=== PATIENT | female | born 1940 | race Caucasian/White ===

== ENCOUNTER 2018-10-17 16:23 | Inpatient (IN) | payer MEDICARE, MEDICAID ==
[2018-10-17] MEDS ORDERED: Dextrose 5% in Water 1,000 ML IV PRN (18:14)
[2018-10-17] MEDS ORDERED: Dextrose 50% Abboject 50 ML SYRINGE SLOW IVP PRN (18:14)
[2018-10-17] MEDS: Heparin 5,000 UNITS/ML VIAL SC SCH (21:06)
[2018-10-17] MEDS: Lactated Ringer's 1,000 ML IV SCH (22:21)
--- NOTE | 2018-10-17 23:44 | PDOC.FPRHP ---
- History of Present Illness Chief Complaint: "tired of being weak" History of Present Illness: Patient is a 78YO female with a PMH significant for CAD s/p CABG & PVD , DMII, & CKD stage IV who presented to an outside ED with a chief complaint of progressively worsening generalized weakness that started about 3 weeks ago. The patient reported visiting her local [employer] on October 06 due to weakness and diarrhea and stated she was told she likely had a viral infection. She said her [employer] instructed her to take probiotics & OTC nausea medicine and to drink fluids with electrolytes like gatorade, which she did. However, she reported that her symptoms did not improve. The patient reported that her weakness had become so severe that doing something as simple as walking from her room to the bathroom took everything out of her. She also endorsed some associated SOB with exertion , chills, decreased appetite, lightheadedness, and dry mouth. She also endorsed some episodic diarrhea over the last 3 weeks that has improved over the last 3 days. The patient denied ever seeing any daniel blood or black stools. She also denied ever having any mucus in her stools or any recent antibiotic use or sick contacts. Lastly, the patient denied any urinary symptoms such as dysuria, frequency, or suprapubic pain. Lastly, of note, the patient reported having had a 10 minute episode of sharp, central, non-radiating chest pain around 13:30 while she was laying down. She reported some associated nausea & said she vomited about 3 times but did not note any blood in her vomitus. The patient denied any associated diaphoresis, numbness or focal weakness. ED Course: Transfer from [facility] where she was given 1L of NS and continued on NS @ 150mL/hr. Was also given 4mg of morphine, 3 amps of bicarb & 1g of rocephin. - Allergies/Adverse Reactions Allergies Allergy/AdvReac Type Severity Reaction Status Date / Time dopamine Allergy Verified 10/17/18 18:38 ranolazine [From Ranexa] Allergy Verified 10/17/18 18:38 sulfamethoxazole Allergy Verified 10/17/18 18:38 [From Bactrim] trimethoprim [From Bactrim] Allergy Verified 10/17/18 18:38 - Home Medications Medication Instructions Recorded Confirmed Type Ascorbic Acid [Vitamin C] 500 mg PO BID 10/17/18 10/17/18 History Aspirin [Ecotrin] 81 mg PO DAILY 10/17/18 10/17/18 History Cholecalciferol (Vitamin D3) 1,000 unit PO DAILY 10/17/18 10/17/18 History [Vitamin D3] Clopidogrel Bisulfate [Plavix] 75 mg PO DAILY 10/17/18 10/17/18 History Cyanocobalamin (Vitamin B-12) 1,000 mcg PO DAILY 10/17/18 10/17/18 History [Vitamin B12] Ezetimibe 0.5 tab PO DAILY 10/17/18 10/17/18 History HYDROcodone/Acetaminophen [[place] 1 each PO TID PRN 10/17/18 10/17/18 History 10-325 Tablet] HumaLOG 2 unit SC TID-WM 10/17/18 10/17/18 History Insulin Detemir [Levemir] 10 unit SQ HS 10/17/18 10/17/18 History Iron 65 mg PO DAILY 10/17/18 10/17/18 History Isosorbide Mononitrate [Isosorbide 30 mg PO DAILY 10/17/18 10/17/18 History Mononitrate ER] Magnesium Oxide 400 mg PO BID 10/17/18 10/17/18 History Pantoprazole [Protonix] 40 mg PO BID 10/17/18 10/17/18 History Rosuvastatin Calcium [Crestor] 0.5 tab PO HS 10/17/18 10/17/18 History busPIRone HCl [Buspirone HCl] 10 mg PO BID 10/17/18 10/17/18 History - History PMHx: CAD s/p CABG x3, h/o RI, CKDIV, DMII, PVD PSHx: left CEA, h/o multiple CABGs, L hip and femur fracture repairs, hysterectomy (1963), pacemaker placement (April 2018) FHx: Mother- CAD & RI Brother - CAD & RI Sister- DMII & CAD Social: Lives in [place] with her son. Former smoker w/ an ~40 pack year smoking history. No EtOH or drug use. - Review of Systems General: reports: fever/chills, weight/appetite/sleep changes, fatigue Eyes: reports: other (blurry vision (chronic)). denies: eye pain ENT: reports: other (no sore throat). denies: nasal congestion Respiratory: reports: shortness of breath. denies: cough Cardiovascular: reports: chest pain. denies: palpitation, edema Gastrointestinal: reports: nausea, vomiting, diarrhea. denies: constipation, GI bleeding Genitourinary: reports: other (no frequency). denies: dysuria Skin: denies: rashes, itching Musculoskeletal: denies: swelling, arthritis/arthralgias Neurological: reports: weakness (generalized). denies: numbness, syncope Psychological: denies: anxiety, depression - Vital signs BP: 119/54 HR: 66 RR: 17 Tmax: 97.6F Pox: 99% on RA Wt: 60.691 kg - Physical Exam Constitutional: NAD, awake, alert and oriented, other (thin and frail appearing elderly causacian lady) HEENT: normocephalic and atraumatic, conjunctiva clear, grossly normal vision, grossly normal hearing, oropharynx clear, other (dry mucus membranes) Neck: supple, FROM Chest: no-tender to palpation Heart: RRR, normal S1/S2, pulses present, no edema, other (3/6 systolic murmur heard best at right upper sternal border w/ radiation into B/L carotids) Lungs: CTAB, no respiratory distress, no wheezing, other (fair air movement) Abdomen: soft, non-tender, bowel sounds present Musculoskeletal: normal structure, normal tone, ROM grossly normal, other ( careful gait) Neurological: no focal deficit -Neurological: symmetric facial movements Skin: no rash/lesions, no jaundice Heme/Lymphatic: no unusual bruising or bleeding Psychiatric: normal mood and affect, good judgment and insight, intact recent and remote memory FMR H&P: Results - Labs Result Diagrams: 10/18/18 04:56 10/18/18 00:39 Lab results: WBC- 3.8 H/H- 8.1/20.6 Plt- 163 Na- 137 K- 4.6 Cl- 106 HCO3- 9 BUN- 164 Cr- 16.7 BG- 133 trop- 0.061 Additional comment: UA- cloudy & + for blood & leukocytes - Radiology Interpretation Chest x-ray Status: report reviewed by me (L-sided pleural effusion) FMR H&P: A/P - Problem List (1) UTI (urinary tract infection) Current Visit: Yes Status: Acute Qualifiers: Urinary tract infection type: acute cystitis (2) CAD (coronary artery disease) Current Visit: Yes Status: Chronic Code(s): I25.10 - ATHSCL HEART DISEASE OF [place] CORONARY ARTERY W/O ANG PCTRS (3) DMII (diabetes mellitus, type 2) Current Visit: Yes Status: Chronic Qualifiers: Diabetes mellitus bed bug exterminator insulin use: with jail use (4) CKD (chronic kidney disease), stage IV Current Visit: Yes Status: Acute Code(s): N18.4 - CHRONIC KIDNEY DISEASE, STAGE 4 (SEVERE) (5) ARF (acute renal failure) Current Visit: Yes Status: Chronic Qualifiers: Acute renal failure type: with acute tubular necrosis Qualified Code(s): N17.0 - Acute kidney failure with tubular necrosis (6) History of RI (myocardial infarction) Current Visit: Yes Status: Chronic Code(s): I25.2 - OLD MYOCARDIAL INFARCTION (7) PVD (peripheral vascular disease) Current Visit: Yes Status: Chronic Code(s): I73.9 - PERIPHERAL VASCULAR DISEASE, UNSPECIFIED - Plan 78YOF w/ a PMH significant for DMII, PVD, & CAD w/ h/o RI and CABG x3 who was transferred from an outside ED after presenting there with a CC of progressively worsening fatigue, generalized weakness, chills and episodic diarrhea for the last 2 weeks found to have a UTI on UA. ARF superimposed on CKD stage IV: - Patient appeared clinically dry on exam and her inital BUN & Cr were significantly elevated at 164 & 16.7. - Most likely pre-renal in origin 2/2 decreased PO intake from UTI. - s/p 1L of NS at outside ED. Will continue gentle IVFs w/ LR @ 70mL/hr. - Will consult patient's reimbursement director, Dr. Tanner, for further management recommendations. - Will continue to monitor closely w/ QD labs. UTI: - Patient was found to have a dirty UA that was noted to be cloudy & + for blood and leukocytes. - Culture pending. - Was given one 1g dose of IV rocephin at outside ED which we will continue. - Will encourage increased PO hydration and will start on gentle IVFs as described above. Indeterminate troponin: - Initial troponin of 0.061 at outside ED. Likely related to ARF. - ECG at outside ED did not show any concerning ST segment changes. - Will continue to trend x2. Anemia: - Aware, Hgb of 8.1 on admission. Likely 2/2 CKD. - Will resume home iron and vitamins. Leukopenia: - WBC of 3.8 at outside ED. - Likely related to pancytopenia from CKD but could also be 2/2 UTI. DMII: - Patient is on insulin at home. Will resume once patient is adequately taking in PO. - Will resume home metformin. - Will order ACHS accuchecks & hypoglycemia protocol. CAD s/p CABG: - Aware, will resume home meds. PVD: - Aware, will resume home meds. FMR H&P: Upper Level - Pertinent history 78 yo F with PMHx diffuse PVD, CAD, IDDM and CKD Stage IV who presented to OSH with cc of weakness that has worsened over the last month. She states that earlier in the month she had diarrhea on and off and thought it was a viral infection. She took probiotics and drank fluids with minimal relief of symptoms. She has become progressively more weak and tired since that time. She reports the diarrhea has improved and she has not had any for the last few days. She has had regular UOP without noting any foul odor or hematuria. She was seen at OSH and found to have ARF. Her reimbursement director, Dr. Tanner, was contacted and recommended direct admission to [facility]. - Pertinent findings VSS Gen: awake, alert, oriented HEENT: conjunctiva non-injected, trachea midline CV: RRR, 3/6 systolic murmur noted RESP: CTAB ABD: soft, nontender, nondistended EXT: no edema - Plan Date/Time: 10/17/18 2342 78 yo F with Acute Renal Failure superimposed on CKD stage IV likely 2/2 acute cystitis and dehydration 1. Acute Renal Failure - Dr Tanner notified at OSH - Will start gentle fluids and monitor BMP - Renally dose medications 2. Acute cystitis - Dirty UA - UA and UCx ordered repeat here, will need to f/u UCx from OSH - Rocephin 3. Indeterminate troponin: - Asymptomatic at this time, will repeat and monitor on tele Please see Dr. Loo's H&P regarding remainder of A/P I, Odette Lal MD, PGY-3, have evaluated this patient and agree with findings/ plan as outlined by planner intern resident. Pertinent changes/additions are listed here. Attending Addendum - Attending Addendum Date/Time: 10/17/18 1830 I personally evaluated the patient and discussed the management with Dr. Loo. I agree with the History, Examination, Assessment and Plan documented above with any addition or exceptions noted below. The patient presented to the [place] ER with worsening weakness. She has had close to amonth long history of intermittent n/v/d. She went to PCP and was told she has viral gastroenteritis. Her weakness worsened and she was noted to have a creatinine of 16 in the ER ad BUN 164. She was found to have a uti. She will be treated with Rocephin. We will continue IV fluids. Dr. Tanner is consulted who is her regular reimbursement director. Trend creatinine. Check Echo. Check cardiac enzymes.
[2018-10-17] MEDS ORDERED: cefTRIAXone\\ROCEPHIN 1 GM in Sodium Chloride 0.9% 100 ML IVPB SCH (23:59)
[2018-10-18 01:15] LABS: Troponin I 0.128 ng/mL (< 0.028)
[2018-10-18 01:24] LABS: Hemoglobin A1c 7.7 % (4.0-6.0)
[2018-10-18 01:25] LABS: Anion Gap 19 mmol/L (10-20); Calc. Creatinine Clearance 3 mL/min (70-130); Calcium 8.8 mg/dL (7.8-10.44); Carbon Dioxide 12 mmol/L (23-31); Chloride 113 mmol/L (98-107); Estimated GFR-MDRD 2; Glucose 138 mg/dL (83-110); Magnesium 1.9 mg/dL (1.6-2.6); Potassium 4.2 mmol/L (3.5-5.1); Sodium 140 mmol/L (136-145)
[2018-10-18 01:37] LABS: BUN (Urea Nitrogen) 136 mg/dL (9.8-20.1)
[2018-10-18 05:45] LABS: CKMB 5.5 ng/mL (0-6.6); Phosphorus 7.9 mg/dL (2.3-4.7); Troponin I 0.118 ng/mL (< 0.028)
[2018-10-18] MEDS: HYDROcodone/Acetaminophen 10/325 mg Tablet PO PRN (05:45)
[2018-10-18] MEDS: Ondansetron ODT 4 MG TAB PO PRN (07:36)
--- NOTE | 2018-10-18 07:55 | PDOC.FM ---
- Subjective Subjective: No acute events overnight. Endorses nausea, denies feeling SOB, dyspnea on exertion. Denies dysuria, chest pain. Endorses orthopnea. - Objective MAR Reviewed: Yes Vital Signs & Weight: Vital Signs (12 hours) Temp Pulse Resp BP Pulse Ox 10/18/18 06:52 60 14 102/46 L 93 L 10/18/18 03:12 97.4 F L 79 18 117/54 L 96 10/18/18 00:00 97.8 F 69 18 110/52 L 96 10/17/18 20:00 97.6 F 66 17 119/54 L 99 Weight Weight 60.691 kg I&O: 10/17/18 10/18/18 10/19/18 06:59 06:59 06:59 Intake Total 660 Output Total 0 Balance 660 Result Diagrams: 10/18/18 04:56 10/18/18 00:39 <Leatha Springer - Last Filed: 10/18/18 11:15> - Objective Vital Signs & Weight: Vital Signs (12 hours) Temp Pulse Resp BP Pulse Ox 10/18/18 11:40 97.7 F 61 16 94/45 L 10/18/18 09:17 97.6 F 10/18/18 07:09 93 L 10/18/18 06:52 60 14 102/46 L 93 L 10/18/18 03:12 97.4 F L 79 18 117/54 L 96 Weight Weight 60.691 kg I&O: 10/17/18 10/18/18 10/19/18 06:59 06:59 06:59 Intake Total 660 Output Total 0 100 Balance 660 -100 Result Diagrams: 10/18/18 04:56 10/18/18 00:39 <Susana Weiss - Last Filed: 10/18/18 14:20> Phys Exam - Physical Examination Constitutional: NAD HEENT: PERRLA, sclera anicteric dry oral mucosa Neck: full ROM fine bibasilar crackles Cardiovascular: RRR 2/6 systolic murmur Gastrointestinal: soft, non-tender, no distention, positive bowel sounds Musculoskeletal: no edema, pulses present Neurological: non-focal, moves all 4 limbs Psychiatric: A&O x 3 Deviation from normal: slowed speech, not slurred <Leatha Springer - Last Filed: 10/18/18 11:15> Dx/Plan (1) ARF (acute renal failure) Status: Chronic Qualifiers: Acute renal failure type: with acute tubular necrosis Qualified Code(s): N17.0 - Acute kidney failure with tubular necrosis (2) CKD (chronic kidney disease), stage IV Code(s): N18.4 - CHRONIC KIDNEY DISEASE, STAGE 4 (SEVERE) Status: Acute (3) UTI (urinary tract infection) Status: Acute Qualifiers: Urinary tract infection type: acute cystitis (4) History of [place] (myocardial infarction) Code(s): I25.2 - OLD MYOCARDIAL INFARCTION Status: Chronic (5) PVD (peripheral vascular disease) Code(s): I73.9 - PERIPHERAL VASCULAR DISEASE, UNSPECIFIED Status: Chronic - Plan Plan: 78 yo F with ARF on CKD IV, UTI. ARF on CKD stage IV -BUN/Cr improved at 136/14 with gentle fluids -Continue NS @ 70cc/hr -Dr. Tanner consulted, appreciate recs -Continue monitoring with labs -Respiratory status stable -Due to extensive cardiac hx will order TTE to eval for any new onset CHF that could be contributing to fluid overload UTI - Patient was found to have a dirty UA that was noted to be cloudy & + for blood and leukocytes. - Culture pending. - Was given one 1g dose of IV rocephin at outside ED which we will continue. - Will encourage increased PO hydration and will start on gentle IVFs as described above. Indeterminate troponin -0.061-> .128 -> .118. Trending down, likely due to demand Anemia - Aware, Hgb of 8.1 on admission. Likely 2/2 CKD. - Will resume home iron and vitamins. Leukopenia - WBC of 3.8 at outside ED. - Likely related to pancytopenia from CKD but could also be 2/2 UTI. IDDM2 - Patient is on insulin at home. Will resume once patient is adequately taking in PO. - Sliding scale to cover - Hold home metformin CAD s/p CABG - Aware, will resume home meds. PVD - Aware, will resume home meds. dvt ppx: heparin Discussed with Dr. Weiss <Leatha Springer - Last Filed: 10/18/18 11:15> (1) UTI (urinary tract infection) Status: Acute Qualifiers: Urinary tract infection type: acute cystitis (2) CAD (coronary artery disease) Code(s): I25.10 - ATHSCL HEART DISEASE OF [place] CORONARY ARTERY W/O ANG PCTRS Status: Chronic (3) DMII (diabetes mellitus, type 2) Status: Chronic Qualifiers: Diabetes mellitus long term care administrator insulin use: with long term care administrator use (4) CKD (chronic kidney disease), stage IV Code(s): N18.4 - CHRONIC KIDNEY DISEASE, STAGE 4 (SEVERE) Status: Acute (5) ARF (acute renal failure) Status: Chronic Qualifiers: Acute renal failure type: with acute tubular necrosis Qualified Code(s): N17.0 - Acute kidney failure with tubular necrosis (6) History of NV (myocardial infarction) Code(s): I25.2 - OLD MYOCARDIAL INFARCTION Status: Chronic (7) PVD (peripheral vascular disease) Code(s): I73.9 - PERIPHERAL VASCULAR DISEASE, UNSPECIFIED Status: Chronic <Susana Weiss - Last Filed: 10/18/18 14:20> Attending Addendum - Attending Addendum Date/Time: 10/18/18 0311 I personally evaluated the patient and discussed the management with Dr. Springer. I agree with the History, Examination, Assessment and Plan documented above with any addition or exceptions noted below. The patient's creatinine is minimally improved. Dr. Tanner has been consulted and we are waiting on his recs. Echo will be ordered. Continue IV antibiotics. <Susana Weiss - Last Filed: 10/18/18 14:20>
[2018-10-18] MEDS: Heparin 5,000 UNITS/ML VIAL SC SCH ×3 (09:19→22:18)
[2018-10-18] MEDS: Ascorbic Acid 500 mg Chewable Tablet PO SCH ×2 (09:19→22:23)
[2018-10-18] MEDS: Ezetimibe 10 MG TAB PO SCH (09:19)
[2018-10-18] MEDS: Aspirin 81 mg Enteric Coated Tablet PO SCH (09:20)
[2018-10-18] MEDS: Ferrous Sulfate 325 MG TAB PO SCH (09:20)
[2018-10-18] MEDS: Magnesium Oxide 400 MG TAB PO SCH ×2 (09:20→22:23)
[2018-10-18] MEDS: Cyanocobalamin (Vitamin B-12) 1,000 MCG TAB PO SCH (09:20)
[2018-10-18] MEDS: Clopidogrel Bisulfate 75 MG TAB PO SCH (09:20)
[2018-10-18 10:14] LABS: #Basophils 0.1 thou/uL (0.0-0.2); #Eosinphils 0.2 thou/uL (0.0-0.7); #Lymphocytes 1.1 thou/uL (1.20-3.40); #Monocytes 0.4 thou/uL (0.11-0.59); #Neutrophils 1.4 thou/uL (1.40-6.50); %Basophils 1.8 % (0.0-1.0); %Lymphocytes 34.4 % (21.0-51.0); %Monocytes 13.8 % (0.0-10.0); Hemoglobin 7.4 g/dL (12.0-16.0); Mean Corpuscular HGB CONC 32.8 g/dL (32.0-36.0); Mean Corpuscular Hemoglobin 30.6 pg (27.0-31.0); Mean Corpuscular Volume 93.3 fL (78.0-98.0); Mean Platelet Volume 8.2 fL (7.4-10.4); Platelet Count 152 thou/uL (130-400); RBC Distribution Width 13.3 % (11.5-14.5); Red Blood Cell (RBC) Count 2.41 mill/uL (4.20-5.40); White Blood Cell (WBC) Count 3.1 thou/uL (4.8-10.8)
[2018-10-18] MEDS ORDERED: Sodium Chloride 0.9% 1,000 ML IV SCH (11:15)
[2018-10-18 11:19] LABS: Bilirubin Negative (Negative); Blood, Urine Moderate (Negative); Glucose, Urine (Dipstick) Negative (Negative); Leukocyte Large (Negative); Nitrite Positive (Negative); Protein, Urine (Dipstick) 100 mg/dL (Neg-Trace); Urobilinogen 0.2 mg/dL (0.2-1.0)
[2018-10-18 11:23] LABS: Clarity CLOUDY (Clear)
[2018-10-18 11:32] LABS: Bacteria/HPF 4+ HPF (None Seen); Hyaline Casts/LPF NONE SEEN LPF (0-3 Hyaline)
[2018-10-18] MEDS ORDERED: cefTRIAXone\\ROCEPHIN 1 GM in Sodium Chloride 0.9% 100 ML IVPB SCH (12:10)
[2018-10-18 13:01] LABS: Creatinine, Urine 56.25 mg/dL (47-110)
[2018-10-18] MEDS: Ondansetron PF 4 MG/2 ML Vial IVP PRN ×2 (14:07→21:29)
[2018-10-18] MEDS: Lactated Ringer's 1,000 ML IV SCH (19:35)
[2018-10-18 20:37] LABS: BUN (Urea Nitrogen) 133 mg/dL (9.8-20.1)
[2018-10-18 20:58] LABS: Chloride 113 mmol/L (98-107); Potassium 4.4 mmol/L (3.5-5.1); Sodium 141 mmol/L (136-145)
[2018-10-18 20:59] LABS: Calcium 8.8 mg/dL (7.8-10.44); Glucose 136 mg/dL (83-110)
[2018-10-18 21:01] LABS: Anion Gap 23 mmol/L (10-20)
[2018-10-18 21:03] LABS: Calc. Creatinine Clearance 3 mL/min (70-130); Estimated GFR-MDRD 3
[2018-10-18 21:06] LABS: Carbon Dioxide 9 mmol/L (23-31)
[2018-10-18] MEDS ORDERED: Sodium Bicarbonate 50 MEQ in Dextrose 5 %-0.45 % NaCl 1,000 ML IV SCH (22:15)
[2018-10-18] MEDS: Rosuvastatin 20 MG TAB PO SCH (22:23)
[2018-10-18] MEDS ORDERED: Pantoprazole 40 MG VIAL IVP SCH (23:45)
[2018-10-19] MEDS: cefTRIAXone\\ROCEPHIN 1 GM in Sodium Chloride 0.9% 100 ML IVPB SCH ×2 (00:17→23:37)
--- NOTE | 2018-10-19 05:26 | PDOC.FM ---
- Subjective Subjective: Patient bicarb critical at 9 and was started on IV bicarb. No acute events overnight otherwise. Denies chest pain, SOB, leg swelling. - Objective MAR Reviewed: Yes Vital Signs & Weight: Vital Signs (12 hours) Temp Pulse Resp BP Pulse Ox 10/19/18 04:00 98.2 F 64 18 101/49 L 97 10/18/18 23:45 97.9 F 69 18 115/51 L 98 10/18/18 20:00 97.9 F 68 18 119/55 L 98 Weight Weight 60.691 kg I&O: 10/17/18 10/18/18 10/19/18 06:59 06:59 06:59 Intake Total 660 840 Output Total 0 200 Balance 660 640 Result Diagrams: 10/19/18 05:27 10/19/18 05:27 <Leatha Springer - Last Filed: 10/19/18 09:46> - Objective Vital Signs & Weight: Vital Signs (12 hours) Temp Pulse Resp BP Pulse Ox 10/19/18 15:00 97.5 F L 63 19 104/51 L 94 L 10/19/18 11:00 97.7 F 68 19 124/57 L 94 L 10/19/18 07:00 97.3 F L 65 16 118/53 L 93 L 10/19/18 04:00 98.2 F 64 18 101/49 L 97 Weight Weight 60.691 kg I&O: 10/18/18 10/19/18 10/20/18 06:59 06:59 06:59 Intake Total 660 840 Output Total 0 200 Balance 660 640 Result Diagrams: 10/19/18 05:27 10/19/18 05:27 <Susana Weiss - Last Filed: 10/19/18 15:32> Phys Exam - Physical Examination Constitutional: NAD cachectic appearing HEENT: sclera anicteric dry mucosal membranes Neck: full ROM Respiratory: no wheezing, no rhonchi, clear to auscultation bilateral Cardiovascular: RRR, no significant murmur Gastrointestinal: soft, non-tender, no distention Musculoskeletal: no edema, pulses present Neurological: non-focal, moves all 4 limbs Deviation from normal: sad, sleep affect Deviation from normal: dec skin turgor <Leatha Springer - Last Filed: 10/19/18 09:46> Dx/Plan (1) ARF (acute renal failure) Status: Acute Qualifiers: Acute renal failure type: with acute tubular necrosis Qualified Code(s): N17.0 - Acute kidney failure with tubular necrosis (2) CKD (chronic kidney disease), stage IV Code(s): N18.4 - CHRONIC KIDNEY DISEASE, STAGE 4 (SEVERE) Status: Chronic (3) UTI (urinary tract infection) Status: Acute Qualifiers: Urinary tract infection type: acute cystitis (4) DMII (diabetes mellitus, type 2) Status: Chronic Qualifiers: Diabetes mellitus shelter insulin use: with shelter use (5) History of [place] (myocardial infarction) Code(s): I25.2 - OLD MYOCARDIAL INFARCTION Status: Chronic (6) PVD (peripheral vascular disease) Code(s): I73.9 - PERIPHERAL VASCULAR DISEASE, UNSPECIFIED Status: Chronic - Plan Plan: 78 yo F with ARF on CKD IV, UTI. ARF on CKD stage IV -s/p IV bicarb infusion for HCO3 9 -Creatinine unchanged at 13 with gentle fluids -Electrolytes stable at this time -Dec UO: 200/24 hr -Likely due to worsening of pre-renal JOSE due to poor po intake -Increase D5 1/2NS to 100cc/hr; goal of 400-500cc in 24 hr -Dr. Tanner plans to continue monitoring renal function until this evening with probably initiation of HD if unimproved. -Continue monitoring with daily BMPs -Respiratory status stable -Pending echo to assess for new acute cardiac structural changes UTI - Patient was found to UA consistent with UTI - Culture pending from OSH and here - Continue rocephin Chronic anemia - Aware, Hgb of 8.1 on admission. Likely 2/2 CKD. - Will resume home iron and vitamins. Chronic neutropenia - Possible underlying hematologic malignancy - Will order PBS - Will need outpt workup IDDM2 -Glucose stable - Patient is on insulin at home. Will resume once patient is adequately taking in PO. - Sliding scale to cover Leukopenia - WBC 3.8 -> 3.1 - Likely related to pancytopenia from CKD but could also be 2/2 UTI. CAD s/p CABG - Aware, will resume home meds. PVD - Aware, will resume home meds. Indeterminate troponins -0.061-> .128 -> .118. -Trended down, likely due to demand -No further mgmt at this time, continue to monitor for clinical sxs of ischemic chest pain -Tele monitoring dvt ppx: heparin dispo: Stable. Unimproved creatinine despite gentle fluids. Will inc. fluids & monitor renal function. Goal UO of 400-500cc/24hr. F/u with Dr. Tanner's recs for possible HD Discussed with Dr. Weiss <Leatha Springer - Last Filed: 10/19/18 09:46> (1) UTI (urinary tract infection) Status: Acute Qualifiers: Urinary tract infection type: acute cystitis (2) CAD (coronary artery disease) Code(s): I25.10 - ATHSCL HEART DISEASE OF [place] CORONARY ARTERY W/O ANG PCTRS Status: Chronic (3) DMII (diabetes mellitus, type 2) Status: Chronic Qualifiers: Diabetes mellitus watermelon inspector insulin use: with watermelon inspector use (4) CKD (chronic kidney disease), stage IV Code(s): N18.4 - CHRONIC KIDNEY DISEASE, STAGE 4 (SEVERE) Status: Chronic (5) ARF (acute renal failure) Status: Acute Qualifiers: Acute renal failure type: with acute tubular necrosis Qualified Code(s): N17.0 - Acute kidney failure with tubular necrosis (6) History of [place] (myocardial infarction) Code(s): I25.2 - OLD MYOCARDIAL INFARCTION Status: Chronic (7) PVD (peripheral vascular disease) Code(s): I73.9 - PERIPHERAL VASCULAR DISEASE, UNSPECIFIED Status: Chronic <Susana Weiss - Last Filed: 10/19/18 15:32> Attending Addendum - Attending Addendum Date/Time: 10/19/18 6408 I personally evaluated the patient and discussed the management with Dr. Springer. I agree with the History, Examination, Assessment and Plan documented above with any addition or exceptions noted below. The patient is doing well. She notes nausea is controlled this morning. Bicarb is 8 and creatinine 13. Pt is continuing on iv fluids and we are trending creatinine. F/u with nephrology recs. <Susana Weiss - Last Filed: 10/19/18 15:32>
[2018-10-19] MEDS ORDERED: Sodium Chloride 0.9% 1,000 ML IV SCH (05:30)
[2018-10-19 05:53] LABS: #Eosinphils 0.1 thou/uL (0.0-0.7); #Lymphocytes 0.9 thou/uL (1.20-3.40); #Monocytes 0.5 thou/uL (0.11-0.59); #Neutrophils 2.2 thou/uL (1.40-6.50); %Basophils 0.6 % (0.0-1.0); %Eosinophils 2.2 % (0.0-10.0); %Lymphocytes 23.9 % (21.0-51.0); %Monocytes 13.2 % (0.0-10.0); Hemoglobin 8.1 g/dL (12.0-16.0); Mean Corpuscular HGB CONC 31.6 g/dL (32.0-36.0); Mean Corpuscular Hemoglobin 29.9 pg (27.0-31.0); Mean Corpuscular Volume 94.7 fL (78.0-98.0); Mean Platelet Volume 7.9 fL (7.4-10.4); Platelet Count 173 thou/uL (130-400); RBC Distribution Width 13.4 % (11.5-14.5); White Blood Cell (WBC) Count 3.6 thou/uL (4.8-10.8)
[2018-10-19 06:03] LABS: Anion Gap 23 mmol/L (10-20); Calc. Creatinine Clearance 3 mL/min (70-130); Calcium 8.6 mg/dL (7.8-10.44); Chloride 113 mmol/L (98-107); Estimated GFR-MDRD 3; Glucose 172 mg/dL (83-110); Potassium 4.2 mmol/L (3.5-5.1); Sodium 140 mmol/L (136-145)
[2018-10-19 06:04] LABS: Carbon Dioxide 8 mmol/L (23-31)
[2018-10-19 06:14] LABS: BUN (Urea Nitrogen) 132 mg/dL (9.8-20.1)
[2018-10-19] MEDS: Pantoprazole 40 MG VIAL IVP SCH (08:06)
[2018-10-19] MEDS: Ondansetron PF 4 MG/2 ML Vial IVP PRN (09:00)
[2018-10-19] MEDS: Heparin 5,000 UNITS/ML VIAL SC SCH ×3 (09:03→20:56)
[2018-10-19] MEDS: Clopidogrel Bisulfate 75 MG TAB PO SCH (09:03)
[2018-10-19] MEDS: Ascorbic Acid 500 mg Chewable Tablet PO SCH ×2 (09:04→20:56)
[2018-10-19] MEDS: Aspirin 81 mg Enteric Coated Tablet PO SCH (09:04)
[2018-10-19] MEDS: busPIRone HCl 10 MG TAB PO SCH ×2 (09:04→20:56)
[2018-10-19] MEDS: Ezetimibe 10 MG TAB PO SCH (09:05)
[2018-10-19] MEDS: Cyanocobalamin (Vitamin B-12) 1,000 MCG TAB PO SCH (09:05)
[2018-10-19] MEDS: Magnesium Oxide 400 MG TAB PO SCH ×2 (09:06→20:56)
[2018-10-19] MEDS: Ferrous Sulfate 325 MG TAB PO SCH (09:06)
[2018-10-19] MEDS: Sodium Bicarbonate 50 MEQ in Dextrose 5 %-0.45 % NaCl 1,000 ML IV SCH ×2 (10:44→20:54)
[2018-10-19] MEDS: Promethazine HCl 25 MG/ML VIAL IM/IV PRN ×2 (10:47→19:33)
[2018-10-19] MEDS: HumaLOG 300 UNITS/3 ML VIAL SC PRN (17:19)
[2018-10-19] MEDS: HYDROcodone/Acetaminophen 10/325 mg Tablet PO PRN (17:19)
[2018-10-19] MEDS: Rosuvastatin 20 MG TAB PO SCH (20:56)
[2018-10-20 05:21] LABS: #Eosinphils 0.2 thou/uL (0.0-0.7); #Lymphocytes 1.3 thou/uL (1.20-3.40); #Monocytes 0.7 thou/uL (0.11-0.59); #Neutrophils 2.7 thou/uL (1.40-6.50); %Basophils 0.6 % (0.0-1.0); %Eosinophils 4.8 % (0.0-10.0); %Lymphocytes 26.5 % (21.0-51.0); %Monocytes 14.2 % (0.0-10.0); %Neutrophils 53.8 % (42.0-75.0); Hemoglobin 7.5 g/dL (12.0-16.0); Mean Corpuscular HGB CONC 30.7 g/dL (32.0-36.0); Mean Corpuscular Hemoglobin 29.5 pg (27.0-31.0); Mean Corpuscular Volume 95.8 fL (78.0-98.0); Mean Platelet Volume 7.9 fL (7.4-10.4); Platelet Count 175 thou/uL (130-400); RBC Distribution Width 13.5 % (11.5-14.5); Red Blood Cell (RBC) Count 2.55 mill/uL (4.20-5.40); White Blood Cell (WBC) Count 4.9 thou/uL (4.8-10.8)
[2018-10-20] MEDS: Ondansetron PF 4 MG/2 ML Vial IVP PRN ×2 (05:28→13:38)
[2018-10-20] MEDS: Sodium Bicarbonate 50 MEQ in Dextrose 5 %-0.45 % NaCl 1,000 ML IV SCH ×3 (05:29→21:00)
[2018-10-20 05:37] LABS: Anion Gap 21 mmol/L (10-20); Calc. Creatinine Clearance 4 mL/min (70-130); Calcium 8.2 mg/dL (7.8-10.44); Carbon Dioxide 11 mmol/L (23-31); Chloride 111 mmol/L (98-107); Estimated GFR-MDRD 3; Glucose 211 mg/dL (83-110); Potassium 3.6 mmol/L (3.5-5.1); Sodium 139 mmol/L (136-145)
[2018-10-20 05:56] LABS: BUN (Urea Nitrogen) 117 mg/dL (9.8-20.1)
[2018-10-20] MEDS: Aspirin 81 mg Enteric Coated Tablet PO SCH (08:18)
[2018-10-20] MEDS: Heparin 5,000 UNITS/ML VIAL SC SCH ×3 (08:18→21:01)
[2018-10-20] MEDS: Ascorbic Acid 500 mg Chewable Tablet PO SCH ×2 (08:18→21:00)
[2018-10-20] MEDS: Pantoprazole 40 MG VIAL IVP SCH (08:18)
[2018-10-20] MEDS: busPIRone HCl 10 MG TAB PO SCH ×2 (08:18→21:01)
[2018-10-20] MEDS: Clopidogrel Bisulfate 75 MG TAB PO SCH (08:18)
[2018-10-20] MEDS: Magnesium Oxide 400 MG TAB PO SCH ×2 (08:19→21:00)
[2018-10-20] MEDS: Ezetimibe 10 MG TAB PO SCH (08:19)
[2018-10-20] MEDS: Cyanocobalamin (Vitamin B-12) 1,000 MCG TAB PO SCH (08:19)
[2018-10-20] MEDS: Ferrous Sulfate 325 MG TAB PO SCH (08:19)
[2018-10-20] MEDS: HumaLOG 300 UNITS/3 ML VIAL SC PRN (11:08)
--- NOTE | 2018-10-20 11:59 | PDOC.FM ---
- Subjective Subjective: SUDEEP overnight. Pt reports she feels fatigued, otherwise ok. No other complaints. - Objective Vital Signs & Weight: Vital Signs (12 hours) Temp Pulse Resp BP Pulse Ox 10/20/18 11:10 98.2 F 62 18 120/56 L 96 10/20/18 07:25 98.0 F 63 17 110/64 94 L 10/20/18 03:06 97.9 F 67 19 107/51 L 94 L Weight Weight 65.045 kg I&O: 10/19/18 10/20/18 10/21/18 06:59 06:59 06:59 Intake Total 840 3147 Output Total 200 775 Balance 640 2372 Result Diagrams: 10/20/18 04:56 10/20/18 04:56 <Stuart Lau - Last Filed: 10/20/18 11:55> - Objective Vital Signs & Weight: Vital Signs (12 hours) Temp Pulse Resp BP Pulse Ox 10/20/18 11:10 98.2 F 62 18 120/56 L 96 10/20/18 07:25 98.0 F 63 17 110/64 94 L 10/20/18 03:06 97.9 F 67 19 107/51 L 94 L Weight Weight 65.045 kg I&O: 10/19/18 10/20/18 10/21/18 06:59 06:59 06:59 Intake Total 840 3147 Output Total 200 775 Balance 640 2372 Result Diagrams: 10/20/18 04:56 10/20/18 04:56 <Susana Weiss - Last Filed: 10/20/18 13:17> Phys Exam - Physical Examination Constitutional: NAD HEENT: PERRLA, sclera anicteric Neck: no JVD Respiratory: no wheezing, no rales, no rhonchi, clear to auscultation bilateral Cardiovascular: RRR, no significant murmur, no rub Gastrointestinal: soft, non-tender, no distention, positive bowel sounds Musculoskeletal: pulses present, edema present Neurological: non-focal, moves all 4 limbs Psychiatric: normal affect, A&O x 3 Skin: normal turgor, cap refill <2 seconds <Stuart Lau - Last Filed: 10/20/18 11:55> Dx/Plan (1) ARF (acute renal failure) Status: Acute Qualifiers: Acute renal failure type: with acute tubular necrosis Qualified Code(s): N17.0 - Acute kidney failure with tubular necrosis (2) UTI (urinary tract infection) Status: Acute Qualifiers: Urinary tract infection type: acute cystitis (3) CAD (coronary artery disease) Code(s): I25.10 - ATHSCL HEART DISEASE OF [place] CORONARY ARTERY W/O ANG PCTRS Status: Chronic (4) CKD (chronic kidney disease), stage IV Code(s): N18.4 - CHRONIC KIDNEY DISEASE, STAGE 4 (SEVERE) Status: Chronic (5) DMII (diabetes mellitus, type 2) Status: Chronic Qualifiers: Diabetes mellitus assisted insulin use: with watermelon harvesting supervisor use (6) PVD (peripheral vascular disease) Code(s): I73.9 - PERIPHERAL VASCULAR DISEASE, UNSPECIFIED Status: Chronic - Plan Plan: ARF on CKD stage IV -UO increased slightly to 675/24 hrs - awaiting nephro recs - no HD at this time, creatinine slightly improved UTI - Patient was found to UA consistent with UTI - Culture pending from OSH and here - Continue rocephin - f/u with OSH culture and sensitivities Chronic anemia - stable Chronic neutropenia - PBS pending IDDM2 - Sliding scale to cover Leukopenia - stable - Likely related to pancytopenia from CKD CAD s/p CABG - home meds. PVD - home meds. dvt ppx: heparin dispo: Stable. slightly improved creatinine with increased IVF, cont to monitor UO and await nephrology recommendations. F/u OSH cultures and sensitivities. <Stuart Lau - Last Filed: 10/20/18 11:55> (1) UTI (urinary tract infection) Status: Acute Qualifiers: Urinary tract infection type: acute cystitis (2) CAD (coronary artery disease) Code(s): I25.10 - ATHSCL HEART DISEASE OF [place] CORONARY ARTERY W/O ANG PCTRS Status: Chronic (3) DMII (diabetes mellitus, type 2) Status: Chronic Qualifiers: Diabetes mellitus assisted insulin use: with assisted use (4) CKD (chronic kidney disease), stage IV Code(s): N18.4 - CHRONIC KIDNEY DISEASE, STAGE 4 (SEVERE) Status: Chronic (5) ARF (acute renal failure) Status: Acute Qualifiers: Acute renal failure type: with acute tubular necrosis Qualified Code(s): N17.0 - Acute kidney failure with tubular necrosis (6) History of [place] (myocardial infarction) Code(s): I25.2 - OLD MYOCARDIAL INFARCTION Status: Chronic (7) PVD (peripheral vascular disease) Code(s): I73.9 - PERIPHERAL VASCULAR DISEASE, UNSPECIFIED Status: Chronic <Susana Weiss - Last Filed: 10/20/18 13:17> Attending Addendum - Attending Addendum Date/Time: 10/20/18 1066 I personally evaluated the patient and discussed the management with Dr. Lau. I agree with the History, Examination, Assessment and Plan documented above with any addition or exceptions noted below. The patient's creatinine is minimally improved. She remains on IV fluids. Will f/u with nephrology recs. <Susana Weiss - Last Filed: 10/20/18 13:17>
[2018-10-20] MEDS: Rosuvastatin 20 MG TAB PO SCH (21:00)
[2018-10-20] MEDS: cefTRIAXone\\ROCEPHIN 1 GM in Sodium Chloride 0.9% 100 ML IVPB SCH (23:51)
[2018-10-21 05:20] LABS: #Eosinphils 0.2 thou/uL (0.0-0.7); #Monocytes 0.7 thou/uL (0.11-0.59); #Neutrophils 3.6 thou/uL (1.40-6.50); %Basophils 0.7 % (0.0-1.0); %Eosinophils 3.3 % (0.0-10.0); %Lymphocytes 18.5 % (21.0-51.0); %Monocytes 12.3 % (0.0-10.0); %Neutrophils 65.2 % (42.0-75.0); Hemoglobin 7.7 g/dL (12.0-16.0); Mean Corpuscular HGB CONC 31.8 g/dL (32.0-36.0); Mean Corpuscular Hemoglobin 29.9 pg (27.0-31.0); Mean Corpuscular Volume 94.3 fL (78.0-98.0); Mean Platelet Volume 7.5 fL (7.4-10.4); Platelet Count 169 thou/uL (130-400); RBC Distribution Width 13.4 % (11.5-14.5); Red Blood Cell (RBC) Count 2.57 mill/uL (4.20-5.40); White Blood Cell (WBC) Count 5.5 thou/uL (4.8-10.8)
[2018-10-21] MEDS: Sodium Bicarbonate 50 MEQ in Dextrose 5 %-0.45 % NaCl 1,000 ML IV SCH ×3 (05:31→21:39)
[2018-10-21 05:32] LABS: Anion Gap 16 mmol/L (10-20); BUN (Urea Nitrogen) 119 mg/dL (9.8-20.1); Calc. Creatinine Clearance 4 mL/min (70-130); Calcium 7.9 mg/dL (7.8-10.44); Carbon Dioxide 15 mmol/L (23-31); Chloride 107 mmol/L (98-107); Estimated GFR-MDRD 3; Glucose 208 mg/dL (83-110); Potassium 3.1 mmol/L (3.5-5.1); Sodium 135 mmol/L (136-145)
[2018-10-21] MEDS ORDERED: Potassium Chloride 20 MEQ TAB PO SCH (06:45)
[2018-10-21] MEDS: Ascorbic Acid 500 mg Chewable Tablet PO SCH ×2 (08:58→21:32)
[2018-10-21] MEDS: Aspirin 81 mg Enteric Coated Tablet PO SCH (08:59)
[2018-10-21] MEDS: busPIRone HCl 10 MG TAB PO SCH ×2 (08:59→21:33)
[2018-10-21] MEDS: Magnesium Oxide 400 MG TAB PO SCH ×2 (09:00→21:33)
[2018-10-21] MEDS: Clopidogrel Bisulfate 75 MG TAB PO SCH (09:00)
[2018-10-21] MEDS: Pantoprazole 40 MG VIAL IVP SCH (09:00)
[2018-10-21] MEDS: Cyanocobalamin (Vitamin B-12) 1,000 MCG TAB PO SCH (09:00)
[2018-10-21] MEDS: Ferrous Sulfate 325 MG TAB PO SCH (09:00)
[2018-10-21] MEDS: Heparin 5,000 UNITS/ML VIAL SC SCH ×3 (09:01→21:35)
[2018-10-21] MEDS: Ezetimibe 10 MG TAB PO SCH (09:01)
--- NOTE | 2018-10-21 09:21 | PDOC.FM ---
- Subjective Subjective: SUDEEP overnight. Denies CP, NVDC. Mild SOB. - Objective Vital Signs & Weight: Vital Signs (12 hours) Temp Pulse Resp BP Pulse Ox 10/21/18 08:18 97.9 F 69 20 114/49 L 93 L 10/21/18 04:00 98.4 F 69 20 111/51 L 91 L Weight Admit Weight 60.691 kg Weight 69.445 kg I&O: 10/20/18 10/21/18 10/22/18 06:59 06:59 06:59 Intake Total 3147 420 Output Total 775 400 Balance 2372 20 Result Diagrams: 10/21/18 04:47 10/21/18 04:47 <Stuart Lau - Last Filed: 10/21/18 09:17> - Objective Vital Signs & Weight: Vital Signs (12 hours) Temp Pulse Resp BP Pulse Ox 10/21/18 12:25 98.1 F 70 18 110/53 L 92 L 10/21/18 08:18 97.9 F 69 20 114/49 L 93 L 10/21/18 04:00 98.4 F 69 20 111/51 L 91 L Weight Admit Weight 60.691 kg Weight 69.445 kg I&O: 10/20/18 10/21/18 10/22/18 06:59 06:59 06:59 Intake Total 3147 420 Output Total 775 400 Balance 2372 20 Result Diagrams: 10/21/18 04:47 10/21/18 04:47 <Susana Weiss - Last Filed: 10/21/18 15:27> Phys Exam - Physical Examination Constitutional: NAD HEENT: PERRLA, moist MMs, sclera anicteric Neck: no nodes, supple hepatojugular reflux Respiratory: no wheezing, no rales, no rhonchi, clear to auscultation bilateral Cardiovascular: RRR, no significant murmur, no rub Gastrointestinal: soft, non-tender, no distention, positive bowel sounds Musculoskeletal: no edema, pulses present Neurological: non-focal, moves all 4 limbs Psychiatric: normal affect Skin: no rash, normal turgor, cap refill <2 seconds <Stuart Lau - Last Filed: 10/21/18 09:17> Dx/Plan (1) ARF (acute renal failure) Status: Acute Qualifiers: Acute renal failure type: with acute tubular necrosis Qualified Code(s): N17.0 - Acute kidney failure with tubular necrosis (2) UTI (urinary tract infection) Status: Acute Qualifiers: Urinary tract infection type: acute cystitis (3) CAD (coronary artery disease) Code(s): I25.10 - ATHSCL HEART DISEASE OF [place] CORONARY ARTERY W/O ANG PCTRS Status: Chronic (4) CKD (chronic kidney disease), stage IV Code(s): N18.4 - CHRONIC KIDNEY DISEASE, STAGE 4 (SEVERE) Status: Chronic (5) DMII (diabetes mellitus, type 2) Status: Chronic Qualifiers: Diabetes mellitus prison insulin use: with manager terminal use (6) PVD (peripheral vascular disease) Code(s): I73.9 - PERIPHERAL VASCULAR DISEASE, UNSPECIFIED Status: Chronic - Plan Plan: ARF on CKD stage IV -UO 400/24 hrs - awaiting nephro recs - no HD at this time, creatinine slightly improved UTI - Patient was found to UA consistent with UTI - Culture pending from OSH and here - Continue rocephin - f/u with OSH culture and sensitivities Chronic anemia - stable Chronic neutropenia - PBS pending IDDM2 - accuchecks ashs - resume home meds Leukopenia - stable - Likely related to pancytopenia from CKD CAD s/p CABG - home meds. PVD - home meds. dvt ppx: heparin dispo: Stable. slightly improved creatinine cont to monitor UOP and trend Bun/Cr , appreciate nephro recs. <Stuart Lau - Last Filed: 10/21/18 09:17> (1) UTI (urinary tract infection) Status: Acute Qualifiers: Urinary tract infection type: acute cystitis (2) CAD (coronary artery disease) Code(s): I25.10 - ATHSCL HEART DISEASE OF [place] CORONARY ARTERY W/O ANG PCTRS Status: Chronic (3) DMII (diabetes mellitus, type 2) Status: Chronic Qualifiers: Diabetes mellitus prison insulin use: with manager terminal use (4) CKD (chronic kidney disease), stage IV Code(s): N18.4 - CHRONIC KIDNEY DISEASE, STAGE 4 (SEVERE) Status: Chronic (5) ARF (acute renal failure) Status: Acute Qualifiers: Acute renal failure type: with acute tubular necrosis Qualified Code(s): N17.0 - Acute kidney failure with tubular necrosis (6) History of [place] (myocardial infarction) Code(s): I25.2 - OLD MYOCARDIAL INFARCTION Status: Chronic (7) PVD (peripheral vascular disease) Code(s): I73.9 - PERIPHERAL VASCULAR DISEASE, UNSPECIFIED Status: Chronic <Susana Weiss - Last Filed: 10/21/18 15:27> Attending Addendum - Attending Addendum Date/Time: 10/21/18 [id number] I personally evaluated the patient and discussed the management with Dr. Lau. I agree with the History, Examination, Assessment and Plan documented above with any addition or exceptions noted below. The patient is resting. Her creatinine is only minimally improved. She continues on iv fluids per nephrology. Continue pt/ot. <Susana Weiss - Last Filed: 10/21/18 15:27>
[2018-10-21] MEDS: Ondansetron PF 4 MG/2 ML Vial IVP PRN (09:34)
[2018-10-21] MEDS: HumaLOG 300 UNITS/3 ML VIAL SC SCH ×3 (09:57→18:12)
[2018-10-21] MEDS: Epoetin (ESRD) 20,000 UNITS/ML SC SCH (12:20)
[2018-10-21] MEDS: Rosuvastatin 10 MG TAB PO SCH (21:32)
[2018-10-21] MEDS: Insulin Glargine 10 UNITS in Pre-Filled Syringe 1 EACH SC SCH (21:35)
[2018-10-22] MEDS: cefTRIAXone\\ROCEPHIN 1 GM in Sodium Chloride 0.9% 100 ML IVPB SCH ×2 (00:19→23:37)
[2018-10-22 05:51] LABS: #Eosinphils 0.1 thou/uL (0.0-0.7); #Lymphocytes 0.9 thou/uL (1.20-3.40); #Monocytes 0.9 thou/uL (0.11-0.59); #Neutrophils 5.8 thou/uL (1.40-6.50); %Basophils 0.5 % (0.0-1.0); %Eosinophils 1.2 % (0.0-10.0); %Lymphocytes 11.9 % (21.0-51.0); %Monocytes 11.7 % (0.0-10.0); %Neutrophils 74.7 % (42.0-75.0); Hemoglobin 7.9 g/dL (12.0-16.0); Mean Corpuscular HGB CONC 32.2 g/dL (32.0-36.0); Mean Corpuscular Hemoglobin 30.1 pg (27.0-31.0); Mean Corpuscular Volume 93.4 fL (78.0-98.0); Mean Platelet Volume 8.2 fL (7.4-10.4); Platelet Count 187 thou/uL (130-400); RBC Distribution Width 13.2 % (11.5-14.5); Red Blood Cell (RBC) Count 2.63 mill/uL (4.20-5.40); White Blood Cell (WBC) Count 7.7 thou/uL (4.8-10.8)
[2018-10-22 06:14] LABS: Anion Gap 19 mmol/L (10-20); BUN (Urea Nitrogen) 110 mg/dL (9.8-20.1); Calc. Creatinine Clearance 5 mL/min (70-130); Calcium 7.9 mg/dL (7.8-10.44); Carbon Dioxide 16 mmol/L (23-31); Chloride 106 mmol/L (98-107); Estimated GFR-MDRD 3; Glucose 228 mg/dL (83-110); Potassium 3.5 mmol/L (3.5-5.1); Sodium 137 mmol/L (136-145)
[2018-10-22] MEDS: Ascorbic Acid 500 mg Chewable Tablet PO SCH ×2 (08:51→22:01)
[2018-10-22] MEDS: busPIRone HCl 10 MG TAB PO SCH ×2 (08:51→22:02)
[2018-10-22] MEDS: Aspirin 81 mg Enteric Coated Tablet PO SCH (08:51)
[2018-10-22] MEDS: HumaLOG 300 UNITS/3 ML VIAL SC SCH ×3 (08:51→16:31)
[2018-10-22] MEDS: Ezetimibe 10 MG TAB PO SCH (08:51)
[2018-10-22] MEDS: Clopidogrel Bisulfate 75 MG TAB PO SCH (08:52)
[2018-10-22] MEDS: Pantoprazole 40 MG VIAL IVP SCH (08:52)
[2018-10-22] MEDS: Cyanocobalamin (Vitamin B-12) 1,000 MCG TAB PO SCH (08:52)
[2018-10-22] MEDS: Ferrous Sulfate 325 MG TAB PO SCH (08:52)
[2018-10-22] MEDS: Magnesium Oxide 400 MG TAB PO SCH ×2 (08:52→22:02)
[2018-10-22] MEDS: Heparin 5,000 UNITS/ML VIAL SC SCH ×3 (09:11→22:02)
[2018-10-22] MEDS: HYDROcodone/Acetaminophen 10/325 mg Tablet PO PRN (09:16)
--- NOTE | 2018-10-22 09:26 | PDOC.FM ---
- Subjective Subjective: SUDEEP overnight. No complaints. - Objective Vital Signs & Weight: Vital Signs (12 hours) Temp Pulse Resp BP Pulse Ox 10/22/18 08:50 97.8 F 63 16 121/58 L 96 10/22/18 03:00 98.2 F 70 16 115/52 L 96 Weight Admit Weight 60.691 kg Weight 70.579 kg I&O: 10/21/18 10/22/18 10/23/18 06:59 06:59 06:59 Intake Total 420 3065 Output Total 400 780 Balance 20 2285 Result Diagrams: 10/22/18 05:02 10/22/18 05:02 <Stuart Lau - Last Filed: 10/22/18 09:22> - Objective Vital Signs & Weight: Vital Signs (12 hours) Temp Pulse Resp BP Pulse Ox 10/22/18 08:50 97.8 F 63 16 121/58 L 97 10/22/18 03:00 98.2 F 70 16 115/52 L 96 Weight Admit Weight 60.691 kg Weight 70.579 kg I&O: 10/21/18 10/22/18 10/23/18 06:59 06:59 06:59 Intake Total 420 3065 Output Total 400 780 Balance 20 2285 Result Diagrams: 10/22/18 05:02 10/22/18 05:02 <Susana Weiss - Last Filed: 10/22/18 10:55> Phys Exam - Physical Examination Constitutional: NAD HEENT: PERRLA, moist MMs, sclera anicteric Neck: no nodes, no JVD Respiratory: no wheezing, no rales, no rhonchi, clear to auscultation bilateral Cardiovascular: RRR, no significant murmur, no rub Gastrointestinal: soft, non-tender, no distention, positive bowel sounds Musculoskeletal: no edema, pulses present Neurological: non-focal, moves all 4 limbs Skin: no rash, normal turgor, cap refill <2 seconds <Stuart Lau - Last Filed: 10/22/18 09:22> Dx/Plan (1) ARF (acute renal failure) Status: Acute Qualifiers: Acute renal failure type: with acute tubular necrosis Qualified Code(s): N17.0 - Acute kidney failure with tubular necrosis (2) UTI (urinary tract infection) Status: Acute Qualifiers: Urinary tract infection type: acute cystitis (3) CAD (coronary artery disease) Code(s): I25.10 - ATHSCL HEART DISEASE OF [place] CORONARY ARTERY W/O ANG PCTRS Status: Chronic (4) CKD (chronic kidney disease), stage IV Code(s): N18.4 - CHRONIC KIDNEY DISEASE, STAGE 4 (SEVERE) Status: Chronic (5) DMII (diabetes mellitus, type 2) Status: Chronic Qualifiers: Diabetes mellitus oil heaterman insulin use: with oil heaterman use (6) PVD (peripheral vascular disease) Code(s): I73.9 - PERIPHERAL VASCULAR DISEASE, UNSPECIFIED Status: Chronic - Plan Plan: ARF on CKD stage IV -UO 780/24 hrs - awaiting nephro recs - no HD at this time, creatinine slightly improved and improved UO UTI - cont rocephin for 5 day course then DC Chronic anemia - stable Chronic neutropenia - [facility] 2/2 chronic disease per PBS IDDM2 - accuchecks achs - resume home meds, lantus daily, premeal before meals Leukopenia - stable - Likely related to pancytopenia from CKD CAD s/p CABG - home meds. PVD - home meds. dvt ppx: heparin dispo: Stable. slightly improved creatinine cont to monitor UOP and trend Bun/Cr , appreciate nephro recs. Hopefully UOP continues to improve and pt can be DC'd to home if UOP remains >750/24hr. <Stuart Lau - Last Filed: 10/22/18 09:22> (1) UTI (urinary tract infection) Status: Acute Qualifiers: Urinary tract infection type: acute cystitis (2) CAD (coronary artery disease) Code(s): I25.10 - ATHSCL HEART DISEASE OF [place] CORONARY ARTERY W/O ANG PCTRS Status: Chronic (3) DMII (diabetes mellitus, type 2) Status: Chronic Qualifiers: Diabetes mellitus oil heaterman insulin use: with oil heaterman use (4) CKD (chronic kidney disease), stage IV Code(s): N18.4 - CHRONIC KIDNEY DISEASE, STAGE 4 (SEVERE) Status: Chronic (5) ARF (acute renal failure) Status: Acute Qualifiers: Acute renal failure type: with acute tubular necrosis Qualified Code(s): N17.0 - Acute kidney failure with tubular necrosis (6) History of [place] (myocardial infarction) Code(s): I25.2 - OLD MYOCARDIAL INFARCTION Status: Chronic (7) PVD (peripheral vascular disease) Code(s): I73.9 - PERIPHERAL VASCULAR DISEASE, UNSPECIFIED Status: Chronic <Susana Weiss - Last Filed: 10/22/18 10:55> Attending Addendum - Attending Addendum Date/Time: 10/22/18 1054 I personally evaluated the patient and discussed the management with Dr. Lau. I agree with the History, Examination, Assessment and Plan documented above with any addition or exceptions noted below. The patient's creatinine is still elevated with minimal improvement. will coordinate plan of care with Dr. Tanner. Pt will finish antibiotics today for UTI. <Susana Weiss - Last Filed: 10/22/18 10:55>
[2018-10-22] MEDS: Ondansetron PF 4 MG/2 ML Vial IVP PRN (09:50)
[2018-10-22] MEDS: Rosuvastatin 10 MG TAB PO SCH (22:02)
[2018-10-22] MEDS: Insulin Glargine 10 UNITS in Pre-Filled Syringe 1 EACH SC SCH (22:03)
[2018-10-22] MEDS ORDERED: Tuberculin PPD 0.1 ML VIAL I-DERMAL SCH (23:59)
[2018-10-23 02:31] LABS: HIV (1/2) Antibody/Antigen Non-Reactive (NonReactive); HIV 1/2 INDEX 0.24 S/CO (<1.00); Hep C IgG Ab Non-Reactive (NonReactive); Hep C Index 0.03 S/CO (0-0.79)
[2018-10-23 06:04] LABS: #Eosinphils 0.1 thou/uL (0.0-0.7); #Lymphocytes 0.8 thou/uL (1.20-3.40); #Monocytes 0.6 thou/uL (0.11-0.59); #Neutrophils 5.5 thou/uL (1.40-6.50); %Basophils 0.6 % (0.0-1.0); %Eosinophils 0.8 % (0.0-10.0); %Lymphocytes 11.3 % (21.0-51.0); %Neutrophils 79.3 % (42.0-75.0); Hemoglobin 8.2 g/dL (12.0-16.0); Mean Corpuscular HGB CONC 31.6 g/dL (32.0-36.0); Mean Corpuscular Hemoglobin 29.6 pg (27.0-31.0); Mean Corpuscular Volume 93.6 fL (78.0-98.0); Mean Platelet Volume 8.4 fL (7.4-10.4); Platelet Count 209 thou/uL (130-400); RBC Distribution Width 13.4 % (11.5-14.5); Red Blood Cell (RBC) Count 2.75 mill/uL (4.20-5.40); White Blood Cell (WBC) Count 6.9 thou/uL (4.8-10.8)
[2018-10-23 06:19] LABS: Anion Gap 18 mmol/L (10-20); BUN (Urea Nitrogen) 111 mg/dL (9.8-20.1); Calc. Creatinine Clearance 5 mL/min (70-130); Calcium 8.4 mg/dL (7.8-10.44); Carbon Dioxide 20 mmol/L (23-31); Chloride 104 mmol/L (98-107); Estimated GFR-MDRD 3; Glucose 169 mg/dL (83-110); Potassium 3.2 mmol/L (3.5-5.1); Sodium 139 mmol/L (136-145)
[2018-10-23] MEDS: Clopidogrel Bisulfate 75 MG TAB PO SCH (10:05)
[2018-10-23] MEDS: Aspirin 81 mg Enteric Coated Tablet PO SCH (10:05)
[2018-10-23] MEDS: HumaLOG 300 UNITS/3 ML VIAL SC SCH ×4 (10:05→16:30)
[2018-10-23] MEDS: busPIRone HCl 10 MG TAB PO SCH ×2 (10:05→21:09)
[2018-10-23] MEDS: Ascorbic Acid 500 mg Chewable Tablet PO SCH ×3 (10:05→22:36)
[2018-10-23] MEDS: Heparin 5,000 UNITS/ML VIAL SC SCH ×3 (10:06→21:09)
[2018-10-23] MEDS: Cyanocobalamin (Vitamin B-12) 1,000 MCG TAB PO SCH (10:06)
[2018-10-23] MEDS: Magnesium Oxide 400 MG TAB PO SCH ×2 (10:06→21:09)
[2018-10-23] MEDS: Ezetimibe 10 MG TAB PO SCH ×2 (10:06→10:15)
[2018-10-23] MEDS: Ferrous Sulfate 325 MG TAB PO SCH (10:06)
[2018-10-23] MEDS: Pantoprazole 40 MG VIAL IVP SCH (10:06)
--- NOTE | 2018-10-23 10:36 | PDOC.FM ---
- Subjective Subjective: SUDEEP overnight. Pt denies cp, sob, nvdc. Reports fatigue. - Objective Vital Signs & Weight: Vital Signs (12 hours) Temp Pulse Resp BP BP Pulse Ox 10/23/18 07:23 98.2 F 67 16 106/52 L 93 L 10/23/18 04:00 98.7 F 70 18 115/62 94 L Weight Admit Weight 60.691 kg Weight 70.307 kg I&O: 10/22/18 10/23/18 10/24/18 06:59 06:59 06:59 Intake Total 3065 880 Output Total 780 700 Balance 2285 180 Result Diagrams: 10/23/18 01:41 10/23/18 01:41 <Stuart Lau - Last Filed: 10/23/18 10:33> - Objective Vital Signs & Weight: Vital Signs (12 hours) Temp Pulse Resp BP Pulse Ox 10/23/18 15:28 98.1 F 66 18 132/63 96 10/23/18 11:01 98 F 64 18 109/51 L 93 L 10/23/18 07:23 98.2 F 67 16 106/52 L 93 L Weight Admit Weight 60.691 kg Weight 70.307 kg I&O: 10/22/18 10/23/18 10/24/18 06:59 06:59 06:59 Intake Total 3065 880 Output Total 780 700 Balance 2285 180 Result Diagrams: 10/23/18 01:41 10/23/18 01:41 <Susana Weiss - Last Filed: 10/23/18 16:47> Phys Exam - Physical Examination Constitutional: NAD HEENT: PERRLA, sclera anicteric Neck: no nodes, no JVD Respiratory: no wheezing, no rales, no rhonchi, clear to auscultation bilateral Cardiovascular: RRR, no significant murmur, no rub Gastrointestinal: soft, non-tender, no distention, positive bowel sounds Musculoskeletal: no edema, pulses present Neurological: non-focal, moves all 4 limbs Psychiatric: normal affect, A&O x 3 Skin: no rash, cap refill <2 seconds <Stuart Lau - Last Filed: 10/23/18 10:33> Dx/Plan (1) ARF (acute renal failure) Status: Acute Qualifiers: Acute renal failure type: with acute tubular necrosis Qualified Code(s): N17.0 - Acute kidney failure with tubular necrosis (2) UTI (urinary tract infection) Status: Acute Qualifiers: Urinary tract infection type: acute cystitis (3) CAD (coronary artery disease) Code(s): I25.10 - ATHSCL HEART DISEASE OF [place] CORONARY ARTERY W/O ANG PCTRS Status: Chronic (4) CKD (chronic kidney disease), stage IV Code(s): N18.4 - CHRONIC KIDNEY DISEASE, STAGE 4 (SEVERE) Status: Chronic (5) DMII (diabetes mellitus, type 2) Status: Chronic Qualifiers: Diabetes mellitus long term care administrator insulin use: with long term care administrator use (6) PVD (peripheral vascular disease) Code(s): I73.9 - PERIPHERAL VASCULAR DISEASE, UNSPECIFIED Status: Chronic - Plan Plan: ARF on CKD stage IV - plan for HD - awaiting vein mapping and temp HD access, to be seen by gen surg today and plan for access tomorrow - fatigue and weakness, likley 2/2 uremia, will dialyze - appreciate nephro recs UTI - DC rocephin, resolved. Chronic anemia - stable Chronic neutropenia - likley 2/2 chronic disease per PBS IDDM2 - accuchecks achs - resume home meds, lantus daily, premeal before meals Leukopenia - stable - Likely related to pancytopenia from CKD CAD s/p CABG - home meds. PVD - home meds. Dispo: Pt renal fxn remains poor despite adequate IVF resuscitation and time. Will plan for HD likely tomorrow. <Stuart Lau - Last Filed: 10/23/18 10:33> (1) UTI (urinary tract infection) Status: Acute Qualifiers: Urinary tract infection type: acute cystitis (2) CAD (coronary artery disease) Code(s): I25.10 - ATHSCL HEART DISEASE OF [place] CORONARY ARTERY W/O ANG PCTRS Status: Chronic (3) DMII (diabetes mellitus, type 2) Status: Chronic Qualifiers: Diabetes mellitus shelter insulin use: with shelter use (4) CKD (chronic kidney disease), stage IV Code(s): N18.4 - CHRONIC KIDNEY DISEASE, STAGE 4 (SEVERE) Status: Chronic (5) ARF (acute renal failure) Status: Acute Qualifiers: Acute renal failure type: with acute tubular necrosis Qualified Code(s): N17.0 - Acute kidney failure with tubular necrosis (6) History of [place] (myocardial infarction) Code(s): I25.2 - OLD MYOCARDIAL INFARCTION Status: Chronic (7) PVD (peripheral vascular disease) Code(s): I73.9 - PERIPHERAL VASCULAR DISEASE, UNSPECIFIED Status: Chronic <Susana Weiss - Last Filed: 10/23/18 16:47> Attending Addendum - Attending Addendum Date/Time: 10/23/18 1119 I personally evaluated the patient and discussed the management with Dr. Lau. I agree with the History, Examination, Assessment and Plan documented above with any addition or exceptions noted below. Vein mapping is being planned to initiate dialysis. Pt will complete antibiotics. <Susana Weiss - Last Filed: 10/23/18 16:47>
--- NOTE | 2018-10-23 10:50 | ULT ---
VENOUS DUPLEX SONOGRAM BILATERAL UPPER EXTREMITY FOR VEIN MAPPING: HISTORY: Renal disease. Need for hemodialysis access. FINDINGS: Good color and spectral Doppler flow within each internal jugular and subclavian vein and each axilla ry and brachial vein. Measurements are as follows: RIGHT: Brachial artery 3 mm Radial artery 2 mm Ulnar artery 2 mm Cephalic Vein: Proximal humerus 2 mm Mid humerus 2 mm Distal humerus 1 mm Antecubital fossa 1 mm Proximal forearm 5 mm Mid forearm 1 mm Distal forearm 2 mm Basilic Vein: Proximal humerus 5 mm Mid humerus 5 mm Distal humerus 6 mm Antecubital fossa 3 mm Proximal forearm 2 mm Mid forearm 2 mm Distal forearm 2 mm LEFT: Brachial artery 3 mm Radial artery 2 mm Ulnar artery 1 mm Cephalic Vein: Proximal humerus 4 mm Mid humerus 1 mm Distal humerus 1 mm Antecubital fossa 3 mm Proximal forearm 2 mm Mid forearm 2 mm Distal forearm 3 mm Basilic Vein: Cephalic Vein: Proximal humerus 3 mm Mid humerus 2 mm Distal humerus 3 mm Antecubital fossa 3 mm Proximal forearm 2 mm Mid forearm 1 mm Distal forearm 2 mm IMPRESSION: Patent vascular structures within each upper extremities, with measurements as detailed above. POS: TPC
[2018-10-23] MEDS: Ondansetron PF 4 MG/2 ML Vial IVP PRN (10:53)
[2018-10-23] MEDS ORDERED: CEFAZOLIN 2 GM/50 ML BAG IV SCH (14:30)
[2018-10-23] MEDS: Rosuvastatin 10 MG TAB PO SCH (21:09)
[2018-10-23] MEDS: Insulin Glargine 10 UNITS in Pre-Filled Syringe 1 EACH SC SCH (22:36)
--- NOTE | 2018-10-23 22:40 | HP ---
HISTORY OF PRESENT ILLNESS: Samara Smyth is a 78-year-old female with end-stage renal disease. She has had chronic kidney disease culminating to the point that she needs dialysis. The patient has left subclavian vein pacemaker. Echocardiogram 10/19/2018 revealed ejection fraction 50% to 55%, severe mitral regurgitation, and severe tricuspid regurgitation. ALLERGIES: BACTRIM, DOPAMINE, SULFA. SOCIAL HISTORY: Tobacco, none. Alcohol, none. MEDICATIONS: Vitamin C, aspirin, buspirone, vitamin D3, Plavix 75 mg a day, vitamin B12, Procrit, Zetia, iron sulfate, Protonix 40 mg a day, iron daily, magnesium oxide b.i.d., Crestor at bedtime, hydrocodone p.r.n., insulin 10 units at bedtime, sliding scale insulin with meals. PAST SURGICAL HISTORY: She is up to date on colonoscopies; coronary bypass grafting in April of 2018; total abdominal hysterectomy; left salpingo-oophorectomy; pacemaker in left subclavian, followed by Dr. Whitaker. PAST MEDICAL HISTORY: Hypertension; diabetes; coronary artery disease, stable, asymptomatic currently. PAST SURGICAL HISTORY: She has had a left hip ORIF. There is a record of having a left CEA. PHYSICAL EXAMINATION: VITAL SIGNS: Height 5 feet 7 inches, 155 pounds, BMI 24, temperature 98 degrees, blood pressure 109/51. HEAD, EARS, EYES, NOSE, AND THROAT: Unremarkable. LUNGS: Clear to auscultation. HEART: With murmur. Pacemaker in left chest. ABDOMEN: Soft, nontender. EXTREMITIES: Unremarkable. Palpable radial pulses. IV in left hand. LABORATORY DATA: White count 6, hemoglobin 8.2. Sodium 139, potassium 3.2, BUN 111, creatinine 10.91, GFR 3. ASSESSMENT AND PLAN: 1. End-stage renal disease. Plan placement of a hemodialysis catheter, cuff-tunneled, central line port for poor IV access and right arm fistula. Ultrasound vein mapping obtained, right reveals 2 mm, 2 mm, 1 mm, 1 mm; proximal forearm 5 mm; basilic vein 5 mm, 5 mm and 6 mm; 3 mm AC fossa, 2 mm, 2 mm, and 2 mm. 2. Diabetes. 3. Hypertension. 4. Coronary artery disease, stable. 5. . Job ID: [id number]
[2018-10-24 06:21] LABS: #Eosinphils 0.1 thou/uL (0.0-0.7); #Lymphocytes 1.1 thou/uL (1.20-3.40); #Monocytes 0.8 thou/uL (0.11-0.59); #Neutrophils 4.7 thou/uL (1.40-6.50); %Basophils 0.7 % (0.0-1.0); %Eosinophils 1.1 % (0.0-10.0); %Lymphocytes 16.9 % (21.0-51.0); %Monocytes 11.6 % (0.0-10.0); %Neutrophils 69.6 % (42.0-75.0); Hemoglobin 7.7 g/dL (12.0-16.0); Mean Corpuscular HGB CONC 31.5 g/dL (32.0-36.0); Mean Corpuscular Hemoglobin 28.8 pg (27.0-31.0); Mean Corpuscular Volume 91.4 fL (78.0-98.0); Mean Platelet Volume 7.9 fL (7.4-10.4); Platelet Count 208 thou/uL (130-400); RBC Distribution Width 13.4 % (11.5-14.5); Red Blood Cell (RBC) Count 2.69 mill/uL (4.20-5.40); White Blood Cell (WBC) Count 6.7 thou/uL (4.8-10.8)
[2018-10-24 06:23] LABS: Anion Gap 23 mmol/L (10-20); BUN (Urea Nitrogen) 108 mg/dL (9.8-20.1); Calc. Creatinine Clearance 5 mL/min (70-130); Calcium 8.5 mg/dL (7.8-10.44); Carbon Dioxide 14 mmol/L (23-31); Chloride 105 mmol/L (98-107); Estimated GFR-MDRD 3; Glucose 132 mg/dL (83-110); Potassium 3.2 mmol/L (3.5-5.1); Sodium 139 mmol/L (136-145)
[2018-10-24] MEDS: Aspirin 81 mg Enteric Coated Tablet PO SCH (08:25)
[2018-10-24] MEDS: Heparin 5,000 UNITS/ML VIAL SC SCH ×3 (08:25→21:24)
[2018-10-24] MEDS: Clopidogrel Bisulfate 75 MG TAB PO SCH (08:25)
[2018-10-24] MEDS: HumaLOG 300 UNITS/3 ML VIAL SC SCH ×3 (08:25→16:29)
[2018-10-24] MEDS: Cyanocobalamin (Vitamin B-12) 1,000 MCG TAB PO SCH (08:25)
[2018-10-24] MEDS: Ascorbic Acid 500 mg Chewable Tablet PO SCH ×3 (08:25→21:38)
[2018-10-24] MEDS: busPIRone HCl 10 MG TAB PO SCH ×3 (08:29→21:39)
[2018-10-24] MEDS: Magnesium Oxide 400 MG TAB PO SCH ×2 (08:29→21:23)
[2018-10-24] MEDS: Ferrous Sulfate 325 MG TAB PO SCH (08:29)
[2018-10-24] MEDS: Ezetimibe 10 MG TAB PO SCH (08:29)
[2018-10-24] MEDS: Pantoprazole 40 MG VIAL IVP SCH (08:31)
--- NOTE | 2018-10-24 09:10 | PDOC.FM ---
- Subjective Subjective: SUDEEP overnight. Pt reports fatigue and GALDAMEZ that has been persistent. - Objective Vital Signs & Weight: Vital Signs (12 hours) Temp Pulse Resp BP Pulse Ox 10/24/18 08:00 99.1 F 63 16 103/49 L 92 L 10/24/18 03:01 99.5 F 85 17 111/68 94 L Weight Admit Weight 60.691 kg Weight 67.132 kg I&O: 10/23/18 10/24/18 10/25/18 06:59 06:59 06:59 Intake Total 880 770 Output Total 700 500 Balance 180 270 Result Diagrams: 10/24/18 05:55 10/24/18 05:55 <Stuart Lau - Last Filed: 10/24/18 09:06> - Objective Vital Signs & Weight: Vital Signs (12 hours) Temp Pulse Resp BP Pulse Ox 10/24/18 08:00 99.1 F 63 16 103/49 L 92 L 10/24/18 03:01 99.5 F 85 17 111/68 94 L Weight Admit Weight 60.691 kg Weight 67.132 kg I&O: 10/23/18 10/24/18 10/25/18 06:59 06:59 06:59 Intake Total 880 770 Output Total 700 500 Balance 180 270 Result Diagrams: 10/24/18 05:55 10/24/18 05:55 <Susana Weiss - Last Filed: 10/24/18 14:38> Phys Exam - Physical Examination Constitutional: NAD HEENT: PERRLA, moist MMs, sclera anicteric Neck: no nodes, no JVD Respiratory: no wheezing, no rales, no rhonchi, clear to auscultation bilateral Cardiovascular: RRR, no significant murmur, no rub Gastrointestinal: soft, non-tender, no distention, positive bowel sounds Musculoskeletal: no edema, pulses present Neurological: non-focal, moves all 4 limbs Skin: no rash, cap refill <2 seconds <Stuart Lau - Last Filed: 10/24/18 09:06> Dx/Plan (1) ARF (acute renal failure) Status: Acute Qualifiers: Acute renal failure type: with acute tubular necrosis Qualified Code(s): N17.0 - Acute kidney failure with tubular necrosis (2) UTI (urinary tract infection) Status: Acute Qualifiers: Urinary tract infection type: acute cystitis (3) CAD (coronary artery disease) Code(s): I25.10 - ATHSCL HEART DISEASE OF [place] CORONARY ARTERY W/O ANG PCTRS Status: Chronic (4) CKD (chronic kidney disease), stage IV Code(s): N18.4 - CHRONIC KIDNEY DISEASE, STAGE 4 (SEVERE) Status: Chronic (5) DMII (diabetes mellitus, type 2) Status: Chronic Qualifiers: Diabetes mellitus nurse sane insulin use: with half-way use (6) PVD (peripheral vascular disease) Code(s): I73.9 - PERIPHERAL VASCULAR DISEASE, UNSPECIFIED Status: Chronic - Plan Plan: ARF on CKD stage IV - tunnelled cath placement today and plan for HD by Dr Ciro SALDANA - resolved. Chronic anemia - stable Chronic neutropenia - will 2/2 chronic disease per PBS IDDM2 - accuchecks achs - resume home meds, lantus daily, premeal before meals Leukopenia - stable - Likely related to pancytopenia from CKD CAD s/p CABG - home meds. PVD - home meds. Dispo: Dialysis cath placement today and AV fistula, dialysis today after cath placement. <Stuart Lau - Last Filed: 10/24/18 09:06> (1) UTI (urinary tract infection) Status: Acute Qualifiers: Urinary tract infection type: acute cystitis (2) CAD (coronary artery disease) Code(s): I25.10 - ATHSCL HEART DISEASE OF [place] CORONARY ARTERY W/O ANG PCTRS Status: Chronic (3) DMII (diabetes mellitus, type 2) Status: Chronic Qualifiers: Diabetes mellitus nurse sane insulin use: with half-way use (4) CKD (chronic kidney disease), stage IV Code(s): N18.4 - CHRONIC KIDNEY DISEASE, STAGE 4 (SEVERE) Status: Chronic (5) ARF (acute renal failure) Status: Acute Qualifiers: Acute renal failure type: with acute tubular necrosis Qualified Code(s): N17.0 - Acute kidney failure with tubular necrosis (6) History of [place] (myocardial infarction) Code(s): I25.2 - OLD MYOCARDIAL INFARCTION Status: Chronic (7) PVD (peripheral vascular disease) Code(s): I73.9 - PERIPHERAL VASCULAR DISEASE, UNSPECIFIED Status: Chronic <Susana Weiss - Last Filed: 10/24/18 14:38> Attending Addendum - Attending Addendum Date/Time: 10/24/18 [id number] I personally evaluated the patient and discussed the management with Dr. Lau. I agree with the History, Examination, Assessment and Plan documented above with any addition or exceptions noted below. Pt is getting dialysis catheter placed today and will begin dialysis. <Susana Weiss - Last Filed: 10/24/18 14:38>
[2018-10-24] MEDS ORDERED: CEFAZOLIN 2 GM/50 ML BAG ONE (11:24)
[2018-10-24] MEDS ORDERED: Fentanyl 100 MCG/2 ML VIAL ONE ×3 (11:46→13:54)
[2018-10-24] MEDS ORDERED: Sodium Chloride 0.9% 10 ML ONE ×2 (12:13→12:18)
[2018-10-24] MEDS ORDERED: Bupivacaine HCl 0.5%/Epinephrine 1:200,000/PF 30 ml Vial ONE (12:13)
[2018-10-24] MEDS ORDERED: Heparin 10,000 UNITS/1 ML VIAL ONE (12:13)
[2018-10-24] MEDS ORDERED: Lidocaine 2% PF 5 ML VIAL ONE (12:13)
[2018-10-24] MEDS ORDERED: Heparin 5,000 UNITS/ML VIAL ONE (12:13)
[2018-10-24] MEDS ORDERED: PROPOFOL 200 MG/20 ML VIAL ONE (13:22)
[2018-10-24] MEDS ORDERED: PHENYLEPHRINE-NS 100 MCG/ML 10 ML SYRINGE ONE (13:22)
[2018-10-24] MEDS ORDERED: traMADol HCl 50 MG TAB PO PRN (13:38)
[2018-10-24] MEDS ORDERED: Promethazine HCl 25 MG/ML VIAL IM PRN (13:43)
[2018-10-24] MEDS ORDERED: Meperidine HCl/PF 25 MG/ML VIAL SLOW IVP PRN (13:43)
[2018-10-24] MEDS ORDERED: Promethazine HCl 25 MG/ML VIAL SLOW IVP PRN (13:43)
[2018-10-24] MEDS ORDERED: PACU-Morphine 4MG/ML VIAL SLOW IVP PRN (13:43)
[2018-10-24] MEDS ORDERED: Ondansetron HCl/PF 4 MG/2 ML Vial IVP PRN (13:43)
[2018-10-24] MEDS: traMADol HCl 50 MG TAB PO PRN (14:37)
--- NOTE | 2018-10-24 14:49 | RAD ---
FRONTAL VIEW CHEST: INDICATIONS: Central line placement. COMPARISON: 06/10/2017 FINDINGS: There is a tunneled right vascular catheter with the tip overlying the SVC region. A left IJ cathete r is present with the tip partially obscured by overlying electronic leads from a left-sided cardiac pacing device. There is generalized interstitial prominence, favoring edema. Mild bibasilar densiti es, left greater than right, favor pleural fluid, with adjacent atelectasis and/or pneumonia. The ch est is otherwise similar. IMPRESSION: 1. Central venous catheter placement, as above, without a discrete pneumothorax. 2. Findings favor decompensated congestive heart failure. Recommend continued followup. POS: MAXIMINO
[2018-10-24] MEDS: Acetaminophen 500 MG TAB PO PRN (15:29)
[2018-10-24] MEDS: Ondansetron ODT 4 MG TAB PO PRN (16:29)
[2018-10-24 17:35] LABS: HBSAB Concentration 1.07 mIU/mL; HBSAg Index 0.17 S/CO (0-0.99); Hep B Core Total Ab Non-Reactive (NonReactive); Hep B Core Total Index 0.06 S/CO (0-0.79); Hep B Surf AB Non-Reactive (NonReactive); Hep B Surf Ag Non-Reactive S/CO (NonReactive); Hep C IgG Ab Non-Reactive (NonReactive); Hep C Index 0.03 S/CO (0-0.79)
--- NOTE | 2018-10-24 18:17 | PRG ---
DATE OF SERVICE: 10/24/2018 SUBJECTIVE: Samara Smyth had a hemodialysis catheter and central line placed today. She has a pacemaker. She has had a previous coronary artery bypass graft by Dr. Elias. She is followed by Dr. Whitaker in Cardiology. The patient has nonpalpable left brachial radial pulse, left subclavian vein pacemaker, and a stent in the right subclavian artery. I can palpate a right brachial pulse, but cannot palpate a radial ulnar pulse. The patient has severe arteriosclerotic occlusive disease. She has stents in her lower extremities for PAD. I can palpate a right popliteal artery, but no pedal pulses on the right. I cannot palpate a left popliteal pulse and I cannot palpate pedal pulses. I have discussed with Dr. 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 As stated above, she has had a stent placed in the right subclavian artery with distal occlusive disease. The patient is not a candidate for an arterial venous fistula or prosthetic graft in her arm due to her severe arteriosclerotic disease. At this point, she would be a good candidate for peritoneal dialysis. She denies experiencing intestinal angina, although has had a visceral artery stent placed by Dr. Whitaker in the past. The patient has not lost weight. She does not have abdominal pain. There is no evidence of abdominal hernia on exam. I think she would be a good candidate for peritoneal dialysis to avoid long-term sequelae and complication of the hemodialysis catheter. I discussed with Dr. Sinan Tanner. He will discuss with the patient, and if appropriate, could consider laparoscopic peritoneal dialysis catheter placed in the future. Placement of versus long-term dependence on hemodialysis catheter, which has the added risk of bacteremia, malfunction of the catheters, occlusive disease of the inserted veins. Job ID: [id number]
--- NOTE | 2018-10-24 20:33 | OP ---
DATE OF PROCEDURE: 10/24/2018 PREOPERATIVE DIAGNOSES: End-stage renal disease, in need of dialysis access, pacemaker status; vasculopath with superior mesenteric artery stent; right subclavian vein stent; severe peripheral artery disease without palpable pulses, left arm; stents, lower extremities without palpable pedal pulses; palpable right popliteal pulse; nonpalpable left popliteal pulse; nonpalpable pedal pulses; hypertension; diabetes. POSTOPERATIVE DIAGNOSES: End-stage renal disease, in need of dialysis access, pacemaker status; vasculopath with superior mesenteric artery stent; right subclavian vein stent; severe peripheral artery disease without palpable pulses, left arm; stents, lower extremities without palpable pedal pulses; palpable right popliteal pulse; nonpalpable left popliteal pulse; nonpalpable pedal pulses; hypertension; diabetes. PROCEDURES PERFORMED: Right IJ cuffed-tunneled dialysis catheter, left IJ central line, ultrasound fluoroscopy used. ANESTHESIA: Intravenous sedation, local of 0.5% Marcaine with epinephrine 30 mL with 2% Xylocaine 10 mL. DESCRIPTION OF PROCEDURE: The patient was taken to the operating room where under intravenous sedation, neck and chest were prepped with ChloraPrep and draped in routine fashion. A local anesthetic was infiltrated into the skin and subcutaneous tissue about the operative site. Using ultrasound guidance, bilateral internal jugular veins were cannulated with a trocar catheter and J-wire threaded. Skin was incised and enlarged sharply. A stab incision made over the right chest. Using a tunneling device, pre-curved [employer] cuffed-tunneled hemodialysis catheter was tunneled between the two incisions, placed in the fabric cuff beneath the skin access site over the right chest. Catheter was secured with 2 sutures of 3-0 nylon. Biopatch sterile dressing applied. Smaller and medium size dilators were placed over the J-wire in the internal jugular vein right and removed. Dilator and Peel-Away sheath placed with J-wire into the superior vena cava, and dilator and J-wire were removed. Catheter was placed through the Peel-Away sheath. Peel-Away sheath was removed. Platysma approximated with 4-0 Monocryl, skin with subdermal 4-0 Monocryl, and [place] glue applied. Each port aspirated off blood, flushed with saline solution, then heparinized saline solution 1000 units of heparin per mL indicating volume of the port. Seldinger technique was used to place a left internal jugular vein triple-lumen catheter, securing with 3-0 nylon sutures and Biopatch sterile dressing applied. J-wire being removed. The patient tolerated the procedure well. Job ID: [id number]
[2018-10-24] MEDS: Rosuvastatin 10 MG TAB PO SCH (21:22)
[2018-10-24] MEDS: Insulin Glargine 10 UNITS in Pre-Filled Syringe 1 EACH SC SCH (21:23)
[2018-10-24] MEDS ORDERED: READ PPD TEST SITE PO SCH (23:59)
[2018-10-25] MEDS ORDERED: Lactated Ringer's 500 ML IV SCH ×3 (00:30→05:45)
--- NOTE | 2018-10-25 06:03 | PDOC.FM ---
- Subjective Subjective: Patient reports feeling better this AM. Does endorse some orthostasis and nausea , especially with her pain medicines. Is a little sore as well after having her IJ placed yesterday. Patient did have persistent hypotension overnight and had to receive 2 500mL fluid boluses but remained HD stable even with her BP in the 80s systolic. - Objective MAR Reviewed: Yes Vital Signs & Weight: Vital Signs (12 hours) Temp Pulse Resp BP Pulse Ox 10/25/18 05:43 61 16 80/38 L 10/25/18 04:41 63 16 88/44 L 10/25/18 03:04 97.7 F 69 16 82/43 L 91 L 10/25/18 02:19 65 16 103/47 L 10/25/18 01:09 62 16 83/44 L 10/25/18 00:00 97.6 F 66 18 81/41 L 92 L 10/24/18 21:38 96 10/24/18 21:18 97.8 F 69 16 90/50 L 96 10/24/18 21:16 89/50 L Weight Admit Weight 60.691 kg Weight 68.402 kg I&O: 10/23/18 10/24/18 10/25/18 06:59 06:59 06:59 Intake Total 708 127 2354 Output Total 700 500 600 Balance 180 270 970 Result Diagrams: 10/25/18 04:45 10/25/18 04:45 Phys Exam - Physical Examination Constitutional: NAD HEENT: sclera anicteric Neck: supple, full ROM Respiratory: no wheezing, no rales, no rhonchi, clear to auscultation bilateral Cardiovascular: RRR 4/6 blowing systolic murmur heard best at R sternal border Gastrointestinal: soft, non-tender, no distention, positive bowel sounds Musculoskeletal: no edema Neurological: non-focal, moves all 4 limbs Psychiatric: normal affect, A&O x 3 Skin: no rash, normal turgor Dx/Plan (1) UTI (urinary tract infection) Status: Resolved Qualifiers: Urinary tract infection type: acute cystitis (2) CAD (coronary artery disease) Code(s): I25.10 - ATHSCL HEART DISEASE OF [place] CORONARY ARTERY W/O ANG PCTRS Status: Chronic (3) DMII (diabetes mellitus, type 2) Status: Chronic Qualifiers: Diabetes mellitus alf insulin use: with cdl driver use (4) CKD (chronic kidney disease), stage IV Code(s): N18.4 - CHRONIC KIDNEY DISEASE, STAGE 4 (SEVERE) Status: Chronic (5) ARF (acute renal failure) Status: Acute Qualifiers: Acute renal failure type: with acute tubular necrosis Qualified Code(s): N17.0 - Acute kidney failure with tubular necrosis (6) History of [place] (myocardial infarction) Code(s): I25.2 - OLD MYOCARDIAL INFARCTION Status: Chronic (7) PVD (peripheral vascular disease) Code(s): I73.9 - PERIPHERAL VASCULAR DISEASE, UNSPECIFIED Status: Chronic - Plan Plan: ARF on CKD stage IV - BUN/Cr slightly improved at 56/6.33 today. - Patient was determined to not be a suitable candidate for an AV fistula or a bypass graft given her severe PVD per general surgery. They recommended peritoneal dialysis instead and discussed this with Dr. Tanner. - Will defer to Dr. Tanner to speak with patient about best option going forward as he has been following the patient since she was admitted. - Will continue to monitor renal function & urine output daily with QD bloodwork and strict I&Os. IDDM2 - Will continue accuchecks achs - Will continue home meds, lantus daily, premeal before meals Symptomatic anemia superimposed on chronic anemia from CKD - Hgb down to 6.9 this AM from 7.7 yesterday. Patient has been persistently orthostatic and hypotensive as well as a little drowsy but arousable - Will continue to monitor w/ QD bloodwork & will plan to give 1 unit of PRBCs tomorrow with HD since we could not do this in time today per recs of Dr. Tanner , patient's java enterprise architect. - Will order an FOBT to check for a possible GI bleed and continue IV famotidine. - Will continue EPO and Ferrous sulfate with vitamin C as well. Chronic Leukopenia - Likely related to pancytopenia from CKD. - Stable. CAD s/p CABG - Aware, will continue home meds. PVD - Aware, will resume home meds. UTI - Resolved. Patient is s/p Rocephin x 6 days. Dispo: Will defer to Dr. Tanner, patient's java enterprise architect for plans for HD going forward as patient is not a candidate for an AV fistula or graft 2/2 severe PVD per general surgery.
[2018-10-25] MEDS: Acetaminophen 500 MG TAB PO PRN (06:11)
[2018-10-25 06:32] LABS: #Basophils 0.1 thou/uL (0.0-0.2); #Eosinphils 0.1 thou/uL (0.0-0.7); #Lymphocytes 1.4 thou/uL (1.20-3.40); #Monocytes 0.7 thou/uL (0.11-0.59); #Neutrophils 3.7 thou/uL (1.40-6.50); %Basophils 1.3 % (0.0-1.0); %Eosinophils 1.5 % (0.0-10.0); %Lymphocytes 22.8 % (21.0-51.0); %Monocytes 11.5 % (0.0-10.0); %Neutrophils 62.9 % (42.0-75.0); Hemoglobin 6.9 g/dL (12.0-16.0); Mean Corpuscular HGB CONC 31.3 g/dL (32.0-36.0); Mean Corpuscular Hemoglobin 29.7 pg (27.0-31.0); Mean Corpuscular Volume 94.8 fL (78.0-98.0); Mean Platelet Volume 7.6 fL (7.4-10.4); Platelet Count 220 thou/uL (130-400); RBC Distribution Width 13.7 % (11.5-14.5); Red Blood Cell (RBC) Count 2.32 mill/uL (4.20-5.40); White Blood Cell (WBC) Count 5.9 thou/uL (4.8-10.8)
[2018-10-25 06:45] LABS: Anion Gap 22 mmol/L (10-20); BUN (Urea Nitrogen) 105 mg/dL (9.8-20.1); Calc. Creatinine Clearance 5 mL/min (70-130); Calcium 8.4 mg/dL (7.8-10.44); Carbon Dioxide 15 mmol/L (23-31); Chloride 105 mmol/L (98-107); Estimated GFR-MDRD 3; Glucose 114 mg/dL (83-110); Potassium 3.4 mmol/L (3.5-5.1); Sodium 139 mmol/L (136-145)
[2018-10-25 11:23] LABS: Hemoglobin 7.1 g/dL (12.0-16.0); Mean Corpuscular HGB CONC 31.8 g/dL (32.0-36.0); Mean Corpuscular Hemoglobin 30.4 pg (27.0-31.0); Mean Corpuscular Volume 95.6 fL (78.0-98.0); Mean Platelet Volume 7.3 fL (7.4-10.4); Platelet Count 220 thou/uL (130-400); RBC Distribution Width 13.7 % (11.5-14.5); Red Blood Cell (RBC) Count 2.34 mill/uL (4.20-5.40); White Blood Cell (WBC) Count 6.5 thou/uL (4.8-10.8)
[2018-10-25] MEDS: Ascorbic Acid 500 mg Chewable Tablet PO SCH ×2 (13:16→20:44)
[2018-10-25] MEDS: HumaLOG 300 UNITS/3 ML VIAL SC SCH ×2 (13:16→17:47)
[2018-10-25] MEDS: Aspirin 81 mg Enteric Coated Tablet PO SCH (13:17)
[2018-10-25] MEDS: Magnesium Oxide 400 MG TAB PO SCH ×2 (13:17→20:44)
[2018-10-25] MEDS: Cyanocobalamin (Vitamin B-12) 1,000 MCG TAB PO SCH (13:17)
[2018-10-25] MEDS: Ferrous Sulfate 325 MG TAB PO SCH (13:17)
[2018-10-25] MEDS: Clopidogrel Bisulfate 75 MG TAB PO SCH (13:17)
[2018-10-25] MEDS: Heparin 5,000 UNITS/ML VIAL SC SCH ×3 (13:18→20:44)
[2018-10-25] MEDS: Pantoprazole 40 MG VIAL IVP SCH (13:19)
[2018-10-25] MEDS: Polyethylene Glycol 3350 17 GM Packet PO SCH (13:19)
[2018-10-25] MEDS: busPIRone HCl 10 MG TAB PO SCH ×2 (13:25→20:44)
[2018-10-25] MEDS: Ezetimibe 10 MG TAB PO SCH (13:59)
[2018-10-25] MEDS: Ondansetron PF 4 MG/2 ML Vial IVP PRN (15:00)
[2018-10-25] MEDS: Rosuvastatin 10 MG TAB PO SCH (20:44)
[2018-10-25] MEDS: Insulin Glargine 10 UNITS in Pre-Filled Syringe 1 EACH SC SCH (20:45)
[2018-10-25] MEDS ORDERED: READ PPD TEST SITE PO SCH (23:59)
[2018-10-26] MEDS: Ondansetron PF 4 MG/2 ML Vial IVP PRN (00:04)
[2018-10-26 06:06] LABS: #Basophils 0.1 thou/uL (0.0-0.2); #Eosinphils 0.1 thou/uL (0.0-0.7); #Neutrophils 3.7 thou/uL (1.40-6.50); %Basophils 1.2 % (0.0-1.0); %Eosinophils 1.2 % (0.0-10.0); %Lymphocytes 28.9 % (21.0-51.0); %Monocytes 14.5 % (0.0-10.0); %Neutrophils 54.2 % (42.0-75.0); Mean Corpuscular HGB CONC 31.4 g/dL (32.0-36.0); Mean Corpuscular Hemoglobin 29.7 pg (27.0-31.0); Mean Corpuscular Volume 94.6 fL (78.0-98.0); Mean Platelet Volume 7.5 fL (7.4-10.4); Platelet Count 244 thou/uL (130-400); RBC Distribution Width 13.9 % (11.5-14.5); Red Blood Cell (RBC) Count 2.35 mill/uL (4.20-5.40); White Blood Cell (WBC) Count 6.7 thou/uL (4.8-10.8)
[2018-10-26 06:19] LABS: Anion Gap 20 mmol/L (10-20); BUN (Urea Nitrogen) 82 mg/dL (9.8-20.1); Calc. Creatinine Clearance 6 mL/min (70-130); Calcium 8.4 mg/dL (7.8-10.44); Carbon Dioxide 18 mmol/L (23-31); Chloride 103 mmol/L (98-107); Estimated GFR-MDRD 4; Glucose 114 mg/dL (83-110); Magnesium 2.6 mg/dL (1.6-2.6); Potassium 3.3 mmol/L (3.5-5.1); Sodium 138 mmol/L (136-145)
--- NOTE | 2018-10-26 07:43 | PDOC.FM ---
- Subjective Subjective: Patient has a recorded HR of 55 around midnight and has been satting just below 92% on RA with last 2 vital checks. No calls to residents overnight. Patient reports feeling ? this AM. Denies any melena or hematochezia. - Objective MAR Reviewed: Yes Vital Signs & Weight: Vital Signs (12 hours) Temp Pulse Resp BP BP Pulse Ox 10/26/18 04:12 82 20 127/56 L 10/26/18 04:09 97.6 F 85 20 90/40 L 90 L 10/26/18 00:17 90/50 L 10/26/18 00:16 97.7 F 55 L 20 94/41 L 90 L 10/25/18 20:44 97 Weight Admit Weight 60.691 kg Weight 68.719 kg I&O: 10/25/18 10/26/18 10/27/18 06:59 06:59 06:59 Intake Total 1570 802 Output Total 600 500 Balance 970 302 Result Diagrams: 10/26/18 04:35 10/26/18 04:35 Phys Exam - Physical Examination Constitutional: NAD HEENT: moist MMs, sclera anicteric Neck: supple, full ROM Respiratory: no wheezing, no rales, no rhonchi, clear to auscultation bilateral Cardiovascular: RRR 4/6 blowing systolic murmur heard best at R sternal border Gastrointestinal: soft, non-tender, no distention, positive bowel sounds Musculoskeletal: no edema Neurological: non-focal, moves all 4 limbs Psychiatric: normal affect Skin: no rash, normal turgor Dx/Plan (1) Symptomatic anemia Code(s): D64.9 - ANEMIA, UNSPECIFIED Status: Acute (2) UTI (urinary tract infection) Status: Resolved Qualifiers: Urinary tract infection type: acute cystitis (3) CAD (coronary artery disease) Code(s): I25.10 - ATHSCL HEART DISEASE OF [place] CORONARY ARTERY W/O ANG PCTRS Status: Chronic (4) DMII (diabetes mellitus, type 2) Status: Chronic Qualifiers: Diabetes mellitus senior care insulin use: with screen repairer crusher use (5) CKD (chronic kidney disease), stage IV Code(s): N18.4 - CHRONIC KIDNEY DISEASE, STAGE 4 (SEVERE) Status: Chronic (6) ARF (acute renal failure) Status: Acute Qualifiers: Acute renal failure type: with acute tubular necrosis Qualified Code(s): N17.0 - Acute kidney failure with tubular necrosis (7) History of [place] (myocardial infarction) Code(s): I25.2 - OLD MYOCARDIAL INFARCTION Status: Chronic (8) PVD (peripheral vascular disease) Code(s): I73.9 - PERIPHERAL VASCULAR DISEASE, UNSPECIFIED Status: Chronic - Plan Plan: ARF on CKD stage IV - BUN/Cr slightly improved at 82/9.02 today. - Patient was determined to not be a suitable candidate for an AV fistula or a bypass graft given her severe PVD per general surgery. They recommended peritoneal dialysis instead and discussed this with Dr. Tanner. Was dialyzed yesterday for just under 1 hour via temporary access IJ site. Plan to dialyze again today via her temporary access site for ~2 hours as tolerated by patient. - Will defer to Dr. Tanner to speak with patient about best option going forward as he has been following the patient since she was admitted. - Will continue to monitor renal function & urine output daily with QD bloodwork and strict I&Os. Symptomatic anemia superimposed on chronic anemia from CKD - Hgb stable at 7.0 this AM. Patient has been persistently orthostatic and hypotensive as well as a little drowsy but arousable. - Will continue to monitor w/ QD bloodwork & will plan to give 1 unit of PRBCs today with HD. Will get a repeat hemagram 4 hours s/p transfusion & with tomorrow's AM labs. - FOBT pending to check for a possible GI bleed and will continue IV famotidine for GI PPx. - Will continue EPO and Ferrous sulfate with vitamin C as well. Hypokalemia: - K low at 3.3 this AM. Mg WNLs at 2.6. - Will consider giving 40mEQ PO with breakfast today as patient is being dialyzed again today. IDDM2 - Will continue accuchecks achs - Will continue home meds, lantus daily, premeal before meals Chronic Leukopenia - Likely related to pancytopenia from CKD. - Stable. CAD s/p CABG - Aware, will continue home meds. PVD - Aware, will resume home meds. UTI - Resolved. Patient is s/p Rocephin x 6 days. Dispo: Will defer to Dr. Tanner, patient's family nurse practitioner for plans for HD going forward as patient is not a candidate for an AV fistula or graft 2/2 severe PVD per general surgery.
[2018-10-26] MEDS: HumaLOG 300 UNITS/3 ML VIAL SC SCH ×3 (08:28→18:42)
[2018-10-26] MEDS: Ezetimibe 10 MG TAB PO SCH (10:13)
[2018-10-26] MEDS: Magnesium Oxide 400 MG TAB PO SCH ×2 (10:13→20:47)
[2018-10-26] MEDS: Heparin 5,000 UNITS/ML VIAL SC SCH ×3 (10:13→20:47)
[2018-10-26] MEDS: Polyethylene Glycol 3350 17 GM Packet PO SCH (10:13)
[2018-10-26] MEDS: Ascorbic Acid 500 mg Chewable Tablet PO SCH ×2 (10:13→20:45)
[2018-10-26] MEDS: Ferrous Sulfate 325 MG TAB PO SCH (10:13)
[2018-10-26] MEDS: Clopidogrel Bisulfate 75 MG TAB PO SCH (10:14)
[2018-10-26] MEDS: Aspirin 81 mg Enteric Coated Tablet PO SCH (10:14)
[2018-10-26] MEDS: Cyanocobalamin (Vitamin B-12) 1,000 MCG TAB PO SCH (10:14)
[2018-10-26] MEDS: busPIRone HCl 10 MG TAB PO SCH ×2 (10:14→20:45)
[2018-10-26] MEDS: Pantoprazole 40 MG VIAL IVP SCH (10:15)
[2018-10-26] MEDS ORDERED: Heparin 1,000 UNITS/ML VIAL ONE (11:11)
[2018-10-26] MEDS: Acetaminophen 500 MG TAB PO PRN ×2 (14:36→23:23)
[2018-10-26] MEDS: Insulin Glargine 10 UNITS in Pre-Filled Syringe 1 EACH SC SCH (20:46)
[2018-10-26] MEDS: Senokot 8.6 MG TAB PO SCH (20:46)
[2018-10-26] MEDS: Rosuvastatin 10 MG TAB PO SCH (20:47)
[2018-10-27 05:14] LABS: #Eosinphils 0.1 thou/uL (0.0-0.7); #Lymphocytes 1.8 thou/uL (1.20-3.40); #Monocytes 0.9 thou/uL (0.11-0.59); #Neutrophils 3.3 thou/uL (1.40-6.50); %Basophils 0.6 % (0.0-1.0); %Eosinophils 1.5 % (0.0-10.0); %Lymphocytes 29.3 % (21.0-51.0); %Monocytes 14.7 % (0.0-10.0); %Neutrophils 53.8 % (42.0-75.0); Hemoglobin 6.7 g/dL (12.0-16.0); Mean Corpuscular HGB CONC 31.5 g/dL (32.0-36.0); Mean Corpuscular Hemoglobin 29.8 pg (27.0-31.0); Mean Corpuscular Volume 94.4 fL (78.0-98.0); Mean Platelet Volume 7.1 fL (7.4-10.4); Platelet Count 185 thou/uL (130-400); RBC Distribution Width 14.2 % (11.5-14.5); Red Blood Cell (RBC) Count 2.26 mill/uL (4.20-5.40)
[2018-10-27 05:36] LABS: Anion Gap 11 mmol/L (10-20); BUN (Urea Nitrogen) 56 mg/dL (9.8-20.1); Calc. Creatinine Clearance 8 mL/min (70-130); Calcium 8.1 mg/dL (7.8-10.44); Carbon Dioxide 26 mmol/L (23-31); Chloride 104 mmol/L (98-107); Estimated GFR-MDRD 6; Glucose 145 mg/dL (83-110); Potassium 3.2 mmol/L (3.5-5.1); Sodium 138 mmol/L (136-145)
[2018-10-27] MEDS: Acetaminophen 500 MG TAB PO PRN (08:59)
--- NOTE | 2018-10-27 09:26 | PDOC.FM ---
- Subjective Subjective: SUDEEP overnight. Pt reports she is feeling better after dialysis. - Objective Vital Signs & Weight: Vital Signs (12 hours) Temp Pulse Resp BP Pulse Ox 10/27/18 07:24 98.9 F 73 15 120/56 L 97 10/27/18 04:04 98.2 F 69 18 118/54 L 93 L 10/27/18 00:00 97.3 F L 87 17 103/50 L 93 L Weight Admit Weight 60.691 kg Weight 69.672 kg I&O: 10/26/18 10/27/18 10/28/18 06:59 06:59 06:59 Intake Total 802 1014 Output Total 500 450 Balance 302 564 Result Diagrams: 10/27/18 04:40 10/27/18 04:40 <Stuart Lau - Last Filed: 10/27/18 09:23> - Objective Vital Signs & Weight: Vital Signs (12 hours) Temp Pulse Resp BP Pulse Ox 10/27/18 07:24 98.9 F 73 15 120/56 L 97 10/27/18 04:04 98.2 F 69 18 118/54 L 93 L Weight Admit Weight 60.691 kg Weight 69.672 kg I&O: 10/26/18 10/27/18 10/28/18 06:59 06:59 06:59 Intake Total 802 1014 Output Total 500 450 Balance 302 564 Result Diagrams: 10/27/18 04:40 10/27/18 04:40 <Isaac Walls - Last Filed: 10/27/18 12:01> Phys Exam - Physical Examination Constitutional: NAD HEENT: PERRLA, sclera anicteric Neck: no nodes, no JVD Respiratory: no wheezing, no rales, no rhonchi, clear to auscultation bilateral Cardiovascular: RRR, no significant murmur, no rub Gastrointestinal: soft, non-tender, no distention, positive bowel sounds Musculoskeletal: pulses present, edema present Neurological: non-focal, normal sensation, moves all 4 limbs Psychiatric: normal affect Skin: no rash, normal turgor, cap refill <2 seconds <Stuart Lau - Last Filed: 10/27/18 09:23> Dx/Plan (1) ARF (acute renal failure) Status: Acute Qualifiers: Acute renal failure type: with acute tubular necrosis Qualified Code(s): N17.0 - Acute kidney failure with tubular necrosis (2) UTI (urinary tract infection) Status: Resolved Qualifiers: Urinary tract infection type: acute cystitis (3) CAD (coronary artery disease) Code(s): I25.10 - ATHSCL HEART DISEASE OF [place] CORONARY ARTERY W/O ANG PCTRS Status: Chronic (4) CKD (chronic kidney disease), stage IV Code(s): N18.4 - CHRONIC KIDNEY DISEASE, STAGE 4 (SEVERE) Status: Chronic (5) DMII (diabetes mellitus, type 2) Status: Chronic Qualifiers: Diabetes mellitus mcfp insulin use: with buttermaker continuous churn use (6) PVD (peripheral vascular disease) Code(s): I73.9 - PERIPHERAL VASCULAR DISEASE, UNSPECIFIED Status: Chronic - Plan Plan: ARF on CKD stage IV - continue HD with temporary cath - increase chair time today - transfuse 2UPRBCs with dialysis Symptomatic anemia superimposed on chronic anemia from CKD -transfuse 2UPRBCs w/ HD Hypokalemia: - dialysis, consider replacement IDDM2 - Will continue accuchecks achs - Will continue home meds, lantus daily, premeal before meals Chronic Leukopenia - Likely related to pancytopenia from CKD. - Stable. CAD s/p CABG - Aware, will continue home meds. PVD - Aware, will resume home meds. UTI - Resolved. Patient is s/p Rocephin x 6 days. Dispo: Cont HD and increase chair time today. Transfuse 2UPRBCs with HD today and cont EPO/Iron/Vit C. Will likley need PD setup per gen surg. <Stuart Lau - Last Filed: 10/27/18 09:23> Attending Addendum - Attending Addendum Date/Time: 10/27/18 1200 I personally evaluated the patient and discussed the management with Dr. Lau. I agree with and repeated the History, Examination, Assessment and Plan documented above with any addition or exceptions noted below. No n/v, no f/c. Mentation has improved after dialysis. Nonfocal exam. Continue dialysis. Monitor labs. Doubt previous leukopenia is from CKD. Will need outpatient dx endoscopy for +occult. <Isaac Walls - Last Filed: 10/27/18 12:01>
[2018-10-27] MEDS: HumaLOG 300 UNITS/3 ML VIAL SC SCH ×3 (11:47→18:06)
[2018-10-27] MEDS: Ascorbic Acid 500 mg Chewable Tablet PO SCH ×2 (12:36→20:28)
[2018-10-27] MEDS: Aspirin 81 mg Enteric Coated Tablet PO SCH (12:36)
[2018-10-27] MEDS: busPIRone HCl 10 MG TAB PO SCH ×2 (12:39→20:27)
[2018-10-27] MEDS: Cyanocobalamin (Vitamin B-12) 1,000 MCG TAB PO SCH (12:39)
[2018-10-27] MEDS: Ezetimibe 10 MG TAB PO SCH (12:39)
[2018-10-27] MEDS: Clopidogrel Bisulfate 75 MG TAB PO SCH (12:39)
[2018-10-27] MEDS: Ferrous Sulfate 325 MG TAB PO SCH (12:39)
[2018-10-27] MEDS: Magnesium Oxide 400 MG TAB PO SCH ×2 (12:40→20:28)
[2018-10-27] MEDS: Polyethylene Glycol 3350 17 GM Packet PO SCH (12:40)
[2018-10-27 15:03] VITALS: BMI 24.0
[2018-10-27] MEDS: traMADol HCl 50 MG TAB PO PRN (20:26)
[2018-10-27] MEDS: Rosuvastatin 10 MG TAB PO SCH (20:28)
[2018-10-27] MEDS: Senokot 8.6 MG TAB PO SCH (20:29)
[2018-10-27] MEDS: Insulin Glargine 10 UNITS in Pre-Filled Syringe 1 EACH SC SCH ×2 (20:52→21:17)
[2018-10-27 22:00] LABS: Hemoglobin 9.2 g/dL (12.0-16.0)
[2018-10-28 06:20] LABS: #Lymphocytes 1.2 thou/uL (1.20-3.40); #Monocytes 0.8 thou/uL (0.11-0.59); #Neutrophils 3.2 thou/uL (1.40-6.50); %Basophils 0.7 % (0.0-1.0); %Eosinophils 0.9 % (0.0-10.0); %Lymphocytes 22.7 % (21.0-51.0); %Monocytes 14.3 % (0.0-10.0); %Neutrophils 61.4 % (42.0-75.0); Hemoglobin 9.2 g/dL (12.0-16.0); Mean Corpuscular HGB CONC 31.9 g/dL (32.0-36.0); Mean Corpuscular Hemoglobin 30.2 pg (27.0-31.0); Mean Corpuscular Volume 94.4 fL (78.0-98.0); Platelet Count 155 thou/uL (130-400); RBC Distribution Width 14.2 % (11.5-14.5); Red Blood Cell (RBC) Count 3.03 mill/uL (4.20-5.40); White Blood Cell (WBC) Count 5.3 thou/uL (4.8-10.8)
[2018-10-28 06:42] LABS: Anion Gap 9 mmol/L (10-20); BUN (Urea Nitrogen) 24 mg/dL (9.8-20.1); Calc. Creatinine Clearance 14 mL/min (70-130); Calcium 7.7 mg/dL (7.8-10.44); Carbon Dioxide 30 mmol/L (23-31); Chloride 103 mmol/L (98-107); Estimated GFR-MDRD 12; Glucose 117 mg/dL (83-110); Potassium 3.5 mmol/L (3.5-5.1); Sodium 138 mmol/L (136-145)
--- NOTE | 2018-10-28 09:00 | PDOC.FM ---
- Subjective Subjective: SUDEEP overnight. Pt is doing well and reports she has some of her energy back in addition to her appetite. She is eating well and has no complaints. - Objective Vital Signs & Weight: Vital Signs (12 hours) Temp Pulse Resp BP Pulse Ox 10/28/18 07:30 98.4 F 61 14 112/56 L 93 L 10/28/18 03:05 98.1 F 72 19 108/51 L 92 L Weight Admit Weight 60.691 kg Weight 68.22 kg I&O: 10/27/18 10/28/18 10/29/18 06:59 06:59 06:59 Intake Total 1014 250 Output Total 450 0 Balance 564 250 Result Diagrams: 10/28/18 05:55 10/28/18 05:55 <Stuart Lau - Last Filed: 10/28/18 08:55> - Objective Vital Signs & Weight: Vital Signs (12 hours) Temp Pulse Resp BP Pulse Ox 10/28/18 07:30 98.4 F 61 14 112/56 L 93 L 10/28/18 03:05 98.1 F 72 19 108/51 L 92 L Weight Admit Weight 60.691 kg Weight 68.22 kg I&O: 10/27/18 10/28/18 10/29/18 06:59 06:59 06:59 Intake Total 1014 250 Output Total 450 0 Balance 564 250 Result Diagrams: 10/28/18 05:55 10/28/18 05:55 <Isaac Walls - Last Filed: 10/28/18 11:20> Phys Exam - Physical Examination Constitutional: NAD HEENT: PERRLA, moist MMs, sclera anicteric Neck: no nodes, no JVD Respiratory: no wheezing, no rales, no rhonchi, clear to auscultation bilateral Cardiovascular: RRR, no significant murmur, no rub Gastrointestinal: soft, non-tender, no distention, positive bowel sounds Musculoskeletal: pulses present, edema present Neurological: non-focal, moves all 4 limbs Psychiatric: normal affect Skin: no rash, normal turgor, cap refill <2 seconds <Stuart Lau - Last Filed: 10/28/18 08:55> Dx/Plan (1) ARF (acute renal failure) Status: Acute Qualifiers: Acute renal failure type: with acute tubular necrosis Qualified Code(s): N17.0 - Acute kidney failure with tubular necrosis (2) UTI (urinary tract infection) Status: Resolved Qualifiers: Urinary tract infection type: acute cystitis (3) CAD (coronary artery disease) Code(s): I25.10 - ATHSCL HEART DISEASE OF [place] CORONARY ARTERY W/O ANG PCTRS Status: Chronic (4) CKD (chronic kidney disease), stage IV Code(s): N18.4 - CHRONIC KIDNEY DISEASE, STAGE 4 (SEVERE) Status: Chronic (5) DMII (diabetes mellitus, type 2) Status: Chronic Qualifiers: Diabetes mellitus halfway insulin use: with long term care phlebotomist use (6) PVD (peripheral vascular disease) Code(s): I73.9 - PERIPHERAL VASCULAR DISEASE, UNSPECIFIED Status: Chronic - Plan Plan: ESRD on HD - pt has been set up with a bed OP and per nephros note can be discharged - she tolerated HD well yesterday and is greatly improved since yesterday - Hgb stable after 2UpRBCs - plan for DC to home today and HD tomorrow with her bed that has been set up Symptomatic anemia superimposed on chronic anemia from CKD -transfuse 2UPRBCs w/ HD - resolved, Hgb >9 and stable overnight Hypokalemia: - resolved, dialysis 3x/week - chair established - ok for DC to home IDDM2 - eating well, resume home meds - sugars acceptable. - dc to home today with home regimen Chronic Leukopenia - Likely related to pancytopenia from CKD. - Stable. CAD s/p CABG - home meds. PVD -home meds. UTI - Resolved, s/p abx rx Dispo: Pt has HD chair set up per Nephros note and is ok for DC to home. Will plan on DC to home today with close OP f/u and HD tomorrow. <Stuart Lau - Last Filed: 10/28/18 08:55> Attending Addendum - Attending Addendum Date/Time: 10/28/18 1119 I personally evaluated the patient and discussed the management with Dr. Lau. I agree with and repeated the History, Examination, Assessment and Plan documented above with any addition or exceptions noted below. No n/v/f/c/cp/sob. Likely d/c today. <Isaac Walls - Last Filed: 10/28/18 11:20>
[2018-10-28] MEDS: Epoetin (ESRD) 20,000 UNITS/ML SC SCH (09:05)
[2018-10-28] MEDS: Ascorbic Acid 500 mg Chewable Tablet PO SCH ×3 (09:06→21:11)
[2018-10-28] MEDS: Ezetimibe 10 MG TAB PO SCH ×2 (09:06→13:50)
[2018-10-28] MEDS: Clopidogrel Bisulfate 75 MG TAB PO SCH ×2 (09:06→13:49)
[2018-10-28] MEDS: busPIRone HCl 10 MG TAB PO SCH ×3 (09:06→21:11)
[2018-10-28] MEDS: Cyanocobalamin (Vitamin B-12) 1,000 MCG TAB PO SCH ×2 (09:06→13:49)
[2018-10-28] MEDS: Aspirin 81 mg Enteric Coated Tablet PO SCH ×2 (09:07→13:49)
[2018-10-28] MEDS: Magnesium Oxide 400 MG TAB PO SCH ×3 (09:07→21:12)
[2018-10-28] MEDS: Ferrous Sulfate 325 MG TAB PO SCH (09:07)
[2018-10-28] MEDS: Ondansetron PF 4 MG/2 ML Vial IVP PRN (09:14)
[2018-10-28] MEDS: HumaLOG 300 UNITS/3 ML VIAL SC SCH ×3 (10:09→19:37)
[2018-10-28] MEDS: Polyethylene Glycol 3350 17 GM Packet PO SCH (10:10)
[2018-10-28] MEDS: Senokot 8.6 MG TAB PO SCH (21:11)
[2018-10-28] MEDS: Rosuvastatin 10 MG TAB PO SCH (21:11)
[2018-10-28] MEDS: Insulin Glargine 10 UNITS in Pre-Filled Syringe 1 EACH SC SCH (21:13)
[2018-10-29 05:42] LABS: Hemoglobin 9.5 g/dL (12.0-16.0); Mean Corpuscular HGB CONC 32.1 g/dL (32.0-36.0); Mean Corpuscular Hemoglobin 30.8 pg (27.0-31.0); Mean Corpuscular Volume 95.9 fL (78.0-98.0); Mean Platelet Volume 7.3 fL (7.4-10.4); Platelet Count 152 thou/uL (130-400); RBC Distribution Width 14.7 % (11.5-14.5); Red Blood Cell (RBC) Count 3.09 mill/uL (4.20-5.40)
[2018-10-29 05:56] LABS: Anion Gap 12 mmol/L (10-20); BUN (Urea Nitrogen) 33 mg/dL (9.8-20.1); Calc. Creatinine Clearance 11 mL/min (70-130); Calcium 8.2 mg/dL (7.8-10.44); Carbon Dioxide 28 mmol/L (23-31); Chloride 103 mmol/L (98-107); Estimated GFR-MDRD 9; Glucose 141 mg/dL (83-110); Potassium 3.6 mmol/L (3.5-5.1); Sodium 139 mmol/L (136-145)
[2018-10-29 06:44] LABS: Band 2 % (5-11); Eosinophils 6 % (0-10); Lymphocytes 18 % (21-51); MDiff Complete? YES; Monocytes 12 % (0-10); Neutrophil 62 % (42-75)
[2018-10-29] MEDS: Ferrous Sulfate 325 MG TAB PO SCH (08:53)
[2018-10-29] MEDS: Cyanocobalamin (Vitamin B-12) 1,000 MCG TAB PO SCH (08:53)
[2018-10-29] MEDS: Polyethylene Glycol 3350 17 GM Packet PO SCH (08:53)
[2018-10-29] MEDS: Ascorbic Acid 500 mg Chewable Tablet PO SCH (08:53)
[2018-10-29] MEDS: busPIRone HCl 10 MG TAB PO SCH (08:53)
[2018-10-29] MEDS: Aspirin 81 mg Enteric Coated Tablet PO SCH (08:54)
[2018-10-29] MEDS: Magnesium Oxide 400 MG TAB PO SCH (08:54)
[2018-10-29] MEDS: Clopidogrel Bisulfate 75 MG TAB PO SCH (08:54)
[2018-10-29] MEDS: Ezetimibe 10 MG TAB PO SCH (08:54)
[2018-10-29] MEDS: HumaLOG 300 UNITS/3 ML VIAL SC SCH ×2 (08:56→11:28)
[2018-10-29] MEDS: Acetaminophen 500 MG TAB PO PRN (08:58)
--- NOTE | 2018-10-29 10:53 | PDOC.FM ---
- Subjective Subjective: SUDEEP overnight. Pt was unable to be dc'd 2/2 placement issues. She will be dialyzed in hospital and remains stable for DC to home. Some epigastric pain after eating breafast, otherwise no complaints. - Objective Vital Signs & Weight: Vital Signs (12 hours) Temp Pulse Resp BP Pulse Ox 10/29/18 08:00 99 F 70 17 111/56 L 92 L 10/29/18 03:30 99.3 F 69 18 111/56 L 91 L Weight Admit Weight 60.691 kg Weight 68.124 kg I&O: 10/28/18 10/29/18 10/30/18 06:59 06:59 06:59 Intake Total 250 1110 Output Total 0 Balance 250 1110 Result Diagrams: 10/29/18 05:00 10/29/18 05:00 <Stuart Lau - Last Filed: 10/29/18 10:51> - Objective Vital Signs & Weight: Vital Signs (12 hours) Temp Pulse Resp BP BP Pulse Ox 10/29/18 14:30 98.6 F 67 16 145/54 H 92 L 10/29/18 08:00 99 F 70 17 111/56 L 92 L Weight Admit Weight 60.691 kg Weight 68.124 kg I&O: 10/28/18 10/29/18 10/30/18 06:59 06:59 06:59 Intake Total 250 1110 240 Output Total 0 1000 Balance 250 1110 -760 Result Diagrams: 10/29/18 05:00 10/29/18 05:00 <Isaac Walls - Last Filed: 10/29/18 16:43> Phys Exam - Physical Examination Constitutional: NAD HEENT: PERRLA, sclera anicteric Neck: no nodes Respiratory: no wheezing, no rales, no rhonchi, clear to auscultation bilateral Cardiovascular: RRR, no significant murmur, no rub Gastrointestinal: soft, non-tender, positive bowel sounds Musculoskeletal: no edema, pulses present Neurological: non-focal, moves all 4 limbs Skin: no rash, cap refill <2 seconds <Stuart Lau - Last Filed: 10/29/18 10:51> Dx/Plan (1) End stage renal disease on dialysis Code(s): N18.6 - END STAGE RENAL DISEASE; Z99.2 - DEPENDENCE ON RENAL DIALYSIS Status: Acute (2) ARF (acute renal failure) Status: Acute Qualifiers: Acute renal failure type: with acute tubular necrosis Qualified Code(s): N17.0 - Acute kidney failure with tubular necrosis (3) UTI (urinary tract infection) Status: Resolved Qualifiers: Urinary tract infection type: acute cystitis (4) CAD (coronary artery disease) Code(s): I25.10 - ATHSCL HEART DISEASE OF [place] CORONARY ARTERY W/O ANG PCTRS Status: Chronic (5) CKD (chronic kidney disease), stage IV Code(s): N18.4 - CHRONIC KIDNEY DISEASE, STAGE 4 (SEVERE) Status: Chronic (6) DMII (diabetes mellitus, type 2) Status: Chronic Qualifiers: Diabetes mellitus assisted insulin use: with assisted use (7) PVD (peripheral vascular disease) Code(s): I73.9 - PERIPHERAL VASCULAR DISEASE, UNSPECIFIED Status: Chronic - Plan Plan: ESRD on HD - pt staqble on dialysis - dc to swing bed today and cont MWF dialysis Symptomatic anemia superimposed on chronic anemia from CKD -Hgb stable after 2U PRBCs Hypokalemia: - resolved, dialysis 3x/week IDDM2 - eating well, resume home meds - sugars acceptable. - dc to home today with home regimen - stable and ready for DC to home Chronic Leukopenia - Likely related to pancytopenia from CKD. - Stable. CAD s/p CABG - home meds. PVD -home meds. UTI - Resolved, s/p abx rx Dispo: Spoke with nephro yesterday who confirmed OP dialysis chair. Will DC Lt central line and HD via tunnelled cath. Discharge to swing bed today. Pepcid X 1 for epigastric discomfort and PPI for GERD. <Stuart Lau - Last Filed: 10/29/18 10:51> Attending Addendum - Attending Addendum Date/Time: 10/29/18 6222 I personally evaluated the patient and discussed the management with Dr. Lau. I agree with and repeated the History, Examination, Assessment and Plan documented above with any addition or exceptions noted below. Denies pain, f/c/n/v to me. Tolerating HD well. Awaiting placement. <Isaac Walls - Last Filed: 10/29/18 16:43>
[2018-10-29 14:30] LABS: Hep B Surface AG-Rflx Sendout Negative (Negative); Hepatitis B Core IgM AB Negative (Negative); Hepatitis B Core Total Negative (Negative); Hepatitis B Surface AB-Sendout Non Reactive (.)
[2018-10-29 15:45] VITALS: BP 145/54; TEMP 98.6
[2018-10-30] MEDS ORDERED: Famotidine/PF 20 mg/2ml Vial SLOW IVP SCH (09:00)
[2018-10-30] MEDS ORDERED: Heparin 10,000 UNITS/ 10 ML VIAL ONE ×2 (14:37→14:40)
== END 2018-10-29 16:25 | DRG 674 ==
LOC: 2NO 16:23
PROVIDERS: ADMIT Family Medicine; ATTEND Family Medicine
PROC: 02HV33Z Insertion of Infusion Device into Superior Vena Cava, Percutaneous Approach (ICD-10-PCS; principal; 2018-10-24)
PROC: 0JH63XZ Insertion of Tunneled Vascular Access Device into Chest Subcutaneous Tissue and Fascia, Percutaneous Approach (ICD-10-PCS; 2018-10-24)
PROC: 5A1D70Z Performance of Urinary Filtration, Intermittent, Less than 6 Hours Per Day (ICD-10-PCS; 2018-10-27)
PROC: 30233N1 Transfusion of Nonautologous Red Blood Cells into Peripheral Vein, Percutaneous Approach (ICD-10-PCS; 2018-10-27)
DX: N17.0 Acute kidney failure with tubular necrosis (principal); N30.00 Acute cystitis without hematuria; D61.818 Other pancytopenia; I12.0 Hypertensive chronic kidney disease with stage 5 chronic kidney disease or end stage renal disease; N18.6 End stage renal disease; D63.1 Anemia in chronic kidney disease; I25.10 Atherosclerotic heart disease of native coronary artery without angina pectoris; E11.51 Type 2 diabetes mellitus with diabetic peripheral angiopathy without gangrene; E11.22 Type 2 diabetes mellitus with diabetic chronic kidney disease; E87.6 Hypokalemia; I08.1 Rheumatic disorders of both mitral and tricuspid valves; Z95.1 Presence of aortocoronary bypass graft; I25.2 Old myocardial infarction; Z95.820 Peripheral vascular angioplasty status with implants and grafts; Z95.0 Presence of cardiac pacemaker; Z79.02 Long term (current) use of antithrombotics/antiplatelets; Z79.82 Long term (current) use of aspirin; Z79.4 Long term (current) use of insulin; Z87.891 Personal history of nicotine dependence; Z88.2 Allergy status to sulfonamides
CPT/HCPCS: 36415; 36416; 36430; 71045; 80048; 81003; 81015; 82274; 82553; 82570; 83036; 83735; 84100; 84145; 84156; 84484; 85025; 85060; 86580; 86704; 86705; 86706; 86707; 86803; 86850; 86900; 86901; 87077; 87086; 87186; 87340; 87350; 87389; 87902; 90471; 90662; 90935; 93306; 93970; C1752; C9113; G0008; G0257; G0365; G8978-GP-CL; G8979-GP-CJ; J0670; J0696; J1644; J2001; J2405; J2550; J2704; J3010; J7042; J7050; P9016; Q0162; Q4081

== ENCOUNTER 2020-03-31 13:07 | Outpatient (CLI) | payer MEDICARE, MEDICAID, OTHER ==
--- NOTE | 2020-03-31 17:41 | EKG ---
Test Reason : Blood Pressure : / mmHG Vent. Rate : 060 BPM Atrial Rate : 060 BPM P-R Int : 156 ms QRS Dur : 118 ms QT Int : 428 ms P-R-T Axes : 093 -30 129 degrees QTc Int : 428 ms Electronic atrial pacemaker Left axis deviation Septal infarct , age undetermined Abnormal ECG No previous ECGs available Confirmed by DR. Jaswinder LEIVA MD ([id number]) on 03/31/2020 5:40:40 PM Referred By: DOMINIK Confirmed By:DR. Jaswinder LEIVA MD
[2020-04-01 10:41] LABS: SARS-CoV-2 MS2 Positive; SARS-CoV-2 N Gene Negative; SARS-CoV-2 S Gene Negative; SARS-CoV-2 orf1ab Negative
== END 2020-03-31 13:08 | disposition home or self-care (01) ==
LOC: LABBT 13:07
PROVIDERS: ATTEND Specialist
DX: Z01.818 Encounter for other preprocedural examination (principal); Z11.59 Encounter for screening for other viral diseases; N18.6 End stage renal disease
CPT/HCPCS: 87635; 93005; 93010; U0003

== ENCOUNTER 2020-04-05 09:16 | Day surgery (SDC) | payer MEDICARE, MEDICAID ==
[2020-03-31 13:48] VITALS: BMI 20.8
--- NOTE | 2020-04-05 09:23 | HP ---
HISTORY OF PRESENT ILLNESS: Samara Smyth is a 79-year-old female, dialyzes Saturday, Saturday, and Saturday in [place]. 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 Dr. Whitaker started her on this. Patient has a right IJ cuff tunneled dialysis catheter that I placed in October 2018. This has not been changed since. She presents to the office today with the cuff extruded. Patient has been dialysis catheter dependent. She has multiple stents arterial with PAD. She does on exam today have a palpable radial pulse right, nonpalpable left radial pulse. She is told that her blood pressures were all taken in the right arm due to left subclavian artery stenosis. Patient underwent a vein mapping in October 2018, noting a cephalic vein right arm to be probably inadequate, but the basilic vein possibly could be used in a staged procedure. Plan at this time is to hold her anticoagulation and plan next week for removal of her old right IJ catheter, placement of a new one, and placement of right arm fistula, possibly requiring basilic vein staged versus graft. She understands the risks and benefits and consents. Patient lives at home. She has discussed this with her son, who is agreeable. ALLERGIES: DOPAMINE AND SULFA. MEDICATIONS: 1. Atorvastatin. 2. Benadryl. 3. Glucagon. 4. Magnesium. 5. Aspirin. 6. Buspirone. 7. Insulin. 8. Isosorbide. 9. MiraLAX. 10. Prilosec. 11. Cholecalciferol. 12. Potassium. 13. Inhalers. 14. Iron. 15. Ascorbic acid. PAST MEDICAL HISTORY: Type 2 diabetes mellitus; end-stage renal disease, on dialysis; PAD; status post coronary artery bypass grafting. PAST SURGICAL HISTORY: Coronary artery bypass grafting in April 2018, total abdominal hysterectomy in 1963, pacemaker in left subclavian vein, left hip ORIF, history of left CEA, and right IJ dialysis catheter. FAMILY HISTORY: Father , mother diseased, coronary artery disease. SOCIAL HISTORY: Past history of smoking, none currently. Alcohol, none. PHYSICAL EXAMINATION: VITAL SIGNS: 136/38, 63, degrees. HEAD, EARS, EYES, NOSE, AND THROAT: Unremarkable. LUNGS: Clear to auscultation. CARDIAC: Regular rate and rhythm, without murmur or gallop. ABDOMEN: Soft, nontender. CHEST WALL: Pacemaker, left chest. VASCULAR: Palpable radial pulse, right. ASSESSMENT: Right IJ dialysis catheter cuff extruded, suture in place. PLAN: Outpatient surgery next week, removal of right IJ catheter, placement of new one. We will try to establish more durable access in the right arm, fistula, possibly staged versus graft. She understands risks and benefits, consents. She will hold her anticoagulation Xarelto three days prior. 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 Job ID: [id number]
[2020-04-05 10:23] LABS: #Basophils 0.1 thou/uL (0.0-0.2); #Eosinphils 0.1 thou/uL (0.0-0.7); #Lymphocytes 1.3 thou/uL (1.20-3.40); #Monocytes 0.6 thou/uL (0.11-0.59); #Neutrophils 2.8 thou/uL (1.40-6.50); %Basophils 1.1 % (0.0-1.0); %Eosinophils 2.8 % (0.0-10.0); %Lymphocytes 27.2 % (21.0-51.0); %Monocytes 11.8 % (0.0-10.0); %Neutrophils 57.2 % (42.0-75.0); Hemoglobin 7.5 g/dL (12.0-16.0); Mean Corpuscular HGB CONC 30.4 g/dL (32.0-36.0); Mean Corpuscular Hemoglobin 29.7 pg (27.0-31.0); Mean Corpuscular Volume 97.8 fL (78.0-98.0); Mean Platelet Volume 6.9 fL (7.4-10.4); Platelet Count 217 thou/uL (130-400); RBC Distribution Width 15.9 % (11.5-14.5); Red Blood Cell (RBC) Count 2.54 mill/uL (4.20-5.40); White Blood Cell (WBC) Count 4.9 thou/uL (4.8-10.8)
[2020-04-05] MEDS ORDERED: Sodium Chloride 0.9% 10 ML ONE (10:44)
[2020-04-05] MEDS ORDERED: Lidocaine 1% w/Epinephrine 1:100K 20 ML VIAL ONE (10:44)
[2020-04-05] MEDS ORDERED: Heparin 10,000 UNITS/1 ML VIAL ONE (10:44)
[2020-04-05] MEDS ORDERED: Bupivacaine 0.25% HCL 30 ML VIAL ONE (10:44)
[2020-04-05 10:48] LABS: Anion Gap 12 mmol/L (10-20); BUN (Urea Nitrogen) 21 mg/dL (9.8-20.1); Calc. Creatinine Clearance 20 mL/min (70-130); Calcium 8.7 mg/dL (7.8-10.44); Carbon Dioxide 29 mmol/L (23-31); Chloride 101 mmol/L (98-107); Estimated GFR-MDRD 21; Glucose 132 mg/dL (83-110); Potassium 4.2 mmol/L (3.5-5.1); Sodium 138 mmol/L (136-145)
[2020-04-05] MEDS ORDERED: Midazolam HCl 2 mg/2 ml Vial ONE (11:27)
[2020-04-05] MEDS ORDERED: Propofol 500 MG/50 ML VIAL ONE (11:27)
[2020-04-05] MEDS ORDERED: Fentanyl 100 MCG/2 ML VIAL ONE (11:27)
[2020-04-05] MEDS ORDERED: Ondansetron PF 4 MG/2 ML Vial ONE (12:37)
[2020-04-05] MEDS ORDERED: PROPOFOL 200 MG/20 ML VIAL ONE (12:37)
[2020-04-05] MEDS ORDERED: EPHEDRINE 25 MG/5 ML SYRINGE ONE (12:37)
[2020-04-05] MEDS ORDERED: PHENYLEPHRINE-NS 100 MCG/ML 10 ML SYRINGE ONE (12:37)
--- NOTE | 2020-04-05 13:00 | RAD ---
Chest one view HISTORY: Dialysis catheter placement. COMPARISON: 02/06/2020. FINDINGS: Cardiac silhouette is magnified and upper limits of normal in size. Pulmonary vasculature a lso upper limits of normal. Mediastinum is midline with postoperative changes, aortic calcification, and a dual lead left subclav gage cardiac electronic device. Large caliber dual lumen right internal jugular dialysis type catheter in place with tips overlying t he superior vena cava. No evidence of pneumothorax. Metallic stent over the lateral aspect of the right apex. Lungs remain hyperinflated. Widespread reticulonodular interstitial prominence similar in appearance to the prior study. IMPRESSION : Right internal jugular dialysis catheter is in good radiographic position. Atherosclerosis. Chronic-type findings are stable.
--- NOTE | 2020-04-05 19:26 | OP ---
DATE OF PROCEDURE: 04/05/2020 PREOPERATIVE DIAGNOSES: 1. End-stage renal disease. 2. Dysfunctional right internal jugular cuffed tunneled dialysis catheter, cuff extruded, mechanical complication of the catheter. 3. Right subclavian artery stent. 4. Left subclavian vein pacemaker. 5. Left subclavian artery occlusion. 6. Palpable radial pulse question of right subclavian artery stenosis, needs further evaluation prior to establishment of a fistula or graft in the right arm. 7. On Xarelto for cardiac reasons. POSTOPERATIVE DIAGNOSES: 1. End-stage renal disease. 2. Dysfunctional right internal jugular cuffed tunneled dialysis catheter, cuff extruded, mechanical complication of the catheter. 3. Right subclavian artery stent. 4. Left subclavian vein pacemaker. 5. Left subclavian artery occlusion. 6. Palpable radial pulse question of right subclavian artery stenosis, needs further evaluation prior to establishment of a fistula or graft in the right arm. 7. On Xarelto for cardiac reasons. PROCEDURES PERFORMED: 1. Removal of right internal jugular cuffed tunneled dialysis catheter. 2. Placement of right internal jugular cuffed tunneled dialysis catheter, fluoroscopy used. ANESTHESIA: TIVA and local with 0.25% Marcaine 30 mL, mixed with 2% Xylocaine 20 mL with epinephrine. DESCRIPTION OF PROCEDURE: The patient was taken to the operating room where under intravenous sedation, neck, chest, and an IJ cuffed tunneled dialysis catheter access site at the right chest were prepared with ChloraPrep and draped in routine fashion. Local anesthetic was infiltrated in the skin and subcutaneous tissue about the operative sites. An incision was made on the right side of the neck overlying the hemodialysis cuffed catheter. Incision was carried down to the skin and platysma, catheter dissected free, grasped with a hemostat, transected, and the old catheter removed. Area was prepared with ChloraPrep again. A new catheter tunneled through a new access site. I placed a fabric cuff beneath the skin exit site, secured with 3-0 nylon suture. Old catheter was removed off the J-wire, and dilator and Peel-Away sheath were placed over the J-wire into the superior vena cava, and J-wire and dilator removed. Catheter was placed with Peel-Away sheath and Peel-Away sheath removed. Fluoroscopic images revealed good line placement. Platysma was approximated with 4-0 Monocryl, skin with 4-0 Monocryl subdermal, and dermal glue applied. Each port aspirated blood, flushed with saline solution and heparinized saline solution with 1000 units of heparin per mL, indicating volume of the port. Sterile dressing was applied. The patient tolerated the procedure well. The patient will have evaluation by Dr. Whitaker for evaluation of right subclavian artery and then we will consider future placement of the right arm primary fissure most likely a prosthetic graft. Job ID: [id number]
== END 2020-04-05 14:45 | disposition home or self-care (01) ==
LOC: SDC 09:16
PROVIDERS: ATTEND Specialist
PROC: 0JPT3XZ Removal of Tunneled Vascular Access Device from Trunk Subcutaneous Tissue and Fascia, Percutaneous Approach (ICD-10-PCS; principal; 2020-04-05)
PROC: 0JH63XZ Insertion of Tunneled Vascular Access Device into Chest Subcutaneous Tissue and Fascia, Percutaneous Approach (ICD-10-PCS; 2020-04-05)
DX: T82.42XA Displacement of vascular dialysis catheter, initial encounter (principal); E11.22 Type 2 diabetes mellitus with diabetic chronic kidney disease; N18.6 End stage renal disease; I77.9 Disorder of arteries and arterioles, unspecified; E11.51 Type 2 diabetes mellitus with diabetic peripheral angiopathy without gangrene; I25.10 Atherosclerotic heart disease of native coronary artery without angina pectoris; I25.2 Old myocardial infarction; E11.49 Type 2 diabetes mellitus with other diabetic neurological complication; Z87.891 Personal history of nicotine dependence; Z79.01 Long term (current) use of anticoagulants; Z79.02 Long term (current) use of antithrombotics/antiplatelets; Z79.4 Long term (current) use of insulin; Z79.899 Other long term (current) drug therapy; Z88.1 Allergy status to other antibiotic agents; Z88.2 Allergy status to sulfonamides; Z88.8 Allergy status to other drugs, medicaments and biological substances; Z95.0 Presence of cardiac pacemaker; Z95.1 Presence of aortocoronary bypass graft; Z95.820 Peripheral vascular angioplasty status with implants and grafts
CPT/HCPCS: 36558; 36589; 71045; 80048; 85025; C1752; J0690; J1644; J2250; J2405; J2704; J3010; S0020

== ENCOUNTER 2020-04-16 16:52 | Inpatient (IN) | payer MEDICARE, MEDICAID ==
[~2020-04-16 16:52] MED LIST: Heparin 10,000 UNITS/ 10 ML VIAL ONE
[2020-04-16 19:35] VITALS: BMI 23.1
[2020-04-16] MEDS: Morphine 4 MG/ML VIAL ONE ×2 (20:25→20:27)
[2020-04-16] MEDS ORDERED: Dextrose 50% Abboject 50 ML SYRINGE SLOW IVP PRN (20:29)
[2020-04-16] MEDS ORDERED: Dextrose 5% in Water 1,000 ML IV PRN (20:29)
[2020-04-16] MEDS ORDERED: Acetaminophen 650 MG Suppository PR PRN (20:44)
[2020-04-16] MEDS: Dextrose 5%-Lactated Ringers 1,000 ML IV SCH (21:11)
--- NOTE | 2020-04-16 21:57 | HP ---
CHIEF COMPLAINT: Respiratory failure. HISTORY OF PRESENT ILLNESS: Ms. Smyth is a 79-year-old female who was admitted to [facility] in [place] with weakness. The patient was found to be anemic. The patient has been having melenic stool. The patient was found to have colon tumor, the patient underwent colectomy. The patient postoperatively developed respiratory failure requiring intubation. The patient also required multiple blood transfusions for low hemoglobin. Hemoglobin was as low as 5. The patient transferred to our medical facility for continued care and critical care management. The patient has past medical history of coronary artery disease; diabetes mellitus; end-stage renal disease, on hemodialysis; peripheral vascular disease, among others. When the patient arrived to the intensive care unit, the patient was seen by Pulmonary/radio repairer and orders were written to extubate the patient. Currently, patient is post extubation, does not appear to be in distress. Receiving hemodialysis. PAST MEDICAL HISTORY: 1. End-stage renal disease, on hemodialysis. 2. Coronary artery disease. 3. Diabetes mellitus. 4. Myocardial infarction. 5. Peripheral vascular disease. 6. Anemia. PAST SURGICAL HISTORY: 1. Cardiac pacemaker. 2. Carotid endarterectomy. 3. Coronary artery bypass graft surgery. 4. Hysterectomy. 5. PTCA. 6. Cardiac pacemaker. SOCIAL HISTORY: She is a former smoker. No alcohol drinking. ALLERGIES: ALLERGIC TO DOPAMINE, RANOLAZINE, SULFAMETHOXAZOLE AND TRIMETHOPRIM. HOME MEDICATIONS: Current medications; please see home medication reconciliation form for updated medications. FAMILY HISTORY: Reviewed and noncontributory. REVIEW OF SYSTEMS: Review of 14 systems negative except what is mentioned in history of present illness. The patient denies chest pain, shortness of breath, or abdominal pain. PHYSICAL EXAMINATION: GENERAL: The patient is awake, alert, does not appear to be in acute distress. VITAL SIGNS: Blood pressure 150/56, pulse is 79, respiratory rate is 18, temperature 98.6. HEAD AND NECK: Normocephalic, atraumatic. NECK: Supple. CHEST: Decreased air entry bilaterally. HEART: Distant heart sounds. ABDOMEN: Distended, mild tenderness, bowel sounds present. NEUROLOGIC: Awake, alert, oriented, moving extremities. PSYCHIATRIC: Unable to assess. EXTREMITIES: No clubbing, no cyanosis. GENITOURINARY: No suprapubic tenderness. No flank tenderness. LABORATORY DATA: Reviewed. ASSESSMENT AND PLAN: 1. Postoperative respiratory failure, status post extubation. 2. Anemia requiring multiple blood transfusions. 3. Gastrointestinal bleed. 4. Post colectomy for colon tumor. 5. Coronary artery disease. 6. Cardiac pacemaker. 7. End-stage renal disease, on hemodialysis. 8. Peripheral vascular disease. 9. Diabetes mellitus type 2. PLAN: 1. Continue with critical care management, post extubation. 2. Pulmonary/radio repairer consulted for further management. 3. Metal Mockup Maker consulted for continuing hemodialysis. 4. Reconcile home medications. 5. DVT prophylaxis, SCDs. 6. GI prophylaxis as appropriate. 7. Expected length of stay, 2 midnights or more. Job ID: [id number]
[2020-04-16 22:16] LABS: HBSAg Index 0.16 S/CO (0-0.99); Hep B Surf Ag Non-Reactive S/CO (NonReactive)
[2020-04-16] MEDS: Morphine 2 MG/ML SYRINGE SLOW IVP PRN (22:17)
--- NOTE | 2020-04-16 22:56 | CON ---
DATE OF CONSULTATION: 04/16/2020 CONSULTING PHYSICIAN: Sharitaist . REASON FOR CONSULTATION: Respiratory failure. HISTORY OF PRESENT ILLNESS: A 79-year-old female, who underwent a laparotomy earlier today for partial colon resection related to gastrointestinal bleeding. She was extubated in the postop. She was given some fentanyl postop. This resulted in respiratory failure and she had to be reintubated and was transferred to this facility for critical care coverage. Upon arrival, she is not on sedation, awake and alert, basically begging for the tube to come out. Her two sons are at the bedside. PAST MEDICAL HISTORY: 1. Coronary artery disease. 2. Peripheral vascular disease. 3. Mesenteric ischemia. 4. Hypertension. 5. Hyperlipidemia. 6. Atrial fibrillation. 7. Chronic obstructive pulmonary disease. 8. Peptic ulcer disease. 9. End-stage renal disease. 10. Osteoarthritis. 11. Diabetes mellitus type 2. PAST SURGICAL HISTORY: 1. CABG. 2. Carotid endarterectomy. 3. Hysterectomy. 4. PTCA of the left renal artery and stent in the right subclavian. 5. Dialysis access and pacemaker placement. MEDICATIONS: Prior to admission; 1. Vitamin C. 2. Aspirin 81 mg daily. 3. Buspirone 10 mg daily. 4. Cholecalciferol 1000 units daily. 5. Plavix 75 mg daily. 6. Vitamin B12 of 1000 mcg daily. 7. Ezetimibe 10 mg daily. 8. Iron sulfate 325 mg daily. 9. Humalog insulin before meals. 10. [place] as needed. 11. Isosorbide 30 mg daily. 12. Levemir insulin 10 units before bedtime. 13. Magnesium oxide 400 mg b.i.d. 14. Omeprazole 20 mg daily. 15. Polyethylene glycol as needed. 16. Xarelto 15 mg daily. ALLERGIES: BACTRIM, DOPAMINE, RANEXA, AND TRIMETHOPRIM. SOCIAL HISTORY: Lives with her son. Has a remote history of smoking. Does not consume alcohol. Does not use illicit drugs. FAMILY HISTORY: Remarkable for heart disease and cancer. REVIEW OF SYSTEMS: Otherwise negative. PHYSICAL EXAMINATION: VITAL SIGNS: Heart rate 60, blood pressure 140/52, and O2 saturation generally running in the mid 90s. HEENT: Unremarkable. NECK: No adenopathy, JVD, or bruits. LUNGS: Clear anteriorly. CARDIOVASCULAR: S1 and S2. Regular. ABDOMEN: She has a right upper quadrant surgical scar. She has multiple laparoscopy scars. EXTREMITIES: No clubbing, cyanosis, or edema. LABORATORY DATA: Her most recent labs from the [facility] are not available for review at this time. I am told that she had a hemoglobin that had precipitously dropped and that was the reason for going to the operating room earlier today. Her white blood count was 5.4, hematocrit 18.9 - but received transfusion after this value, and platelet count 183. Sodium 141, potassium 4.6, BUN 28, and creatinine 3.1. ASSESSMENT: 1. Postop respiratory failure related to narcotic administration. 2. Chronic obstructive pulmonary disease. 3. End-stage renal disease. 4. Status post laparotomy for removal bleeding segment of colon. PLAN: 1. She undergoing dialysis. 2. She seems strong enough to have an extubation trial. 3. Monitor in ICU at least overnight. 4. Further orders per hospitalist group. Job ID: [id number]
[2020-04-17 03:20] LABS: #Lymphocytes 0.6 thou/uL (1.20-3.40); #Monocytes 0.8 thou/uL (0.11-0.59); %Basophils 0.4 % (0.0-1.0); %Eosinophils 0.2 % (0.0-10.0); %Lymphocytes 8.5 % (21.0-51.0); %Monocytes 10.7 % (0.0-10.0); %Neutrophils 80.3 % (42.0-75.0); Hemoglobin 11.5 g/dL (12.0-16.0); Mean Corpuscular HGB CONC 30.6 g/dL (32.0-36.0); Mean Corpuscular Hemoglobin 29.3 pg (27.0-31.0); Mean Corpuscular Volume 95.6 fL (78.0-98.0); Platelet Count 179 thou/uL (130-400); RBC Distribution Width 14.7 % (11.5-14.5); Red Blood Cell (RBC) Count 3.92 mill/uL (4.20-5.40); White Blood Cell (WBC) Count 7.5 thou/uL (4.8-10.8)
[2020-04-17 03:38] LABS: Anion Gap 16 mmol/L (10-20); BUN (Urea Nitrogen) 4 mg/dL (9.8-20.1); Calc. Creatinine Clearance 35 mL/min (70-130); Carbon Dioxide 25 mmol/L (23-31); Chloride 103 mmol/L (98-107); Estimated GFR-MDRD 40; Glucose 141 mg/dL (83-110); Potassium 4.1 mmol/L (3.5-5.1); Sodium 140 mmol/L (136-145)
[2020-04-17] MEDS: Famotidine/PF 20 mg/2ml Vial SLOW IVP SCH (08:17)
[2020-04-17] MEDS: Morphine 2 MG/ML SYRINGE SLOW IVP PRN ×5 (08:23→23:23)
[2020-04-17] MEDS: Ondansetron PF 4 MG/2 ML Vial IVP PRN ×2 (08:23→12:51)
[2020-04-17] MEDS ORDERED: Prevnar 13-Val Conj/PF 0.5 ML SYRINGE IM ONE (09:00)
[2020-04-17] MEDS ORDERED: Sodium Chloride 0.9% 250 ML IV SCH (09:45)
--- NOTE | 2020-04-17 10:01 | PRG ---
DATE OF SERVICE: 04/17/2020 SUBJECTIVE: The patient was extubated last night. She has done well afterwards except for borderline blood pressure. OBJECTIVE: VITAL SIGNS: Heart rate 69, blood pressure 89/34, O2 saturation 94%, respiratory rate 22. HEENT: Unremarkable. NECK: No adenopathy or JVD. LUNGS: Clear. CARDIAC: S1 and S2. Regular. ABDOMEN: Mildly tender around surgical site. EXTREMITIES: No clubbing, cyanosis, or edema. LABORATORY DATA: White blood cell count 7.5, hematocrit 37.5, and platelet count 179. Sodium 140, potassium 4.1, BUN 4, creatinine 1.2, glucose 141. ASSESSMENT: 1. Hypotension is probably from some volume depletion after dialysis. 2. Status post respiratory failure after narcotic administration in the perioperative period yesterday. 3. Status post laparotomy. 4. Chronic renal failure. PLAN: I will go ahead and give her 250 mL of saline back. If her blood pressure responds, then she is probably ready to be transferred to the floor. No further pulmonary recommendations at this time. Job ID: [id number]
[2020-04-17] MEDS: Heparin 5,000 UNITS/ML VIAL SC SCH ×2 (10:35→19:51)
[2020-04-17] MEDS: Dextrose 5%-Lactated Ringers 1,000 ML IV SCH ×2 (10:42→19:48)
--- NOTE | 2020-04-17 14:03 | PDOC.FM ---
- Subjective Subjective: Transfer from Hospitalist service to Resident service Abreviated interval history - please refer to hospitalist H&P for further details: Pt was at the [facility] yesterday and had a colon resection with primary anastamosis to address a mass in her transverse colon. This was performed by Dr. Cifuentes. Afterwards in post op pt received 100mcg fentanyl. Upon arriving to the floor pt became somnolent and developed ARF. She was intubated and transferred here to the ICU. After receiving narcan pt aroused and was breathing spontaneous and was subsequently extubated. Since then she has been doing well. She has had some low pressures that were responsive to fluids. Right IJ tunnel cath in place. Pt has hx of DM II, ESRD, and COPD. Only current complaint is most operative pain at incision site under right costal margin. - Objective Vital Signs & Weight: Vital Signs (12 hours) Temp Pulse Resp Pulse Ox 04/17/20 12:00 99.0 F 04/17/20 08:00 99.1 F 04/17/20 07:41 60 22 H 97 04/17/20 04:00 98.4 F Weight Admit Weight 61.2 kg Weight 61.2 kg Most Recent Monitor Data Heart Rate from ECG 67 NIBP 110/38 NIBP BP-Mean 62 Respiration from ECG 28 SpO2 95 I&O: 04/16/20 04/17/20 04/18/20 06:59 06:59 06:59 Intake Total 627 390 Output Total 203 45 Balance 424 345 Result Diagrams: 04/17/20 03:09 04/17/20 03:09 Phys Exam - Physical Examination Constitutional: NAD HEENT: moist MMs Neck: full ROM Respiratory: clear to auscultation bilateral Cardiovascular: RRR systolic ejection murmur Gastrointestinal: soft ATTP, incisions CDI Musculoskeletal: no edema Neurological: moves all 4 limbs Psychiatric: normal affect, A&O x 3 Skin: cap refill <2 seconds Dx/Plan - Plan Plan: Acute hypoxic respiratory failure 2/2 narcotics - Extubated last night, currently on 1-2L NC - Likely related to fentanyl post operatively - will be judicious with pain medication dosing Day 1 S/P Hemicolectomy and primary anastamosis - Dr. Cifuentes consulting - No BM or flatus yet - Diet advancing per surg recs ESRD - Will consult Dr. Tanner, pt's vp director of finance - Currently stable from renal stand point, volume down currently DM II - Pt titrates long acting and basal insulin at home - will start MSSI and put on basal as indicated - requirements expected to change as diet is advanced Diet: CL IVF: D5 @ 50 VTE: Heparin and SCD Dispo: Inpt CCU, will can transfer to surg once BP stable. Pt doing very well , will continue to wean off O2. Continue routine post op cares. ELOS > 48hr PCP: Dr. Ram
--- NOTE | 2020-04-17 14:24 | PRG ---
DATE OF SERVICE: 04/17/2020 SUBJECTIVE: Ms. Smyth is postoperative day #1 from laparoscopic right hemicolectomy for colon cancer. She was transfused 2 units upon her admission at the [facility] and 2 units the day before yesterday with her dialysis. After her surgery, she developed confusion and respiratory insufficiency. She required re-intubation and was placed in the intensive care unit. She was transferred to this facility for pulmonary management. She was extubated yesterday evening as she was alert and appeared to have adequate strength to breathe on her own. It appears in retrospect that her respiratory problems were likely related to narcotics that she received in the recovery room. She also was dialyzed yesterday. Today, she is alert and pleasant and interactive. She is alert and oriented x3. She is out of bed in the chair currently. She has been tolerating liquids. She notes minimal appropriate intermittent pain in her right abdominal incision. OBJECTIVE: VITAL SIGNS: On examination, she is afebrile. Her pulse is stable in the 60s to 70. This appears to be a paced rhythm. Her blood pressure was a little low this morning, it was as low as 89/34. She was given some IV fluid and her blood pressure now is 110/38. Her oxygen saturation is 95% on 1 L. LUNGS: Clear to auscultation anteriorly. CARDIAC: Regular rate and rhythm. ABDOMEN: Soft, nontender, and nondistended. Incisions are nicely healed. Bowel sounds are present and normoactive. EXTREMITIES: Unremarkable. LABORATORY DATA: Her CBC shows a white blood cell count of 7.5 with a hemoglobin of 11.5, and platelet count is 179. Her chemistries reveal normal electrolytes. Her BUN is 4 and creatinine is 1.28. Her blood sugars have been between 111 and 172. ASSESSMENT: She has done very well since her transfer to this facility. She appears entirely stable. She would probably be fine going to the floor. I had a lengthy conversation with her son (in excess of 20 minutes), who expressed significant frustration, both with the visitation policy as well as issues with her respiratory code after her surgery yesterday at the [facility]. As she is older and has numerous comorbidities, I will leave her in the intensive care unit overnight with plans to transfer to the surgical floor tomorrow assuming she remains stable. I would anticipate initiating a full liquid diet tomorrow. Job ID: [id number]
[2020-04-18] MEDS: Morphine 2 MG/ML SYRINGE SLOW IVP PRN ×5 (02:30→15:22)
[2020-04-18 03:26] LABS: #Eosinphils 0.1 thou/uL (0.0-0.7); #Lymphocytes 0.8 thou/uL (1.20-3.40); #Monocytes 0.6 thou/uL (0.11-0.59); #Neutrophils 3.6 thou/uL (1.40-6.50); %Basophils 0.9 % (0.0-1.0); %Eosinophils 1.7 % (0.0-10.0); %Monocytes 12.2 % (0.0-10.0); %Neutrophils 69.2 % (42.0-75.0); Hemoglobin 10.9 g/dL (12.0-16.0); Mean Corpuscular HGB CONC 30.5 g/dL (32.0-36.0); Mean Corpuscular Hemoglobin 29.7 pg (27.0-31.0); Mean Corpuscular Volume 97.5 fL (78.0-98.0); Mean Platelet Volume 7.1 fL (7.4-10.4); Platelet Count 177 thou/uL (130-400); RBC Distribution Width 14.9 % (11.5-14.5); Red Blood Cell (RBC) Count 3.66 mill/uL (4.20-5.40); White Blood Cell (WBC) Count 5.1 thou/uL (4.8-10.8)
[2020-04-18 03:55] LABS: Anion Gap 13 mmol/L (10-20); BUN (Urea Nitrogen) 15 mg/dL (9.8-20.1); Calc. Creatinine Clearance 17 mL/min (70-130); Calcium 8.4 mg/dL (7.8-10.44); Carbon Dioxide 27 mmol/L (23-31); Chloride 100 mmol/L (98-107); Estimated GFR-MDRD 17; Glucose 206 mg/dL (83-110); Potassium 4.2 mmol/L (3.5-5.1); Sodium 136 mmol/L (136-145)
--- NOTE | 2020-04-18 06:28 | PDOC.FM ---
- Subjective Subjective: Pt is improving today but she remains with abdominal tenderness at incision site. She denies fever, chills. Has passed flatus. She had dialysis yesterday. She normally has dialysis MWF. - Objective Vital Signs & Weight: Vital Signs (12 hours) Temp Pulse Resp Pulse Ox 04/18/20 04:00 98.9 F 04/18/20 00:23 97 04/18/20 00:21 64 19 97 04/17/20 23:37 99.5 F 04/17/20 20:00 98 04/17/20 19:18 98.8 F 04/17/20 18:41 63 13 100 Weight Admit Weight 61.2 kg Weight 62.868 kg Most Recent Monitor Data Heart Rate from ECG 63 NIBP 120/49 NIBP BP-Mean 72 Respiration from ECG 19 SpO2 97 I&O: 04/16/20 04/17/20 04/18/20 06:59 06:59 06:59 Intake Total 627 2168 Output Total 203 65 Balance 424 2103 Result Diagrams: 04/18/20 03:09 04/18/20 03:09 EKG Reviewed by me: Yes (NSR on bedside tele) Phys Exam - Physical Examination Constitutional: NAD HEENT: PERRLA, moist MMs Respiratory: no wheezing, clear to auscultation bilateral Cardiovascular: RRR, no significant murmur Gastrointestinal: soft, no distention, positive bowel sounds mild tenderness most signficant on L side Musculoskeletal: no edema, pulses present Neurological: normal sensation, moves all 4 limbs Psychiatric: normal affect, A&O x 3 Skin: no rash, normal turgor Dx/Plan (1) S/P left hemicolectomy Code(s): Z90.49 - ACQUIRED ABSENCE OF OTHER SPECIFIED PARTS OF DIGESTIVE TRACT Status: Acute (2) End stage renal disease on dialysis Code(s): N18.6 - END STAGE RENAL DISEASE; Z99.2 - DEPENDENCE ON RENAL DIALYSIS Status: Acute (3) Symptomatic anemia Code(s): D64.9 - ANEMIA, UNSPECIFIED Status: Acute (4) CAD (coronary artery disease) Code(s): I25.10 - ATHSCL HEART DISEASE OF [place] CORONARY ARTERY W/O ANG PCTRS Status: Chronic (5) DMII (diabetes mellitus, type 2) Status: Chronic Qualifiers: Diabetes mellitus oyst[place] insulin use: with oysterman use (6) PVD (peripheral vascular disease) Code(s): I73.9 - PERIPHERAL VASCULAR DISEASE, UNSPECIFIED Status: Chronic - Plan Plan: Acute hypoxic respiratory failure 2/2 narcotics - Extubated, currently on 1-2L NC but requires 2 L at home for COPD but does not take maintenance medication - Likely related to fentanyl post operatively - will be judicious with pain medication dosing - currently receiving morphine Day 2 S/P Hemicolectomy and primary anastamosis - Dr. Cifuentes consulted - will consider moving to surgical floor and starting full liquid diet - + flatus - Diet advancing per surg recs ESRD - Will consult Dr. Tanner, pt's invasive physician; MWF dialysis - Currently stable from renal stand point - will assess fluid status DM II - Pt titrates long acting and basal insulin at home - pt did not receive any SSI overnight, basal insulin not restarted at home. Will restart at a low dose. She ranges from 110's-200's but is on D5 w/o PO intake. Peripheral Vascular Disease/CAD w/ pacemaker - currently on heparin - continue holding plavix Hx of Jugular Thrombus - hold xarelto Anemia - required multiple transfusions per prior notes - continue to monitor, pt on EPO as she has ESRD COPD - controlled, continue duonebs Diet: Surg going to transition to full liquid diet IVF: D5 @ 50 VTE: Heparin and SCD Dispo: Inpt will move to surgical floor, advance diet based on surgical rec's. Med rec during rounds PCP: Dr. Ram Addendum - Attending - Attending Attestation Date/Time: 04/18/20 0352 I personally evaluated the patient and discussed the management with Dr. Diaz. I agree with the History, Examination, Assessment and Plan documented above with any addition or exceptions noted below. Can likely transfer to floor. at baseline O2 requirement. likely ready for d/c in the next few days. awaiting specialist recs.
[2020-04-18] MEDS: Famotidine/PF 20 mg/2ml Vial SLOW IVP SCH (08:33)
[2020-04-18] MEDS: Heparin 5,000 UNITS/ML VIAL SC SCH ×2 (08:33→21:04)
[2020-04-18] MEDS ORDERED: EPOETIN ALFA-EPBX (ESRD) 2,000 UNIT/ML VIAL SC SCH (09:00)
[2020-04-18] MEDS ORDERED: EPOETIN ALFA-EPBX (ESRD) 3,000 UNIT/ML VIAL SC SCH (09:00)
[2020-04-18] MEDS ORDERED: Heparin 10,000 UNITS/ 10 ML VIAL ONE (09:23)
--- NOTE | 2020-04-18 09:49 | PRG ---
DATE OF SERVICE: 04/18/2020 SUBJECTIVE: The patient is doing well, has no complaints. OBJECTIVE: VITAL SIGNS: Temperature 98.9, pulse 71, blood pressure 125/53, O2 saturation 95%. HEENT: Unremarkable. NECK: No adenopathy or JVD. LUNGS: Clear. CARDIAC: S1 and S2 regular. ABDOMEN: Incision is healing well. LABORATORY DATA: White blood cell count 5.1, hematocrit 35.7, and platelet count 177. Sodium 136, potassium 4.2, BUN 15, creatinine 2.6, and glucose 206. ASSESSMENT: 1. Status post respiratory failure, requiring mechanical ventilation. 2. Acute renal dysfunction. 3. End-stage renal disease, requiring intermittent hemodialysis. PLAN: She can be transferred to surgical floor. No further pulmonary issues. We will sign off. Job ID: [id number]
[2020-04-18] MEDS: Insulin Glargine 5 UNITS in Pre-Filled Syringe 1 EACH SC SCH (11:03)
[2020-04-18] MEDS: Dextrose 5%-Lactated Ringers 1,000 ML IV SCH (15:25)
--- NOTE | 2020-04-18 17:37 | PRG ---
DATE OF SERVICE: 04/18/2020 SUBJECTIVE: Ms. Smyth is postoperative day #2 following laparoscopic right hemicolectomy. Pathology is pending regarding this, however, it is expected that this is a colon cancer that was the source of her GI bleeding and persistent . She is examined today while she is in dialysis. She complains of mild right-sided pain at the colon extraction site. This is appropriate. She denies vomiting. She tells me she has had a little bit of flatus, but also notes that she is belching significantly. She denies a bowel movement yet. She is tolerating clear liquids. Full liquids were started today, but she has not had any. OBJECTIVE: VITAL SIGNS: She is afebrile. Pulse is 76, blood pressure is 127/48, oxygen saturation is 95% on 2 L nasal cannula. LUNGS: Clear to auscultation anteriorly. CARDIAC: Regular rate and rhythm. ABDOMEN: Soft, nontender, nondistended. Incision is healing nicely. Bowel sounds are present, but somewhat hypoactive. There is no significant tenderness to examination. LABORATORY DATA: CBC shows a white blood cell count of 5.1 with a hemoglobin of 10.9, platelet count is 177. Her chemistry panel reveals normal electrolytes. Glucose level has been elevated at around 200. ASSESSMENT: The patient is stable and doing well following recent laparoscopic right hemicolectomy. Physical therapy has been ordered and she will need to increase her activity. Her diet will be advanced. As soon as she is appropriately ambulatory and tolerating her diet, then she should be stable for discharge home. I suspect that will be within 24 to 48 hours assuming she has no other medical problems in the interim. Job ID: [id number]
[2020-04-18] MEDS: Acetaminophen 325 MG TAB PO PRN (21:03)
[2020-04-19] MEDS: Dextrose 5%-Lactated Ringers 1,000 ML IV SCH (06:45)
[2020-04-19] MEDS: Acetaminophen 325 MG TAB PO PRN ×2 (06:48→17:50)
--- NOTE | 2020-04-19 07:16 | PDOC.FM ---
- Subjective Subjective: Pt is doing well today. Tolerating diet. Has minimal abdominal pain but improving. Denies n/v. Has not had a BM. BG controlled overnight w/o episodes of hypoglycemia. - Objective Vital Signs & Weight: Vital Signs (12 hours) Temp Pulse Resp BP BP BP Pulse Ox 04/19/20 07:05 98.1 F 66 20 99/56 L 96 04/19/20 06:29 99 04/19/20 06:26 60 16 99 04/19/20 04:00 98.2 F 65 20 108/61 97 04/18/20 23:49 98.1 F 61 20 102/58 L 96 04/18/20 23:36 66 16 97 04/18/20 22:25 98.4 F 67 18 112/40 L 97 04/18/20 20:00 93 L Weight Admit Weight 61.2 kg Weight 67.358 kg Most Recent Monitor Data Heart Rate from ECG 60 NIBP 92/39 NIBP BP-Mean 56 Respiration from ECG 18 SpO2 94 I&O: 04/18/20 04/19/20 04/20/20 06:59 06:59 06:59 Intake Total 2168 Output Total 65 Balance 2103 Result Diagrams: 04/18/20 03:09 04/18/20 03:09 Phys Exam - Physical Examination Constitutional: NAD HEENT: PERRLA, moist MMs Neck: no JVD, full ROM Respiratory: no wheezing, clear to auscultation bilateral Cardiovascular: RRR, no significant murmur Gastrointestinal: soft, no distention, positive bowel sounds mild tenderness Musculoskeletal: pulses present Neurological: non-focal, moves all 4 limbs Psychiatric: normal affect, A&O x 3 Skin: no rash, normal turgor Dx/Plan (1) S/P left hemicolectomy Code(s): Z90.49 - ACQUIRED ABSENCE OF OTHER SPECIFIED PARTS OF DIGESTIVE TRACT Status: Acute (2) End stage renal disease on dialysis Code(s): N18.6 - END STAGE RENAL DISEASE; Z99.2 - DEPENDENCE ON RENAL DIALYSIS Status: Acute (3) Symptomatic anemia Code(s): D64.9 - ANEMIA, UNSPECIFIED Status: Acute (4) CAD (coronary artery disease) Code(s): I25.10 - ATHSCL HEART DISEASE OF [place] CORONARY ARTERY W/O ANG PCTRS Status: Chronic (5) DMII (diabetes mellitus, type 2) Status: Chronic Qualifiers: Diabetes mellitus longterm insulin use: with terminal manager use (6) PVD (peripheral vascular disease) Code(s): I73.9 - PERIPHERAL VASCULAR DISEASE, UNSPECIFIED Status: Chronic - Plan Plan: # Acute hypoxic respiratory failure 2/2 narcotics - Extubated, currently on 1-2L NC but requires 2 L at home for COPD but does not take maintenance medication - Likely related to fentanyl post operatively - will be judicious with pain medication dosing - currently receiving morphine # Day 3 S/P Hemicolectomy and primary anastamosis - Diet advancing per surg recs # ESRD - Will consult Dr. Tanner, pt's medical videographer; MWF dialysis - Currently stable from renal stand point - will assess fluid status # DM II - Pt titrates long acting and basal insulin at home - continue Long acting insulin 5 U qam # Peripheral Vascular Disease/CAD w/ pacemaker - currently on heparin - continue holding plavix # Hx of Jugular Thrombus - hold xarelto # Anemia - required multiple transfusions per prior notes - continue to monitor, pt on EPO as she has ESRD # COPD - controlled, continue duonebs Diet: Tolerated full liquid -> advance per surg IVF: D5 @ 50 VTE: Heparin and SCD Dispo: Inpt will move to surgical floor, advance diet based on surgical rec's. Med rec during rounds PCP: Dr. Ram Addendum - Attending - Attending Attestation Date/Time: 04/19/20 0692 I personally evaluated the patient and discussed the management with Dr. Diaz. I agree with the History, Examination, Assessment and Plan documented above with any addition or exceptions noted below. Patient has not had BM yet. Awaiting further recs. will likely d/c tomorrow after HD as patient is concerned about transportation to HD. Xarelto restarted.
[2020-04-19] MEDS ORDERED: traMADol HCl 50 MG TAB PO PRN ×2 (07:30)
--- NOTE | 2020-04-19 08:00 | PRG ---
DATE OF SERVICE: 04/19/2020 SUBJECTIVE: Ms. Smyth is resting comfortably in her bed on the medical floor. She is postoperative day #3 following laparoscopic right hemicolectomy. She is eating breakfast and denies any nausea or vomiting. She tells me she still has not had flatus or bowel movement and is ambulating little if at all. She tolerated her hemodialysis yesterday uneventfully. OBJECTIVE: VITAL SIGNS: On examination, she is afebrile, pulse is 66, and blood pressure this morning is 99/56. LUNGS: Clear to auscultation. ABDOMEN: Soft. Incisions are healing nicely. There is no significant tenderness. Bowel sounds are present and there is some mild tympanitic sounds. EXTREMITIES: Unremarkable. LABORATORY DATA: She has no new labs other than her blood sugars, which are running between 140 and 180. ASSESSMENT AND PLAN: She is stable after her colon resection. In light of her tympanitic bowel sounds, I feel better about her discharge bowel function before she was discharged. I have consulted the walk-in program and asked her nurse to begin helping her with ambulation and getting her out of bed. I will give her a dose of MiraLAX as well as a Fleet's Enema. After she has bowel function, then she should be stable for discharge home. It is noted that her blood pressure is relatively low and she has not yet been started on her usual antihypertensives. I started her back on her Plavix yesterday. She was on Xarelto before she was admitted to the hospital and this can be restarted at any time and then her subcutaneous heparin shots can be discontinued. Job ID: [id number]
[2020-04-19] MEDS: Heparin 5,000 UNITS/ML VIAL SC SCH (08:04)
[2020-04-19] MEDS: Insulin Glargine 5 UNITS in Pre-Filled Syringe 1 EACH SC SCH (08:50)
[2020-04-19] MEDS: Famotidine 20 MG TAB PO SCH (08:50)
[2020-04-19] MEDS: Clopidogrel Bisulfate 75 MG TAB PO SCH (08:51)
[2020-04-19] MEDS: Polyethylene Glycol 3350 17 GM Packet PO SCH (08:52)
[2020-04-19] MEDS: Rivaroxaban 2.5 MG TAB PO SCH ×2 (11:14→20:27)
[2020-04-19] MEDS ORDERED: Fleet Enema 133 ML BOT FS SCH (12:00)
[2020-04-19] MEDS: HumaLOG 300 UNITS/3 ML VIAL SC PRN (12:38)
--- NOTE | 2020-04-20 07:34 | PDOC.FM ---
- Subjective Subjective: Pt remains unchanged today but has yet to have a BM. She is passing gas. She has been eating a diet. She feels as though she needs a BM but has not. She denies fever, chills, worsening abdominal pain. She does have distention. - Objective Vital Signs & Weight: Vital Signs (12 hours) Temp Pulse Resp BP Pulse Ox 04/20/20 06:29 68 16 98 04/19/20 23:49 63 16 97 04/19/20 20:13 97.3 F L 69 17 125/56 L 99 04/19/20 20:00 99 Weight Admit Weight 61.2 kg Weight 63.673 kg Most Recent Monitor Data Heart Rate from ECG 60 NIBP 92/39 NIBP BP-Mean 56 Respiration from ECG 18 SpO2 94 I&O: 04/19/20 04/20/20 04/21/20 06:59 06:59 06:59 Intake Total 800 Balance 800 Result Diagrams: 04/18/20 03:09 04/18/20 03:09 Phys Exam - Physical Examination Constitutional: NAD HEENT: PERRLA, moist MMs Respiratory: no wheezing, clear to auscultation bilateral Cardiovascular: RRR, no significant murmur soft, mild tenderness, distention, positive bowel sounds Musculoskeletal: no edema, pulses present Neurological: non-focal, normal sensation Psychiatric: normal affect, A&O x 3 Dx/Plan (1) S/P left hemicolectomy Code(s): Z90.49 - ACQUIRED ABSENCE OF OTHER SPECIFIED PARTS OF DIGESTIVE TRACT Status: Acute (2) End stage renal disease on dialysis Code(s): N18.6 - END STAGE RENAL DISEASE; Z99.2 - DEPENDENCE ON RENAL DIALYSIS Status: Acute (3) Symptomatic anemia Code(s): D64.9 - ANEMIA, UNSPECIFIED Status: Acute (4) CAD (coronary artery disease) Code(s): I25.10 - ATHSCL HEART DISEASE OF [place] CORONARY ARTERY W/O ANG PCTRS Status: Chronic (5) DMII (diabetes mellitus, type 2) Status: Chronic Qualifiers: Diabetes mellitus [facility] insulin use: with [facility] use (6) PVD (peripheral vascular disease) Code(s): I73.9 - PERIPHERAL VASCULAR DISEASE, UNSPECIFIED Status: Chronic - Plan Plan: # Acute hypoxic respiratory failure 2/2 narcotics - Extubated, currently on 1-2L NC but requires 2 L at home for COPD but does not take maintenance medication - Likely related to fentanyl post operatively - will be judicious with pain medication dosing - currently receiving morphine # Day 4 S/P Hemicolectomy and primary anastamosis - tolerated diet, pending BM. She is mildly distended but does not have worsening abdominal pain. She is set to receive miralax today. Monitor for obstruction vs ileus. # ESRD - dialysis today # DM II - Pt titrates long acting and basal insulin at home - continue Long acting insulin 5 U qam # Peripheral Vascular Disease/CAD w/ pacemaker - restarted plavix # Hx of Jugular Thrombus - restarted xarelto - needs follow up in outpt setting # Anemia - required multiple transfusions per prior notes - continue to monitor, pt on EPO as she has ESRD # COPD - controlled, continue duonebs Diet: advanced per surgery Dispo: dialysis then discharge pending BM. PCP: Dr. Ram Addendum - Attending - Attending Attestation Date/Time: 04/20/20 2736 I personally evaluated the patient and discussed the management with Dr. Diaz. I agree with the History, Examination, Assessment and Plan documented above with any addition or exceptions noted below. No BM yet but still passing gas. HD today. Awaiting recs from Gen surg. Hopefully d/c in the next 24 hrs.
[2020-04-20] MEDS: Acetaminophen 325 MG TAB PO PRN ×2 (08:09→18:24)
[2020-04-20] MEDS: Polyethylene Glycol 3350 17 GM Packet PO SCH (12:25)
[2020-04-20] MEDS: Famotidine 20 MG TAB PO SCH (12:25)
[2020-04-20] MEDS: Clopidogrel Bisulfate 75 MG TAB PO SCH (12:26)
[2020-04-20] MEDS: Insulin Glargine 5 UNITS in Pre-Filled Syringe 1 EACH SC SCH (12:31)
[2020-04-20] MEDS: Rivaroxaban 2.5 MG TAB PO SCH ×2 (12:32→21:17)
--- NOTE | 2020-04-20 13:13 | PRG ---
DATE OF SERVICE: 04/20/2020 SUBJECTIVE: Ms. Smyth is resting comfortably in her bed on the medical floor. She is postoperative day #4 following laparoscopic right hemicolectomy. Final pathology is pending, but biopsy from her colonoscopy does reveal adenocarcinoma. The CEA level obtained prior to surgery has not resulted yet either. She continues to tolerate full liquids. She denies nausea or vomiting. She tells me she has had some flatus and passed a small amount of brown material from her rectum. She does note that her abdomen feels very bloated. She just finished dialyzing today. OBJECTIVE: VITAL SIGNS: She is afebrile, pulse 69, blood pressure 122/63. LUNGS: Clear to auscultation. ABDOMEN: Soft with excellent bowel sounds. There is mild tympany. Incisions are healing nicely. LABORATORY DATA: There are no new labs for today. Her blood sugars appear to be better controlled and are running between 85 and 101. ASSESSMENT AND PLAN: The patient is stable after surgery for right colon cancer. Due to her tenuous medical status, I will probably await appropriate bowel function before considering discharge. She is on her second day of MiraLAX and hopefully this will produce some bowel function by later today or tomorrow. Job ID: [id number]
--- NOTE | 2020-04-20 14:41 | RAD ---
Radiograph abdomen one view: DATE: 04/20/2020 Time: 1:50 PM HISTORY: 79-year-old female with abdominal distention. FINDINGS: There are air-filled dilated multiple small bowel loops. There is gas in the rectum, and perhaps in t he right lower quadrant. Moderate amount of stool in a small short segment of right colon. IMPRESSION: Abnormal bowel gas pattern: Ileus versus partial or early small bowel obstruction. Recommend follow-u p.
[2020-04-21] MEDS: HumaLOG 300 UNITS/3 ML VIAL SC PRN (05:32)
--- NOTE | 2020-04-21 06:34 | PDOC.FM ---
- Subjective Subjective: Pt is doing well. She has had a few BM's overnight. She feels less distended. She is passing flatus. She denies fever, worsening abdominal pain. Tolerating a diet. - Objective Vital Signs & Weight: Vital Signs (12 hours) Temp Pulse Resp BP BP Pulse Ox 04/21/20 03:19 98 F 60 17 115/66 98 04/20/20 23:51 61 14 98 04/20/20 23:49 98.4 F 61 17 102/62 96 04/20/20 21:00 96/53 L 04/20/20 20:00 82/50 L 96 04/20/20 19:37 98.6 F 61 17 90/47 L 96 Weight Admit Weight 61.2 kg Weight 62.2 kg Most Recent Monitor Data Heart Rate from ECG 60 NIBP 92/39 NIBP BP-Mean 56 Respiration from ECG 18 SpO2 94 I&O: 04/19/20 04/20/20 04/21/20 06:59 06:59 06:59 Intake Total 800 Balance 800 Result Diagrams: 04/21/20 07:39 04/21/20 07:39 Phys Exam - Physical Examination Constitutional: NAD HEENT: PERRLA, moist MMs Neck: no nodes, no JVD Respiratory: no wheezing, clear to auscultation bilateral Cardiovascular: RRR, no significant murmur Gastrointestinal: soft, positive bowel sounds mild distention, mild tenderness at incision sites Musculoskeletal: no edema, pulses present Neurological: non-focal, normal sensation Psychiatric: normal affect, A&O x 3 Dx/Plan (1) S/P left hemicolectomy Code(s): Z90.49 - ACQUIRED ABSENCE OF OTHER SPECIFIED PARTS OF DIGESTIVE TRACT Status: Acute (2) End stage renal disease on dialysis Code(s): N18.6 - END STAGE RENAL DISEASE; Z99.2 - DEPENDENCE ON RENAL DIALYSIS Status: Acute (3) Symptomatic anemia Code(s): D64.9 - ANEMIA, UNSPECIFIED Status: Acute (4) CAD (coronary artery disease) Code(s): I25.10 - ATHSCL HEART DISEASE OF CIRCLE CORONARY ARTERY W/O ANG PCTRS Status: Chronic (5) DMII (diabetes mellitus, type 2) Status: Chronic Qualifiers: Diabetes mellitus care home insulin use: with care home use (6) PVD (peripheral vascular disease) Code(s): I73.9 - PERIPHERAL VASCULAR DISEASE, UNSPECIFIED Status: Chronic - Plan Plan: # Acute hypoxic respiratory failure 2/2 narcotics - Extubated, currently on 1-2L NC but requires 2 L at home for COPD but does not take maintenance medication - Likely related to fentanyl post operatively - will be judicious with pain medication dosing - currently receiving morphine # S/P Hemicolectomy and primary anastamosis - tolerated diet - Abdominal x-ray revealed ileus vs early obstructin - endorsed BM and flatus # ESRD - dialysis tomorrow # DM II - Pt titrates long acting and basal insulin at home - continue Long acting insulin 5 U qam # Peripheral Vascular Disease/CAD w/ pacemaker - restarted plavix # Hx of Jugular Thrombus - restarted xarelto - needs follow up in outpt setting # Anemia - required multiple transfusions per prior notes - continue to monitor, pt on EPO as she has ESRD # COPD - controlled, continue duonebs Diet: advanced per surgery Dispo: home today after discussing with surgery PCP: Dr. Ram Addendum - Attending - Attending Attestation Date/Time: 04/21/20 0487 I personally evaluated the patient and discussed the management with Dr. Diaz. I agree with the History, Examination, Assessment and Plan documented above with any addition or exceptions noted below. will touch base with outpatient cards regarding anticoagulation.
[2020-04-21 07:53] LABS: #Eosinphils 0.2 thou/uL (0.0-0.7); #Lymphocytes 0.7 thou/uL (1.20-3.40); #Monocytes 0.5 thou/uL (0.11-0.59); #Neutrophils 2.2 thou/uL (1.40-6.50); %Basophils 0.5 % (0.0-1.0); %Eosinophils 6.5 % (0.0-10.0); %Lymphocytes 18.4 % (21.0-51.0); %Monocytes 12.8 % (0.0-10.0); Hemoglobin 10.7 g/dL (12.0-16.0); Mean Corpuscular HGB CONC 30.1 g/dL (32.0-36.0); Mean Corpuscular Hemoglobin 29.4 pg (27.0-31.0); Mean Corpuscular Volume 97.5 fL (78.0-98.0); Mean Platelet Volume 7.2 fL (7.4-10.4); Platelet Count 175 thou/uL (130-400); RBC Distribution Width 14.4 % (11.5-14.5); Red Blood Cell (RBC) Count 3.64 mill/uL (4.20-5.40); White Blood Cell (WBC) Count 3.5 thou/uL (4.8-10.8)
[2020-04-21] MEDS: Famotidine 20 MG TAB PO SCH (07:53)
[2020-04-21] MEDS: Polyethylene Glycol 3350 17 GM Packet PO SCH (07:54)
[2020-04-21] MEDS: Insulin Glargine 5 UNITS in Pre-Filled Syringe 1 EACH SC SCH (07:54)
[2020-04-21] MEDS: Clopidogrel Bisulfate 75 MG TAB PO SCH (07:54)
[2020-04-21] MEDS: Acetaminophen 325 MG TAB PO PRN (08:00)
[2020-04-21] MEDS: Rivaroxaban 2.5 MG TAB PO SCH (08:02)
[2020-04-21 08:10] LABS: Anion Gap 14 mmol/L (10-20); BUN (Urea Nitrogen) 10 mg/dL (9.8-20.1); Calc. Creatinine Clearance 21 mL/min (70-130); Calcium 8.6 mg/dL (7.8-10.44); Carbon Dioxide 26 mmol/L (23-31); Chloride 100 mmol/L (98-107); Estimated GFR-MDRD 22; Potassium 3.5 mmol/L (3.5-5.1); Sodium 136 mmol/L (136-145)
[2020-04-21 08:15] LABS: Glucose 59 mg/dL (83-110)
--- NOTE | 2020-04-21 09:17 | PRG ---
DATE OF SERVICE: 04/20/2020 SUBJECTIVE: Ms. Smyth is postoperative day #5 following laparoscopic right hemicolectomy. She was advanced to a regular diet yesterday after she had bowel movements. She tells me she has had further bowel function and flatus. She denies nausea or vomiting. Her final pathology results from colon resection are still pending. OBJECTIVE: VITAL SIGNS: On examination; she is afebrile, pulse is 61, and blood pressure 119/53. LUNGS: Clear to auscultation. CARDIAC: Regular rate and rhythm. ABDOMEN: Soft, nontender, and nondistended. Incision is nicely healed. Bowel sounds are present and normoactive. LABORATORY DATA: Her CBC is stable with a hemoglobin of 10.7 and white blood cell count is 3.5. Differential is normal. Chemistries reveal normal electrolytes. Her creatinine is 2.1 and glucose was a little low at 59 this morning. Her CEA level, which was obtained from before her surgery is 6.8, which is elevated. ASSESSMENT AND PLAN: The patient is doing well following laparoscopic right hemicolectomy. Her bowel function has returned and she is stable for discharge home. I suspect that she had a longer time to return of bowel function secondary to her multiple medical problems including her renal failure. At this time; however, she appears to be doing very well and is stable for discharge home. I will see her back in 10 to 14 days in my office. She has been instructed in activity and wound care. She will be given a prescription for tramadol to use as necessary. Even if she is node positive colon cancer, I doubt that she will be a reasonable candidate for chemotherapy, but referral to Oncology will be made after pathology is known. Job ID: [id number]
[2020-04-21 15:27] VITALS: BP 118/61; TEMP 98
--- NOTE | 2020-04-22 13:44 | DIS ---
DATE OF ADMISSION: 04/16/2020 DATE OF DISCHARGE: 04/21/2020 RESIDENT: Tristan Diaz DO ADMITTING ATTENDING: Louis Bates MD DISCHARGE ATTENDING: Louis Bates MD CONSULTS: 1. Nephrology, Sinan Tanner MD. 2. Pulmonology, Andre Hudson MD. 3. General Surgery, Pablo Cifuentes MD. PROCEDURES PERFORMED: Abdominal x-ray on 04/20/2020, revealed abnormal bowel gas pattern, ileus versus partial or early small bowel obstruction. PRIMARY DIAGNOSES: 1. Acute hypoxic respiratory failure secondary to narcotics. 2. End-stage renal disease, on dialysis. 3. Status post left hemicolectomy. 4. Ileus. SECONDARY DIAGNOSES: 1. Coronary artery disease. 2. Type 2 diabetes. 3. Peripheral vascular disease. 4. Anemia. DISCHARGE MEDICATIONS: 1. Vitamin B12 1000 mcg p.o. daily. 2. Humalog titrated by the patient. 3. Isosorbide mononitrate 15 mg p.o. at bedtime. 4. Vitamin D3 1000 units p.o. daily. 5. Vitamin C 500 mg p.o. b.i.d. 6. Magnesium oxide 800 mg p.o. daily. 7. Iron 65 mg p.o. daily. 8. Protonix 40 mg p.o. daily. 9. Plavix 75 mg p.o. daily. 10. Levemir 5 units subcu daily. 11. Tylenol 1000 mg p.o. q.6 p.r.n. pain. 12. Nitroglycerin 0.4 mg sublingual p.r.n. angina. 13. Midodrine 2.5 mg p.o. t.i.d. . 14. Albuterol 1 puff inhaled q.4 hours p.r.n. shortness of breath. 15. Zetia 10 mg p.o. daily. 16. Klonopin 0.5 mg p.o. at bedtime. 17. Crestor 40 mg p.o. at bedtime. 18. Retacrit 2000 units subcu Mondays with dialysis. DISCONTINUED MEDICATIONS: 1. [place] 10/325 one tab p.o. b.i.d. 2. Xarelto 2.5 mg p.o. b.i.d. HISTORY OF PRESENT ILLNESS/HOSPITAL COURSE: Samara Smyth is a 79-year-old female, who had a partial hemicolectomy due to likely malignancy. This was performed at [facility] by Dr. Cifuentes. The patient does have ESRD as well. After surgery, she required intubation due to acute hypoxic respiratory failure likely secondary to narcotics. 2 hours after inpatient, she was extubated. Pt was administered narcan before extubation. After this, patient's respiratory status was not compromised through her whole stay. The patient did have ileus after the procedure. The night before her discharge, she did have a bowel movement, prompting us that she was ready for discharge. She did require laxatives, enema, and MiraLAX. On the day of discharge, her abdomen was mildly distended but was fairly nontender to palpation. She was passing gas and having bowel movements. She did receive dialysis three times during her stay and is to follow up with her Dialysis Clinic on Saturday after discharge. She is to continue titrating her insulin at home. She tolerated her long- acting 5 units well. Her Plavix was restarted for peripheral vascular disease. Her debone supervisor was contacted and the office stated that she was no longer to be taking her Xarelto for her jugular thrombosis. She needs to follow up with her debone supervisor in the outpatient setting. She does have anemia and was started on EPO. Her anemia is likely secondary to her end-stage renal disease. DISPOSITION: Stable. DISCHARGE INSTRUCTIONS: 1. Location: [facility]. 2. Diet: Heart healthy. 3. Activity: Ad alea. 4. Followup: Follow up with Dr. Cifuentse in 10 to 14 days. Follow up with primary care provider within 7 days. Follow up with Dr. Whitaker, Cardiology, in 10 to 14 days. Job ID: [id number] [facility]
== END 2020-04-21 16:26 | disposition home health service (06) | DRG 189 ==
LOC: CCU 19:05 → IMCU/EMU 04-17 18:18 → T4-B 04-18 22:17
PROVIDERS: ADMIT Internal Medicine; ATTEND Internal Medicine
PROC: 3E0234Z Introduction of Serum, Toxoid and Vaccine into Muscle, Percutaneous Approach (ICD-10-PCS; principal; 2020-04-16)
DX: J96.01 Acute respiratory failure with hypoxia (principal); N18.6 End stage renal disease; K56.7 Ileus, unspecified; I25.10 Atherosclerotic heart disease of native coronary artery without angina pectoris; E78.5 Hyperlipidemia, unspecified; I48.91 Unspecified atrial fibrillation; J44.9 Chronic obstructive pulmonary disease, unspecified; K27.9 Peptic ulcer, site unspecified, unspecified as acute or chronic, without hemorrhage or perforation; M19.90 Unspecified osteoarthritis, unspecified site; E11.22 Type 2 diabetes mellitus with diabetic chronic kidney disease; I73.9 Peripheral vascular disease, unspecified; I12.9 Hypertensive chronic kidney disease with stage 1 through stage 4 chronic kidney disease, or unspecified chronic kidney disease; D63.1 Anemia in chronic kidney disease; K21.9 Gastro-esophageal reflux disease without esophagitis; Z79.01 Long term (current) use of anticoagulants; Z99.2 Dependence on renal dialysis; I25.2 Old myocardial infarction; Z90.49 Acquired absence of other specified parts of digestive tract; Z90.710 Acquired absence of both cervix and uterus; Z88.1 Allergy status to other antibiotic agents; Z88.8 Allergy status to other drugs, medicaments and biological substances; Z95.1 Presence of aortocoronary bypass graft; Z87.891 Personal history of nicotine dependence; Z95.5 Presence of coronary angioplasty implant and graft; Z88.2 Allergy status to sulfonamides
CPT/HCPCS: 36415; 36416; 74018; 80048; 85025; 87340; 90935; 94002; 94640; G0257; J1644; J1815; J2270; J2405; J7620; Q5105; S0028

== ENCOUNTER 2022-04-27 19:03 | Emergency (ER) | payer MEDICARE, MEDICAID ==
[2022-04-27 19:41] LABS: #Eosinphils 0.2 thou/uL (0.0-0.7); #Lymphocytes 0.9 thou/uL (1.20-3.40); #Monocytes 0.6 thou/uL (0.11-0.59); #Neutrophils 2.4 thou/uL (1.40-6.50); %Basophils 0.6 % (0.0-1.0); %Lymphocytes 22.3 % (21.0-51.0); %Monocytes 13.6 % (0.0-10.0); %Neutrophils 59.6 % (42.0-75.0); Hemoglobin 11.3 g/dL (12.0-16.0); Mean Corpuscular HGB CONC 30.2 g/dL (32.0-36.0); Mean Platelet Volume 7.7 fL (7.4-10.4); Platelet Count 135 thou/uL (130-400); RBC Distribution Width 14.1 % (11.5-14.5); Red Blood Cell (RBC) Count 3.53 mill/uL (4.20-5.40)
[2022-04-27 19:59] LABS: ALT (SGPT) 20 U/L (8-55); AST (SGOT) 28 U/L (5-34); Albumin 4.1 g/dL (3.4-4.8); Alkaline Phosphatase 89 U/L (40-110); Anion Gap 17 mmol/L (10-20); BUN (Urea Nitrogen) 43 mg/dL (9.8-20.1); Bilirubin, Total 0.7 mg/dL (0.2-1.2); Calc. Creatinine Clearance 0 mL/min (70-130); Calcium 8.8 mg/dL (7.8-10.44); Carbon Dioxide 20 mmol/L (23-31); Chloride 106 mmol/L (98-107); Globulin 3.1 g/dL (2.4-3.5); Glucose 159 mg/dL (83-110); Potassium 4.8 mmol/L (3.5-5.1); Protein, Total 7.2 g/dL (5.8-8.1); Sodium 138 mmol/L (136-145)
[2022-04-27 20:12] LABS: Burr Cells SLIGHT = 2-5 cells (100X) (0-1/hpf); Hypochromia SLIGHT = 6-15 cells (100X) (0-5/hpf); MDiff Complete? YES; Macrocytosis MODERATE=16-30 cells (100X) (0-5/hpf); Ovalocytes SLIGHT = 2-5 cells (100X) (0-1/hpf); Platelet Morphology Comment Appears Adequate; Polychromasia SLIGHT = 2-3 cells (100X) (0-2/hpf)
[2022-04-27 20:58] LABS: Bacteria/HPF 4+ HPF (None Seen); Bilirubin Negative (Negative); Blood, Urine 1+ (Negative); Clarity Extra Turbid (Clear); Glucose, Urine (Dipstick) Normal (Negative); Ketone, Urine Negative (Negative); Leukocyte 500 Leu/uL (Negative); Nitrite Negative (Negative); Protein, Urine (Dipstick) 100 mg/dL (Neg-Trace); Renal Epithelial 0-3 HPF (None Seen); Specific Gravity, Urine 1.013 (1.002-1.036); Squamous Epithelial 0-3 HPF (0-3); Urobilinogen Normal mg/dL (Less than 2); WBC/HPF Greater than 50 HPF (0-3); pH, Urine 5.5 (5.0-9.0)
== END 2022-04-27 23:04 | disposition home or self-care (01) ==
LOC: ERS 19:03
DX: E11.22 Type 2 diabetes mellitus with diabetic chronic kidney disease (principal); N18.6 End stage renal disease; N39.0 Urinary tract infection, site not specified; I73.9 Peripheral vascular disease, unspecified; Z79.4 Long term (current) use of insulin; Z85.038 Personal history of other malignant neoplasm of large intestine; Z95.5 Presence of coronary angioplasty implant and graft; Z79.899 Other long term (current) drug therapy
CPT/HCPCS: 36415; 81015; 83880; 85379

== ENCOUNTER 2022-10-02 10:38 | Inpatient (IN) | payer MEDICARE, MEDICAID ==
[2022-10-02 11:29] LABS: #Eosinphils 0.1 thou/uL (0.0-0.7); #Lymphocytes 0.8 thou/uL (1.20-3.40); #Monocytes 1.2 thou/uL (0.11-0.59); #Neutrophils 7.1 thou/uL (1.40-6.50); %Basophils 0.3 % (0.0-1.0); %Eosinophils 0.7 % (0.0-10.0); %Lymphocytes 8.3 % (21.0-51.0); %Monocytes 12.8 % (0.0-10.0); Hemoglobin 11.3 g/dL (12.0-16.0); Mean Corpuscular HGB CONC 31.6 g/dL (32.0-36.0); Mean Corpuscular Hemoglobin 34.3 pg (27.0-31.0); Mean Platelet Volume 7.9 fL (7.4-10.4); Platelet Count 145 10x3/uL (130-400); RBC Distribution Width 14.1 % (11.5-14.5); White Blood Cell (WBC) Count 9.2 10x3/uL (4.8-10.8)
[2022-10-02 11:41] LABS: MDiff Complete? YES; Macrocytosis SLIGHT = 6-15 cells (100X) (0-5/hpf); Platelet Morphology Comment Appears Adequate
[2022-10-02 12:01] LABS: Albumin 3.7 g/dL (3.4-4.8)
[2022-10-02 12:02] LABS: CKMB 1.7 ng/mL (0-6.6); Chloride 98 mmol/L (98-107); Potassium 5.2 mmol/L (3.5-5.1); Sodium 139 mmol/L (136-145)
[2022-10-02 12:03] LABS: Calcium 9.2 mg/dL (7.8-10.44); Globulin 3.2 g/dL (2.4-3.5); Glucose 151 mg/dL (83-110); Protein, Total 6.9 g/dL (5.8-8.1)
[2022-10-02 12:05] LABS: Anion Gap 23 mmol/L (10-20); Bilirubin, Total 0.9 mg/dL (0.2-1.2); Carbon Dioxide 23 mmol/L (23-31)
[2022-10-02 12:06] LABS: Alkaline Phosphatase 115 U/L (40-110); Calc. Creatinine Clearance 0 mL/min (70-130); Estimated GFR 4
[2022-10-02 12:07] LABS: BUN (Urea Nitrogen) 46 mg/dL (9.8-20.1)
[2022-10-02 12:08] LABS: AST (SGOT) 32 U/L (5-34)
[2022-10-02 12:09] LABS: ALT (SGPT) 18 U/L (8-55); CK (CPK) 45 U/L (29-168)
[2022-10-02] MEDS ORDERED: Heparin 10,000 UNITS/ 10 ML VIAL ONE (13:39)
[2022-10-02] MEDS ORDERED: Dextrose 50% Abboject 50 ML SYRINGE SLOW IVP PRN (13:54)
[2022-10-02] MEDS ORDERED: Dextrose 5% in Water 1,000 ML IV PRN (13:54)
[2022-10-02] MEDS: Heparin 5,000 UNITS/ML VIAL SC SCH ×2 (16:36→22:11)
[2022-10-02 16:47] LABS: Troponin I 0.117 ng/mL (< 0.028)
[2022-10-02 17:05] LABS: Hep B Core Total Ab Non-Reactive (NonReactive); Hep B Core Total Index 0.12 S/CO (0-0.79)
[2022-10-02 17:28] LABS: Hep B Surf Ag Non-Reactive S/CO (NonReactive); Hep C IgG Ab Non-Reactive (NonReactive); Hep C Index 0.08 S/CO (0-0.79)
[2022-10-02 17:35] LABS: HBSAB Concentration 742.56 mIU/mL; Hep B Surf AB Reactive (NonReactive)
[2022-10-02 19:38] LABS: Troponin I 0.091 ng/mL (< 0.028)
[2022-10-02 19:40] VITALS: BMI 24.3
[2022-10-02] MEDS ORDERED: Albuterol 200 PUFF (6.7GM INHALER) INH PRN (21:46)
[2022-10-02] MEDS ORDERED: Insulin Regular 300 UNITS/3 ML VIAL SC PRN (21:51)
[2022-10-02] MEDS ORDERED: Insulin Glargine 30 UNITS/0.3 ML VIAL SC PRN (22:03)
[2022-10-02] MEDS ORDERED: Albuterol Sulfate 1.25 MG/3 ML NEB NEB PRN (22:06)
[2022-10-02] MEDS: Acetaminophen 325 MG TAB PO PRN (22:35)
[2022-10-02] MEDS ORDERED: Midodrine HCl 5 MG TAB PO SCH (23:59)
[2022-10-03] MEDS ORDERED: Midodrine HCl 5 MG TAB PO SCH (03:45)
[2022-10-03 07:49] LABS: ALT (SGPT) 14 U/L (8-55); AST (SGOT) 23 U/L (5-34); Albumin 3.1 g/dL (3.4-4.8); Alkaline Phosphatase 90 U/L (40-110); Anion Gap 15 mmol/L (10-20); BUN (Urea Nitrogen) 31 mg/dL (9.8-20.1); Bilirubin, Total 0.8 mg/dL (0.2-1.2); Calc. Creatinine Clearance 8 mL/min (70-130); Calcium 8.4 mg/dL (7.8-10.44); Carbon Dioxide 28 mmol/L (23-31); Chloride 98 mmol/L (98-107); Estimated GFR 6; Globulin 2.7 g/dL (2.4-3.5); Glucose 164 mg/dL (83-110); Potassium 4.8 mmol/L (3.5-5.1); Protein, Total 5.8 g/dL (5.8-8.1); Sodium 136 mmol/L (136-145)
[2022-10-03 08:05] LABS: Mean Corpuscular HGB CONC 30.7 g/dL (32.0-36.0); Mean Corpuscular Hemoglobin 33.9 pg (27.0-31.0); Mean Platelet Volume 8.2 fL (7.4-10.4); Platelet Count 122 10x3/uL (130-400); RBC Distribution Width 13.8 % (11.5-14.5); Red Blood Cell (RBC) Count 2.94 mill/uL (4.20-5.40); White Blood Cell (WBC) Count 4.8 10x3/uL (4.8-10.8)
[2022-10-03] MEDS ORDERED: Heparin 10,000 UNITS/ 10 ML VIAL ONE (08:21)
[2022-10-03 09:54] LABS: Band 6 % (5-11); Eosinophils 1 % (0-10); Lymphocytes 19 % (21-51); MDiff Complete? YES; Macrocytosis MODERATE=16-30 cells (100X) (0-5/hpf); Monocytes 10 % (0-10); Neutrophil 63 % (42-75); Platelet Morphology Comment Appears Decreased; Polychromasia SLIGHT = 2-3 cells (100X) (0-2/hpf)
[2022-10-03] MEDS ORDERED: Clindamycin 150 MG CAP PO SCH (10:45)
[2022-10-03] MEDS: Acetaminophen 325 MG TAB PO PRN ×2 (12:13→20:25)
[2022-10-03] MEDS: HumaLOG 300 UNITS/3 ML VIAL SC SCH ×3 (12:14→18:00)
[2022-10-03] MEDS: Heparin 5,000 UNITS/ML VIAL SC SCH ×3 (12:15→20:25)
[2022-10-03] MEDS ORDERED: Amiodarone 200 MG TAB PO SCH (12:18)
[2022-10-03] MEDS: Midodrine HCl 5 MG TAB PO SCH ×3 (12:18→20:25)
[2022-10-03] MEDS: Ascorbic Acid 500 mg Chewable Tablet PO SCH ×2 (17:58→20:24)
[2022-10-03] MEDS: Clopidogrel Bisulfate 75 MG TAB PO SCH (17:58)
[2022-10-03] MEDS: Atorvastatin Calcium 40 MG TAB PO SCH (17:58)
[2022-10-03] MEDS: Cholecalciferol 1,000 UNITS (25 MCG) TAB PO SCH (17:58)
[2022-10-03] MEDS: Cyanocobalamin (Vitamin B-12) 1,000 MCG TAB PO SCH (17:59)
[2022-10-03] MEDS: Ezetimibe 10 MG TAB PO SCH (17:59)
[2022-10-03] MEDS: Clindamycin 150 MG CAP PO SCH ×2 (18:02→20:24)
[2022-10-04 04:57] LABS: ALT (SGPT) 15 U/L (8-55); AST (SGOT) 26 U/L (5-34); Albumin 3.3 g/dL (3.4-4.8); Alkaline Phosphatase 97 U/L (40-110); Anion Gap 16 mmol/L (10-20); BUN (Urea Nitrogen) 20 mg/dL (9.8-20.1); Bilirubin, Total 0.8 mg/dL (0.2-1.2); Calc. Creatinine Clearance 10 mL/min (70-130); Calcium 8.3 mg/dL (7.8-10.44); Carbon Dioxide 26 mmol/L (23-31); Chloride 100 mmol/L (98-107); Estimated GFR 9; Globulin 3.1 g/dL (2.4-3.5); Glucose 142 mg/dL (83-110); Potassium 4.5 mmol/L (3.5-5.1); Protein, Total 6.4 g/dL (5.8-8.1); Sodium 137 mmol/L (136-145)
[2022-10-04 05:14] LABS: Band 4 % (5-11); Hemoglobin 10.2 g/dL (12.0-16.0); Lymphocytes 18 % (21-51); MDiff Complete? YES; Macrocytosis SLIGHT = 6-15 cells (100X) (0-5/hpf); Mean Corpuscular HGB CONC 29.6 g/dL (32.0-36.0); Mean Corpuscular Hemoglobin 32.8 pg (27.0-31.0); Monocytes 12 % (0-10); Neutrophil 64 % (42-75); Platelet Count 122 10x3/uL (130-400); Platelet Morphology Comment Appears Adequate; RBC Distribution Width 13.8 % (11.5-14.5); Reactive Lymphocytes 2 % (0-10); Red Blood Cell (RBC) Count 3.11 mill/uL (4.20-5.40); White Blood Cell (WBC) Count 3.9 10x3/uL (4.8-10.8)
[2022-10-04] MEDS ORDERED: Heparin 10,000 UNITS/ 10 ML VIAL ONE (08:57)
[2022-10-04] MEDS: Midodrine HCl 5 MG TAB PO SCH ×3 (09:13→20:30)
[2022-10-04] MEDS: Acetaminophen 325 MG TAB PO PRN ×2 (11:22→20:29)
[2022-10-04] MEDS: Amiodarone 200 MG TAB PO SCH (15:46)
[2022-10-04] MEDS: Atorvastatin Calcium 40 MG TAB PO SCH (15:46)
[2022-10-04] MEDS: Ezetimibe 10 MG TAB PO SCH (15:46)
[2022-10-04] MEDS: Cholecalciferol 1,000 UNITS (25 MCG) TAB PO SCH (15:47)
[2022-10-04] MEDS: HumaLOG 300 UNITS/3 ML VIAL SC SCH ×3 (15:47→18:20)
[2022-10-04] MEDS: Clindamycin 150 MG CAP PO SCH ×3 (15:47→20:29)
[2022-10-04] MEDS: Clopidogrel Bisulfate 75 MG TAB PO SCH (15:47)
[2022-10-04] MEDS: Cyanocobalamin (Vitamin B-12) 1,000 MCG TAB PO SCH (15:47)
[2022-10-04] MEDS: Ascorbic Acid 500 mg Chewable Tablet PO SCH ×2 (15:47→20:29)
[2022-10-04] MEDS: Heparin 5,000 UNITS/ML VIAL SC SCH ×3 (15:47→20:30)
[2022-10-05 05:14] LABS: ALT (SGPT) 14 U/L (8-55); AST (SGOT) 23 U/L (5-34); Albumin 3.1 g/dL (3.4-4.8); Alkaline Phosphatase 87 U/L (40-110); Anion Gap 14 mmol/L (10-20); BUN (Urea Nitrogen) 15 mg/dL (9.8-20.1); Bilirubin, Total 0.7 mg/dL (0.2-1.2); Calc. Creatinine Clearance 13 mL/min (70-130); Calcium 8.3 mg/dL (7.8-10.44); Carbon Dioxide 26 mmol/L (23-31); Chloride 101 mmol/L (98-107); Estimated GFR 12; Globulin 2.9 g/dL (2.4-3.5); Glucose 156 mg/dL (83-110); Potassium 4.1 mmol/L (3.5-5.1); Sodium 137 mmol/L (136-145)
[2022-10-05 05:46] LABS: Hemoglobin 9.7 g/dL (12.0-16.0); Mean Corpuscular HGB CONC 29.6 g/dL (32.0-36.0); Mean Corpuscular Hemoglobin 32.8 pg (27.0-31.0); Mean Platelet Volume 8.1 fL (7.4-10.4); Platelet Count 132 10x3/uL (130-400); RBC Distribution Width 13.7 % (11.5-14.5); Red Blood Cell (RBC) Count 2.96 mill/uL (4.20-5.40); White Blood Cell (WBC) Count 3.4 10x3/uL (4.8-10.8)
[2022-10-05 05:47] LABS: Band 3 % (5-11); Eosinophils 8 % (0-10); Lymphocytes 27 % (21-51); MDiff Complete? YES; Monocytes 18 % (0-10); Neutrophil 44 % (42-75)
[2022-10-05] MEDS: Cyanocobalamin (Vitamin B-12) 1,000 MCG TAB PO SCH (09:00)
[2022-10-05] MEDS: HumaLOG 300 UNITS/3 ML VIAL SC SCH ×3 (09:00→18:27)
[2022-10-05] MEDS: Clindamycin 150 MG CAP PO SCH ×3 (09:00→21:37)
[2022-10-05] MEDS: Cholecalciferol 1,000 UNITS (25 MCG) TAB PO SCH (09:00)
[2022-10-05] MEDS: Clopidogrel Bisulfate 75 MG TAB PO SCH (09:00)
[2022-10-05] MEDS: Heparin 5,000 UNITS/ML VIAL SC SCH ×3 (09:00→21:38)
[2022-10-05] MEDS: Ascorbic Acid 500 mg Chewable Tablet PO SCH ×2 (09:00→21:37)
[2022-10-05] MEDS: Midodrine HCl 5 MG TAB PO SCH ×3 (09:01→21:38)
[2022-10-05] MEDS: Ezetimibe 10 MG TAB PO SCH (09:01)
[2022-10-05] MEDS: Amiodarone 200 MG TAB PO SCH (09:01)
[2022-10-05] MEDS: Atorvastatin Calcium 40 MG TAB PO SCH (09:01)
[2022-10-05] MEDS: Acetaminophen 325 MG TAB PO PRN (09:12)
[2022-10-05] MEDS ORDERED: Mometasone 100 MCG/Formoterol 5 MCG 120 PUFF INHALER INH SCH (09:30)
[2022-10-05] MEDS: Mometasone 100 MCG/Formoterol 5 MCG 120 PUFF INHALER INH SCH (19:45)
[2022-10-05] MEDS: clonazePAM 0.5 MG TAB PO SCH (21:38)
[2022-10-05] MEDS: HumaLOG 300 UNITS/3 ML VIAL SC PRN (21:44)
[2022-10-06 04:47] LABS: ALT (SGPT) 12 U/L (8-55); AST (SGOT) 23 U/L (5-34); Albumin 3.3 g/dL (3.4-4.8); Alkaline Phosphatase 93 U/L (40-110); Anion Gap 14 mmol/L (10-20); BUN (Urea Nitrogen) 25 mg/dL (9.8-20.1); Bilirubin, Total 0.6 mg/dL (0.2-1.2); Calc. Creatinine Clearance 10 mL/min (70-130); Calcium 8.6 mg/dL (7.8-10.44); Carbon Dioxide 26 mmol/L (23-31); Chloride 99 mmol/L (98-107); Estimated GFR 9; Globulin 3.1 g/dL (2.4-3.5); Glucose 231 mg/dL (83-110); Potassium 4.4 mmol/L (3.5-5.1); Protein, Total 6.4 g/dL (5.8-8.1); Sodium 135 mmol/L (136-145)
[2022-10-06 05:05] LABS: Band 1 % (5-11); Eosinophils 8 % (0-10); Lymphocytes 27 % (21-51); MDiff Complete? YES; Macrocytosis SLIGHT = 6-15 cells (100X) (0-5/hpf); Mean Corpuscular HGB CONC 29.9 g/dL (32.0-36.0); Mean Corpuscular Hemoglobin 33.4 pg (27.0-31.0); Mean Platelet Volume 8.1 fL (7.4-10.4); Monocytes 22 % (0-10); Neutrophil 42 % (42-75); Platelet Count 133 10x3/uL (130-400); RBC Distribution Width 13.7 % (11.5-14.5); Red Blood Cell (RBC) Count 2.98 mill/uL (4.20-5.40); White Blood Cell (WBC) Count 3.6 10x3/uL (4.8-10.8)
[2022-10-06] MEDS: HumaLOG 300 UNITS/3 ML VIAL SC PRN (06:34)
[2022-10-06] MEDS: Mometasone 100 MCG/Formoterol 5 MCG 120 PUFF INHALER INH SCH ×2 (06:55→18:25)
[2022-10-06] MEDS ORDERED: Heparin 10,000 UNITS/ 10 ML VIAL ONE (08:55)
[2022-10-06] MEDS: HumaLOG 300 UNITS/3 ML VIAL SC SCH ×3 (10:16→17:00)
[2022-10-06] MEDS: Ascorbic Acid 500 mg Chewable Tablet PO SCH ×2 (10:18→20:26)
[2022-10-06] MEDS: Atorvastatin Calcium 40 MG TAB PO SCH (10:18)
[2022-10-06] MEDS: Amiodarone 200 MG TAB PO SCH (10:18)
[2022-10-06] MEDS: Cyanocobalamin (Vitamin B-12) 1,000 MCG TAB PO SCH (10:19)
[2022-10-06] MEDS: Clopidogrel Bisulfate 75 MG TAB PO SCH (10:19)
[2022-10-06] MEDS: Clindamycin 150 MG CAP PO SCH ×3 (10:19→20:26)
[2022-10-06] MEDS: Cholecalciferol 1,000 UNITS (25 MCG) TAB PO SCH (10:19)
[2022-10-06] MEDS: Ezetimibe 10 MG TAB PO SCH (10:20)
[2022-10-06] MEDS: Heparin 5,000 UNITS/ML VIAL SC SCH ×3 (10:20→20:27)
[2022-10-06] MEDS: Midodrine HCl 5 MG TAB PO SCH ×3 (10:21→20:27)
[2022-10-06] MEDS: Acetaminophen 325 MG TAB PO PRN (10:22)
[2022-10-06] MEDS: Saccharomyces boulardii 250 MG CAP PO SCH (10:22)
[2022-10-06] MEDS: clonazePAM 0.5 MG TAB PO SCH (20:27)
[2022-10-07 06:05] LABS: ALT (SGPT) 13 U/L (8-55); AST (SGOT) 26 U/L (5-34); Albumin 3.5 g/dL (3.4-4.8); Alkaline Phosphatase 89 U/L (40-110); Anion Gap 13 mmol/L (10-20); BUN (Urea Nitrogen) 14 mg/dL (9.8-20.1); Bilirubin, Total 0.7 mg/dL (0.2-1.2); Calc. Creatinine Clearance 13 mL/min (70-130); Calcium 8.6 mg/dL (7.8-10.44); Carbon Dioxide 28 mmol/L (23-31); Chloride 100 mmol/L (98-107); Estimated GFR 12; Globulin 3.1 g/dL (2.4-3.5); Glucose 231 mg/dL (83-110); Potassium 4.1 mmol/L (3.5-5.1); Protein, Total 6.6 g/dL (5.8-8.1); Sodium 137 mmol/L (136-145)
[2022-10-07] MEDS: HumaLOG 300 UNITS/3 ML VIAL SC PRN (06:11)
[2022-10-07 06:39] LABS: Band 3 % (5-11); Eosinophils 5 % (0-10); Hemoglobin 10.3 g/dL (12.0-16.0); Lymphocytes 26 % (21-51); MDiff Complete? YES; Mean Corpuscular HGB CONC 30.8 g/dL (32.0-36.0); Mean Corpuscular Hemoglobin 34.1 pg (27.0-31.0); Monocytes 20 % (0-10); Neutrophil 46 % (42-75); Platelet Count 134 10x3/uL (130-400); RBC Distribution Width 13.7 % (11.5-14.5); Red Blood Cell (RBC) Count 3.02 mill/uL (4.20-5.40); White Blood Cell (WBC) Count 3.3 10x3/uL (4.8-10.8)
[2022-10-07] MEDS: Mometasone 100 MCG/Formoterol 5 MCG 120 PUFF INHALER INH SCH ×2 (07:09→18:59)
[2022-10-07] MEDS: HumaLOG 300 UNITS/3 ML VIAL SC SCH ×3 (10:24→18:09)
[2022-10-07] MEDS: Atorvastatin Calcium 40 MG TAB PO SCH (10:26)
[2022-10-07] MEDS: Clindamycin 150 MG CAP PO SCH ×3 (10:26→20:18)
[2022-10-07] MEDS: Ascorbic Acid 500 mg Chewable Tablet PO SCH ×2 (10:26→20:19)
[2022-10-07] MEDS: Ezetimibe 10 MG TAB PO SCH (10:27)
[2022-10-07] MEDS: Clopidogrel Bisulfate 75 MG TAB PO SCH (10:29)
[2022-10-07] MEDS: Cholecalciferol 1,000 UNITS (25 MCG) TAB PO SCH (10:29)
[2022-10-07] MEDS: Cyanocobalamin (Vitamin B-12) 1,000 MCG TAB PO SCH (10:29)
[2022-10-07] MEDS: Midodrine HCl 5 MG TAB PO SCH ×3 (10:29→20:19)
[2022-10-07] MEDS: Amiodarone 200 MG TAB PO SCH (10:30)
[2022-10-07] MEDS: Saccharomyces boulardii 250 MG CAP PO SCH (10:30)
[2022-10-07] MEDS: Heparin 5,000 UNITS/ML VIAL SC SCH ×3 (10:31→20:19)
[2022-10-07] MEDS: clonazePAM 0.5 MG TAB PO SCH (20:19)
[2022-10-07] MEDS: Acetaminophen 325 MG TAB PO PRN (20:21)
[2022-10-08 05:32] LABS: ALT (SGPT) 15 U/L (8-55); AST (SGOT) 26 U/L (5-34); Albumin 3.4 g/dL (3.4-4.8); Alkaline Phosphatase 90 U/L (40-110); Anion Gap 16 mmol/L (10-20); BUN (Urea Nitrogen) 24 mg/dL (9.8-20.1); Bilirubin, Total 0.6 mg/dL (0.2-1.2); Calc. Creatinine Clearance 9 mL/min (70-130); Calcium 8.8 mg/dL (7.8-10.44); Carbon Dioxide 26 mmol/L (23-31); Chloride 97 mmol/L (98-107); Estimated GFR 8; Globulin 3.2 g/dL (2.4-3.5); Glucose 314 mg/dL (83-110); Potassium 4.3 mmol/L (3.5-5.1); Protein, Total 6.6 g/dL (5.8-8.1); Sodium 135 mmol/L (136-145)
[2022-10-08 05:58] LABS: Band 4 % (5-11); Eosinophils 1 % (0-10); Hemoglobin 9.7 g/dL (12.0-16.0); Lymphocytes 20 % (21-51); MDiff Complete? YES; Macrocytosis SLIGHT = 6-15 cells (100X) (0-5/hpf); Mean Corpuscular HGB CONC 30.9 g/dL (32.0-36.0); Mean Corpuscular Hemoglobin 34.1 pg (27.0-31.0); Mean Platelet Volume 8.3 fL (7.4-10.4); Monocytes 23 % (0-10); Myelocyte 1 % (0-0); Neutrophil 51 % (42-75); Platelet Count 134 10x3/uL (130-400); RBC Distribution Width 13.8 % (11.5-14.5); Red Blood Cell (RBC) Count 2.85 mill/uL (4.20-5.40); White Blood Cell (WBC) Count 4.2 10x3/uL (4.8-10.8)
[2022-10-08] MEDS: HumaLOG 300 UNITS/3 ML VIAL SC PRN ×2 (06:14→11:32)
[2022-10-08] MEDS: Mometasone 100 MCG/Formoterol 5 MCG 120 PUFF INHALER INH SCH (07:43)
[2022-10-08] MEDS ORDERED: Heparin 10,000 UNITS/ 10 ML VIAL ONE (08:34)
[2022-10-08] MEDS: Midodrine HCl 5 MG TAB PO SCH ×2 (10:31→17:03)
[2022-10-08] MEDS: Saccharomyces boulardii 250 MG CAP PO SCH (11:34)
[2022-10-08] MEDS: HumaLOG 300 UNITS/3 ML VIAL SC SCH ×2 (11:35→14:05)
[2022-10-08] MEDS: Ascorbic Acid 500 mg Chewable Tablet PO SCH ×2 (11:35→17:01)
[2022-10-08] MEDS: Heparin 5,000 UNITS/ML VIAL SC SCH ×2 (11:36→16:57)
[2022-10-08] MEDS: Clindamycin 150 MG CAP PO SCH ×2 (11:36→16:57)
[2022-10-08 12:45] VITALS: BP 111/48; TEMP 98.3
[2022-10-08] MEDS: Ezetimibe 10 MG TAB PO SCH (16:57)
[2022-10-08] MEDS: Atorvastatin Calcium 40 MG TAB PO SCH (16:58)
[2022-10-08] MEDS: Amiodarone 200 MG TAB PO SCH (16:58)
[2022-10-08] MEDS: Clopidogrel Bisulfate 75 MG TAB PO SCH (17:01)
[2022-10-08] MEDS: Cholecalciferol 1,000 UNITS (25 MCG) TAB PO SCH (17:01)
[2022-10-08] MEDS: Cyanocobalamin (Vitamin B-12) 1,000 MCG TAB PO SCH (17:01)
== END 2022-10-08 18:20 | disposition home health service (06) | DRG 640 ==
LOC: ERS 10:38 → ERHOLD 12:49 → 2NO 14:59
PROVIDERS: ADMIT Family Medicine; ATTEND Student in an Organized Health Care Education/Training Program
PROC: 5A1D70Z Performance of Urinary Filtration, Intermittent, Less than 6 Hours Per Day (ICD-10-PCS; principal; 2022-10-02)
DX: E87.70 Fluid overload, unspecified (principal); J96.01 Acute respiratory failure with hypoxia; N18.6 End stage renal disease; I50.32 Chronic diastolic (congestive) heart failure; L03.114 Cellulitis of left upper limb; Z20.822 Contact with and (suspected) exposure to COVID-19; E87.5 Hyperkalemia; R77.8 Other specified abnormalities of plasma proteins; D63.1 Anemia in chronic kidney disease; J44.9 Chronic obstructive pulmonary disease, unspecified; E11.22 Type 2 diabetes mellitus with diabetic chronic kidney disease; I87.2 Venous insufficiency (chronic) (peripheral); R79.89 Other specified abnormal findings of blood chemistry; I48.91 Unspecified atrial fibrillation; I95.89 Other hypotension; I08.3 Combined rheumatic disorders of mitral, aortic and tricuspid valves; Z99.2 Dependence on renal dialysis; Z99.81 Dependence on supplemental oxygen; Z88.2 Allergy status to sulfonamides; Z88.8 Allergy status to other drugs, medicaments and biological substances; Z95.0 Presence of cardiac pacemaker; Z90.710 Acquired absence of both cervix and uterus; Z98.51 Tubal ligation status; Z90.49 Acquired absence of other specified parts of digestive tract; Z95.5 Presence of coronary angioplasty implant and graft
CPT/HCPCS: 36415; 36416; 71045; 80053; 82550; 82553; 83605; 83880; 84484; 85025; 86704; 87340; 93005; 93306; 94640; J1644; J1815; J7620; U0003; U0005

== ENCOUNTER 2022-10-18 11:23 | Inpatient (IN) | payer MEDICARE, MEDICAID ==
[2022-10-18 12:05] LABS: Mean Corpuscular HGB CONC 31.3 g/dL (32.0-36.0); Mean Corpuscular Hemoglobin 34.7 pg (27.0-31.0); Platelet Count 159 10x3/uL (130-400); RBC Distribution Width 13.9 % (11.5-14.5); Red Blood Cell (RBC) Count 3.16 mill/uL (4.20-5.40); White Blood Cell (WBC) Count 5.7 10x3/uL (4.8-10.8)
[2022-10-18 12:20] LABS: ALT (SGPT) 13 U/L (8-55); AST (SGOT) 20 U/L (5-34); Albumin 3.8 g/dL (3.4-4.8); Alkaline Phosphatase 82 U/L (40-110); Anion Gap 17 mmol/L (10-20); BUN (Urea Nitrogen) 33 mg/dL (9.8-20.1); Bilirubin, Total 0.6 mg/dL (0.2-1.2); Calc. Creatinine Clearance 0 mL/min (70-130); Calcium 9.3 mg/dL (7.8-10.44); Carbon Dioxide 26 mmol/L (23-31); Chloride 99 mmol/L (98-107); Estimated GFR 6; Globulin 3.4 g/dL (2.4-3.5); Glucose 159 mg/dL (83-110); Lipase 29 U/L (8-78); Potassium 4.3 mmol/L (3.5-5.1); Protein, Total 7.2 g/dL (5.8-8.1); Sodium 138 mmol/L (136-145)
[2022-10-18 12:31] LABS: Eosinophils 3 % (0-10); Hypochromia SLIGHT = 6-15 cells (100X) (0-5/hpf); Lymphocytes 19 % (21-51); MDiff Complete? YES; Macrocytosis MODERATE=16-30 cells (100X) (0-5/hpf); Monocytes 12 % (0-10); Neutrophil 61 % (42-75); Ovalocytes SLIGHT = 2-5 cells (100X) (0-1/hpf); Platelet Morphology Comment Appears Adequate; Polychromasia SLIGHT = 2-3 cells (100X) (0-2/hpf); Reactive Lymphocytes 4 % (0-10)
[2022-10-18 12:43] LABS: CKMB 2.6 ng/mL (0-6.6)
[2022-10-18] MEDS ORDERED: Dextrose 5% in Water 1,000 ML IV PRN (14:05)
[2022-10-18] MEDS ORDERED: Dextrose 50% Abboject 50 ML SYRINGE SLOW IVP PRN (14:05)
[2022-10-18] MEDS ORDERED: HumaLOG 300 UNITS/3 ML VIAL SC PRN (14:05)
[2022-10-18] MEDS ORDERED: Ondansetron PF 4 MG/2 ML Vial IVP PRN (14:05)
[2022-10-18] MEDS ORDERED: Senokot S 8.6-50 MG TAB PO PRN (14:05)
[2022-10-18 14:47] LABS: HBSAg Index 0.29 S/CO (0-0.99); Hep B Core Total Ab Non-Reactive (NonReactive); Hep B Core Total Index 0.09 S/CO (0-0.79); Hep B Surf Ag Non-Reactive S/CO (NonReactive); Hep C IgG Ab Non-Reactive (NonReactive); Hep C Index 0.06 S/CO (0-0.79)
[2022-10-18 14:52] LABS: HBSAB Concentration 900.16 mIU/mL; Hep B Surf AB Reactive (NonReactive)
[2022-10-18] MEDS: Midodrine HCl 5 MG TAB PO SCH ×2 (15:29→21:09)
[2022-10-18 17:09] LABS: Troponin I 0.074 ng/mL (< 0.028)
[2022-10-18 19:26] VITALS: BMI 24.3
[2022-10-18] MEDS: Mometasone 100 MCG/Formoterol 5 MCG 120 PUFF INHALER INH SCH (20:05)
[2022-10-18] MEDS: clonazePAM 0.5 MG TAB PO SCH (21:09)
[2022-10-18] MEDS: Ascorbic Acid 500 mg Chewable Tablet PO SCH (21:09)
[2022-10-18] MEDS: Atorvastatin Calcium 40 MG TAB PO SCH (21:10)
[2022-10-19 01:12] LABS: SARS-CoV-2 NAA Rapid Test Not Detected (NotDetected)
[2022-10-19 04:25] LABS: Anion Gap 11 mmol/L (10-20); BUN (Urea Nitrogen) 15 mg/dL (9.8-20.1); Calc. Creatinine Clearance 12 mL/min (70-130); Calcium 8.4 mg/dL (7.8-10.44); Carbon Dioxide 30 mmol/L (23-31); Chloride 99 mmol/L (98-107); Estimated GFR 11; Glucose 125 mg/dL (83-110); Potassium 4.2 mmol/L (3.5-5.1); Sodium 136 mmol/L (136-145)
[2022-10-19 05:47] LABS: Eosinophils 3 % (0-10); Hemoglobin 9.5 g/dL (12.0-16.0); Hypochromia SLIGHT = 6-15 cells (100X) (0-5/hpf); Lymphocytes 14 % (21-51); MDiff Complete? YES; Macrocytosis MODERATE=16-30 cells (100X) (0-5/hpf); Mean Corpuscular HGB CONC 30.1 g/dL (32.0-36.0); Mean Corpuscular Hemoglobin 33.3 pg (27.0-31.0); Mean Platelet Volume 8.1 fL (7.4-10.4); Monocytes 17 % (0-10); Neutrophil 64 % (42-75); Ovalocytes SLIGHT = 2-5 cells (100X) (0-1/hpf); Platelet Count 147 10x3/uL (130-400); Platelet Morphology Comment Appears Adequate; Polychromasia SLIGHT = 2-3 cells (100X) (0-2/hpf); Red Blood Cell (RBC) Count 2.84 mill/uL (4.20-5.40)
[2022-10-19] MEDS: Mometasone 100 MCG/Formoterol 5 MCG 120 PUFF INHALER INH SCH ×2 (08:01→18:29)
[2022-10-19] MEDS ORDERED: Heparin 10,000 UNITS/ 10 ML VIAL ONE (08:47)
[2022-10-19] MEDS: Ezetimibe 10 MG TAB PO SCH (09:04)
[2022-10-19] MEDS: Amiodarone 200 MG TAB PO SCH (09:05)
[2022-10-19] MEDS: Ascorbic Acid 500 mg Chewable Tablet PO SCH ×2 (09:05→20:43)
[2022-10-19] MEDS: Clopidogrel Bisulfate 75 MG TAB PO SCH (09:05)
[2022-10-19] MEDS: Midodrine HCl 5 MG TAB PO SCH ×3 (09:05→20:43)
[2022-10-19] MEDS: Cyanocobalamin (Vitamin B-12) 1,000 MCG TAB PO SCH (09:05)
[2022-10-19] MEDS: Cholecalciferol 1,000 UNITS (25 MCG) TAB PO SCH (09:05)
[2022-10-19] MEDS: Acetaminophen 325 MG TAB PO PRN ×2 (11:05→23:25)
[2022-10-19] MEDS: Heparin 5,000 UNITS/ML VIAL SC SCH (20:43)
[2022-10-19] MEDS: Atorvastatin Calcium 40 MG TAB PO SCH (20:43)
[2022-10-19] MEDS: clonazePAM 0.5 MG TAB PO SCH (20:44)
[2022-10-19] MEDS: Ondansetron ODT 4 MG TAB PO PRN (23:27)
[2022-10-20] MEDS ORDERED: Lactated Ringer's 500 ML IV SCH (02:30)
[2022-10-20 04:23] LABS: Anion Gap 16 mmol/L (10-20); BUN (Urea Nitrogen) 12 mg/dL (9.8-20.1); Calc. Creatinine Clearance 17 mL/min (70-130); Calcium 8.5 mg/dL (7.8-10.44); Carbon Dioxide 26 mmol/L (23-31); Chloride 99 mmol/L (98-107); Estimated GFR 15; Glucose 169 mg/dL (83-110); Potassium 4.3 mmol/L (3.5-5.1); Sodium 137 mmol/L (136-145)
[2022-10-20 04:29] LABS: Band 3 % (5-11); Eosinophils 2 % (0-10); Lymphocytes 32 % (21-51); MDiff Complete? YES; Mean Corpuscular HGB CONC 30.9 g/dL (32.0-36.0); Mean Corpuscular Hemoglobin 34.8 pg (27.0-31.0); Mean Platelet Volume 7.9 fL (7.4-10.4); Monocytes 17 % (0-10); Neutrophil 46 % (42-75); Platelet Count 135 10x3/uL (130-400); RBC Distribution Width 14.1 % (11.5-14.5); Red Blood Cell (RBC) Count 2.59 mill/uL (4.20-5.40)
[2022-10-20] MEDS: Mometasone 100 MCG/Formoterol 5 MCG 120 PUFF INHALER INH SCH ×2 (07:10→19:10)
[2022-10-20] MEDS: Ezetimibe 10 MG TAB PO SCH (08:16)
[2022-10-20] MEDS: Cyanocobalamin (Vitamin B-12) 1,000 MCG TAB PO SCH (08:16)
[2022-10-20] MEDS: Clopidogrel Bisulfate 75 MG TAB PO SCH (08:16)
[2022-10-20] MEDS: Amiodarone 200 MG TAB PO SCH (08:17)
[2022-10-20] MEDS: Cholecalciferol 1,000 UNITS (25 MCG) TAB PO SCH (08:18)
[2022-10-20] MEDS: Midodrine HCl 5 MG TAB PO SCH ×3 (08:18→21:01)
[2022-10-20] MEDS: Ascorbic Acid 500 mg Chewable Tablet PO SCH ×2 (08:19→21:00)
[2022-10-20] MEDS: Heparin 5,000 UNITS/ML VIAL SC SCH ×3 (08:19→21:01)
[2022-10-20] MEDS ORDERED: Heparin 10,000 UNITS/ 10 ML VIAL ONE (08:46)
[2022-10-20] MEDS: Acetaminophen 325 MG TAB PO PRN ×2 (09:03→21:00)
[2022-10-20] MEDS: Ondansetron ODT 4 MG TAB PO PRN (09:03)
[2022-10-20] MEDS: Atorvastatin Calcium 40 MG TAB PO SCH (21:01)
[2022-10-20] MEDS: clonazePAM 0.5 MG TAB PO SCH (21:01)
[2022-10-21] MEDS: Acetaminophen 325 MG TAB PO PRN ×2 (06:47→21:06)
[2022-10-21] MEDS: Mometasone 100 MCG/Formoterol 5 MCG 120 PUFF INHALER INH SCH ×2 (07:00→20:06)
[2022-10-21] MEDS: Ondansetron ODT 4 MG TAB PO PRN ×2 (09:13→22:51)
[2022-10-21] MEDS: Cyanocobalamin (Vitamin B-12) 1,000 MCG TAB PO SCH (09:14)
[2022-10-21] MEDS: Amiodarone 200 MG TAB PO SCH (09:14)
[2022-10-21] MEDS: Ascorbic Acid 500 mg Chewable Tablet PO SCH ×2 (09:15→20:20)
[2022-10-21] MEDS: Clopidogrel Bisulfate 75 MG TAB PO SCH (09:15)
[2022-10-21] MEDS: Ezetimibe 10 MG TAB PO SCH (09:15)
[2022-10-21] MEDS: Midodrine HCl 5 MG TAB PO SCH ×3 (09:16→20:19)
[2022-10-21] MEDS: Heparin 5,000 UNITS/ML VIAL SC SCH ×3 (09:17→20:20)
[2022-10-21] MEDS: Cholecalciferol 1,000 UNITS (25 MCG) TAB PO SCH (09:17)
[2022-10-21 11:08] LABS: #Basophils 0.1 thou/uL (0.0-0.2); #Eosinphils 0.2 thou/uL (0.0-0.7); #Lymphocytes 0.6 thou/uL (1.20-3.40); #Monocytes 0.7 thou/uL (0.11-0.59); #Neutrophils 3.3 thou/uL (1.40-6.50); %Eosinophils 4.9 % (0.0-10.0); %Lymphocytes 12.4 % (21.0-51.0); %Monocytes 14.3 % (0.0-10.0); %Neutrophils 67.5 % (42.0-75.0); Hemoglobin 9.9 g/dL (12.0-16.0); Mean Corpuscular HGB CONC 30.3 g/dL (32.0-36.0); Mean Corpuscular Hemoglobin 34.4 pg (27.0-31.0); Mean Platelet Volume 7.8 fL (7.4-10.4); Platelet Count 143 10x3/uL (130-400); RBC Distribution Width 14.2 % (11.5-14.5); Red Blood Cell (RBC) Count 2.88 mill/uL (4.20-5.40); White Blood Cell (WBC) Count 4.8 10x3/uL (4.8-10.8)
[2022-10-21 11:28] LABS: Anion Gap 15 mmol/L (10-20); BUN (Urea Nitrogen) 14 mg/dL (9.8-20.1); Calc. Creatinine Clearance 14 mL/min (70-130); Calcium 8.5 mg/dL (7.8-10.44); Carbon Dioxide 26 mmol/L (23-31); Chloride 98 mmol/L (98-107); Estimated GFR 12; Glucose 289 mg/dL (83-110); Potassium 4.2 mmol/L (3.5-5.1); Sodium 135 mmol/L (136-145)
[2022-10-21] MEDS: HumaLOG 300 UNITS/3 ML VIAL SC PRN ×2 (12:57→17:11)
[2022-10-21] MEDS: clonazePAM 0.5 MG TAB PO SCH (20:19)
[2022-10-21] MEDS: Atorvastatin Calcium 40 MG TAB PO SCH (20:20)
[2022-10-21] MEDS ORDERED: Diclofenac 1% 100 GM GEL TP SCH (22:00)
[2022-10-22 05:22] LABS: ALT (SGPT) 9 U/L (8-55); AST (SGOT) 20 U/L (5-34); Albumin 3.3 g/dL (3.4-4.8); Alkaline Phosphatase 67 U/L (40-110); Anion Gap 15 mmol/L (10-20); BUN (Urea Nitrogen) 21 mg/dL (9.8-20.1); Bilirubin, Total 0.6 mg/dL (0.2-1.2); Calc. Creatinine Clearance 12 mL/min (70-130); Calcium 8.7 mg/dL (7.8-10.44); Carbon Dioxide 27 mmol/L (23-31); Chloride 97 mmol/L (98-107); Estimated GFR 10; Glucose 189 mg/dL (83-110); Potassium 4.4 mmol/L (3.5-5.1); Protein, Total 6.3 g/dL (5.8-8.1); Sodium 135 mmol/L (136-145)
[2022-10-22 05:37] LABS: Band 6 % (5-11); Eosinophils 5 % (0-10); Hemoglobin 9.4 g/dL (12.0-16.0); Lymphocytes 27 % (21-51); MDiff Complete? YES; Mean Corpuscular HGB CONC 30.7 g/dL (32.0-36.0); Mean Corpuscular Hemoglobin 34.5 pg (27.0-31.0); Mean Platelet Volume 8.1 fL (7.4-10.4); Monocytes 14 % (0-10); Neutrophil 47 % (42-75); Platelet Count 134 10x3/uL (130-400); RBC Distribution Width 14.2 % (11.5-14.5); Red Blood Cell (RBC) Count 2.71 mill/uL (4.20-5.40); White Blood Cell (WBC) Count 5.1 10x3/uL (4.8-10.8)
[2022-10-22] MEDS: Mometasone 100 MCG/Formoterol 5 MCG 120 PUFF INHALER INH SCH ×2 (07:18→19:49)
[2022-10-22] MEDS ORDERED: Non-Formulary Item 1 EACH (Insulin Detemir [Levemir] 100 UNIT/ML Vial) SQ PRN (10:20)
[2022-10-22] MEDS: Ascorbic Acid 500 mg Chewable Tablet PO SCH ×2 (10:58→21:50)
[2022-10-22] MEDS: Cholecalciferol 1,000 UNITS (25 MCG) TAB PO SCH (10:58)
[2022-10-22] MEDS: Clopidogrel Bisulfate 75 MG TAB PO SCH (10:58)
[2022-10-22] MEDS: Amiodarone 200 MG TAB PO SCH (10:58)
[2022-10-22] MEDS: Midodrine HCl 5 MG TAB PO SCH ×3 (10:59→21:51)
[2022-10-22] MEDS: Ezetimibe 10 MG TAB PO SCH (10:59)
[2022-10-22] MEDS: Cyanocobalamin (Vitamin B-12) 1,000 MCG TAB PO SCH (10:59)
[2022-10-22] MEDS: Heparin 5,000 UNITS/ML VIAL SC SCH ×3 (11:08→21:49)
[2022-10-22] MEDS: HumaLOG 300 UNITS/3 ML VIAL SC PRN ×2 (11:08→17:49)
[2022-10-22] MEDS: Acetaminophen 325 MG TAB PO PRN ×3 (11:19→21:50)
[2022-10-22] MEDS ORDERED: Lactated Ringer's 500 ML IV SCH ×2 (13:30→15:15)
[2022-10-22] MEDS ORDERED: Transdermal Patch Removal TOP PRN (15:07)
[2022-10-22] MEDS: Lidocaine 5% Patch TD PRN (15:42)
[2022-10-22] MEDS: clonazePAM 0.5 MG TAB PO SCH (21:50)
[2022-10-22] MEDS: Insulin Glargine 30 UNITS/0.3 ML VIAL SC SCH (21:51)
[2022-10-22] MEDS: Atorvastatin Calcium 40 MG TAB PO SCH (21:51)
[2022-10-23 05:31] LABS: ALT (SGPT) 10 U/L (8-55); AST (SGOT) 21 U/L (5-34); Albumin 3.3 g/dL (3.4-4.8); Alkaline Phosphatase 66 U/L (40-110); Anion Gap 18 mmol/L (10-20); BUN (Urea Nitrogen) 26 mg/dL (9.8-20.1); Bilirubin, Total 0.6 mg/dL (0.2-1.2); Calc. Creatinine Clearance 10 mL/min (70-130); Calcium 8.6 mg/dL (7.8-10.44); Carbon Dioxide 24 mmol/L (23-31); Chloride 96 mmol/L (98-107); Estimated GFR 8; Globulin 3.1 g/dL (2.4-3.5); Glucose 197 mg/dL (83-110); Potassium 4.8 mmol/L (3.5-5.1); Protein, Total 6.4 g/dL (5.8-8.1); Sodium 133 mmol/L (136-145)
[2022-10-23 05:46] LABS: Eosinophils 6 % (0-10); Hemoglobin 9.2 g/dL (12.0-16.0); Lymphocytes 17 % (21-51); MDiff Complete? YES; Macrocytosis SLIGHT = 6-15 cells (100X) (0-5/hpf); Mean Corpuscular HGB CONC 30.7 g/dL (32.0-36.0); Mean Corpuscular Hemoglobin 34.1 pg (27.0-31.0); Mean Platelet Volume 9.1 fL (7.4-10.4); Monocytes 12 % (0-10); Neutrophil 65 % (42-75); Platelet Count 132 10x3/uL (130-400); RBC Distribution Width 14.5 % (11.5-14.5); Red Blood Cell (RBC) Count 2.69 mill/uL (4.20-5.40)
[2022-10-23] MEDS: Acetaminophen 325 MG TAB PO PRN ×3 (06:42→21:21)
[2022-10-23] MEDS: HumaLOG 300 UNITS/3 ML VIAL SC PRN (06:42)
[2022-10-23] MEDS: Mometasone 100 MCG/Formoterol 5 MCG 120 PUFF INHALER INH SCH ×2 (07:25→18:46)
[2022-10-23] MEDS ORDERED: EPOETIN ALFA-EPBX (ESRD) 10,000 UNIT/ML VIAL SC SCH (09:45)
[2022-10-23] MEDS: Heparin 5,000 UNITS/ML VIAL SC SCH ×3 (11:17→21:21)
[2022-10-23] MEDS: Cyanocobalamin (Vitamin B-12) 1,000 MCG TAB PO SCH (11:18)
[2022-10-23] MEDS: Ascorbic Acid 500 mg Chewable Tablet PO SCH ×2 (11:18→21:22)
[2022-10-23] MEDS: Clopidogrel Bisulfate 75 MG TAB PO SCH (11:18)
[2022-10-23] MEDS: Ezetimibe 10 MG TAB PO SCH (11:18)
[2022-10-23] MEDS: Cholecalciferol 1,000 UNITS (25 MCG) TAB PO SCH (11:19)
[2022-10-23] MEDS: Midodrine HCl 5 MG TAB PO SCH ×3 (11:19→21:22)
[2022-10-23] MEDS: Amiodarone 200 MG TAB PO SCH (11:19)
[2022-10-23] MEDS ORDERED: Heparin 10,000 UNITS/ 10 ML VIAL ONE (15:05)
[2022-10-23] MEDS: Lidocaine 5% Patch TD PRN (16:49)
[2022-10-23] MEDS: Benzonatate 100 MG CAP PO PRN (18:31)
[2022-10-23] MEDS: Insulin Glargine 30 UNITS/0.3 ML VIAL SC SCH (21:21)
[2022-10-23] MEDS: Atorvastatin Calcium 40 MG TAB PO SCH (21:22)
[2022-10-23] MEDS: clonazePAM 0.5 MG TAB PO SCH (21:22)
[2022-10-23] MEDS: Senokot S 8.6-50 MG TAB PO SCH (21:22)
[2022-10-24] MEDS: Benzonatate 100 MG CAP PO PRN ×3 (02:31→20:17)
[2022-10-24] MEDS: Acetaminophen 325 MG TAB PO PRN ×3 (02:31→20:23)
[2022-10-24 05:22] LABS: ALT (SGPT) 10 U/L (8-55); AST (SGOT) 22 U/L (5-34); Albumin 3.4 g/dL (3.4-4.8); Alkaline Phosphatase 67 U/L (40-110); Anion Gap 12 mmol/L (10-20); BUN (Urea Nitrogen) 12 mg/dL (9.8-20.1); Bilirubin, Total 0.6 mg/dL (0.2-1.2); Calc. Creatinine Clearance 17 mL/min (70-130); Calcium 8.6 mg/dL (7.8-10.44); Carbon Dioxide 29 mmol/L (23-31); Chloride 98 mmol/L (98-107); Estimated GFR 15; Protein, Total 6.4 g/dL (5.8-8.1); Sodium 135 mmol/L (136-145)
[2022-10-24 05:24] LABS: Glucose 37 mg/dL (83-110)
[2022-10-24] MEDS ORDERED: Diclofenac 1% 100 GM GEL TP PRN (05:54)
[2022-10-24] MEDS: Mometasone 100 MCG/Formoterol 5 MCG 120 PUFF INHALER INH SCH ×2 (07:18→18:41)
[2022-10-24] MEDS: Heparin 5,000 UNITS/ML VIAL SC SCH ×3 (09:24→20:11)
[2022-10-24] MEDS: Midodrine HCl 5 MG TAB PO SCH ×3 (09:24→20:10)
[2022-10-24] MEDS: Clopidogrel Bisulfate 75 MG TAB PO SCH (09:24)
[2022-10-24] MEDS: Senokot S 8.6-50 MG TAB PO SCH ×2 (09:24→20:11)
[2022-10-24] MEDS: Ezetimibe 10 MG TAB PO SCH (09:25)
[2022-10-24] MEDS: Cholecalciferol 1,000 UNITS (25 MCG) TAB PO SCH (09:25)
[2022-10-24] MEDS: Amiodarone 200 MG TAB PO SCH (09:25)
[2022-10-24] MEDS: Cyanocobalamin (Vitamin B-12) 1,000 MCG TAB PO SCH (09:25)
[2022-10-24] MEDS: Ascorbic Acid 500 mg Chewable Tablet PO SCH ×2 (09:26→20:11)
[2022-10-24 19:36] VITALS: BP 105/39; TEMP 97.4
[2022-10-24] MEDS: Atorvastatin Calcium 40 MG TAB PO SCH (20:10)
[2022-10-24] MEDS: clonazePAM 0.5 MG TAB PO SCH (20:11)
[2022-10-30] MEDS ORDERED: EPOETIN ALFA-EPBX (ESRD) 10,000 UNIT/ML VIAL SC SCH (09:00)
== END 2022-10-24 21:00 | DRG 189 ==
LOC: ERS 11:23 → 2NO 15:06 → OBSVTOIN 10-19 10:46
PROVIDERS: ADMIT Internal Medicine; ATTEND Family Medicine
PROC: 5A1D70Z Performance of Urinary Filtration, Intermittent, Less than 6 Hours Per Day (ICD-10-PCS; principal; 2022-10-23)
DX: J96.21 Acute and chronic respiratory failure with hypoxia (principal); N18.6 End stage renal disease; I12.0 Hypertensive chronic kidney disease with stage 5 chronic kidney disease or end stage renal disease; I48.20 Chronic atrial fibrillation, unspecified; J90 Pleural effusion, not elsewhere classified; Z20.822 Contact with and (suspected) exposure to COVID-19; R79.89 Other specified abnormal findings of blood chemistry; D63.1 Anemia in chronic kidney disease; E11.22 Type 2 diabetes mellitus with diabetic chronic kidney disease; E78.5 Hyperlipidemia, unspecified; I25.10 Atherosclerotic heart disease of native coronary artery without angina pectoris; R53.81 Other malaise; Z96.642 Presence of left artificial hip joint; R13.10 Dysphagia, unspecified; Z60.2 Problems related to living alone; I95.9 Hypotension, unspecified; E11.649 Type 2 diabetes mellitus with hypoglycemia without coma; E87.70 Fluid overload, unspecified; Z88.8 Allergy status to other drugs, medicaments and biological substances; Z99.2 Dependence on renal dialysis; Z99.81 Dependence on supplemental oxygen; Z88.2 Allergy status to sulfonamides; Z79.02 Long term (current) use of antithrombotics/antiplatelets; Z79.4 Long term (current) use of insulin; Z79.899 Other long term (current) drug therapy; Z85.038 Personal history of other malignant neoplasm of large intestine; Z95.1 Presence of aortocoronary bypass graft; Z98.41 Cataract extraction status, right eye; Z98.42 Cataract extraction status, left eye; Z90.49 Acquired absence of other specified parts of digestive tract; Z90.710 Acquired absence of both cervix and uterus
CPT/HCPCS: 36415; 36416; 71045; 74230; 80048; 80053; 82553; 83690; 83880; 84484; 85025; 86704; 87340; 90935; 93005; 94640; 94760; G0257; G0378; J1644; J1815; J2405; J7120; J7620; Q0162; Q5105

== ENCOUNTER 2022-10-26 22:33 | Inpatient (IN) | payer MEDICARE, MEDICAID ==
[2022-10-26 23:47] LABS: Hemoglobin 10.1 g/dL (12.0-16.0); Mean Platelet Volume 7.8 fL (7.4-10.4); Platelet Count 179 10x3/uL (130-400); RBC Distribution Width 14.9 % (11.5-14.5); Red Blood Cell (RBC) Count 2.87 mill/uL (4.20-5.40); White Blood Cell (WBC) Count 5.5 10x3/uL (4.8-10.8)
[2022-10-26 23:55] LABS: ALT (SGPT) 10 U/L (8-55); AST (SGOT) 23 U/L (5-34); Albumin 3.6 g/dL (3.4-4.8); Alkaline Phosphatase 78 U/L (40-110); Anion Gap 17 mmol/L (10-20); BUN (Urea Nitrogen) 15 mg/dL (9.8-20.1); Bilirubin, Total 0.6 mg/dL (0.2-1.2); Calc. Creatinine Clearance 0 mL/min (70-130); Calcium 9.2 mg/dL (7.8-10.44); Carbon Dioxide 26 mmol/L (23-31); Chloride 95 mmol/L (98-107); Estimated GFR 12; Globulin 3.4 g/dL (2.4-3.5); Glucose 160 mg/dL (83-110); Potassium 4.3 mmol/L (3.5-5.1); Sodium 134 mmol/L (136-145)
[2022-10-27 00:05] LABS: Anisocytosis SLIGHT = 6-15 cells (100X) (0-5/hpf); Band 6 % (5-11); Burr Cells SLIGHT = 2-5 cells (100X) (0-1/hpf); Eosinophils 3 % (0-10); Lymphocytes 13 % (21-51); MDiff Complete? YES; Macrocytosis MODERATE=16-30 cells (100X) (0-5/hpf); Monocytes 17 % (0-10); Neutrophil 60 % (42-75); Nucleated RBC 1 % (0); Ovalocytes SLIGHT = 2-5 cells (100X) (0-1/hpf); Platelet Morphology Comment Appears Adequate
[2022-10-27 00:17] LABS: CKMB 4.2 ng/mL (0-6.6)
[2022-10-27] MEDS ORDERED: NOREPINEPHRINE 8 MG/250 ML-D5W 250 ML ONE (00:47)
[2022-10-27] MEDS ORDERED: Dextrose 5% in Water 1,000 ML IV PRN (03:23)
[2022-10-27] MEDS ORDERED: Dextrose 50% Abboject 50 ML SYRINGE SLOW IVP PRN (03:23)
[2022-10-27] MEDS ORDERED: Acetaminophen 325 MG TAB PO PRN (03:27)
[2022-10-27] MEDS ORDERED: Acetaminophen 650 MG Suppository PR PRN (03:27)
[2022-10-27 03:32] LABS: Troponin I 0.075 ng/mL (< 0.028)
[2022-10-27] MEDS ORDERED: Albuterol Sulfate 1.25 MG/3 ML NEB NEB PRN (04:07)
[2022-10-27 05:12] VITALS: BMI 26.6
[2022-10-27 06:43] LABS: Troponin I 0.081 ng/mL (< 0.028)
[2022-10-27] MEDS: Albuterol Sulfate 2.5 mg/3 ml Neb NEB SCH ×4 (07:10→23:26)
[2022-10-27] MEDS: Mometasone 100 MCG/Formoterol 5 MCG 120 PUFF INHALER INH SCH ×2 (07:14→18:42)
[2022-10-27] MEDS ORDERED: Midodrine HCl 5 MG TAB PO SCH (09:00)
[2022-10-27 09:31] LABS: Actual Bicarbonate (HCO3v) 25 mEq/L (22-28); Base Excess -1.5 mEq/L (-2.0 to +3.0); Chloride (VBG) 96 mmol/L (98-106); Hemoglobin (Hb) 11.4 g/dL (11.7-16.1); Potassium (VBG) 3.67 mmol/L (3.70-5.30); Sodium 133.8 mmol/L (133-146); pH (venous) 7.34 (7.32-7.43)
[2022-10-27] MEDS ORDERED: Heparin 10,000 UNITS/ 10 ML VIAL ONE (09:55)
[2022-10-27 10:57] LABS: Actual Bicarbonate (HCO3v) 25 mEq/L (22-28); Base Excess -1.1 mEq/L (-2.0 to +3.0); Calcium, Ionized (venous) 1.09 mmol/L (1.16-1.32); Chloride (VBG) 96 mmol/L (98-106); Hemoglobin (Hb) 11.5 g/dL (11.7-16.1); pH (venous) 7.34 (7.32-7.43)
[2022-10-27] MEDS: NOREPINEPHRINE 8 MG/250 ML-D5W 250 ML IVPB PRN ×2 (11:00→15:12)
[2022-10-27] MEDS ORDERED: Nitroglycerin 0.4 MG TAB 1 EACH SL PRN (12:04)
[2022-10-27] MEDS ORDERED: Aspirin Chewable 81 MG TAB ONE (12:06)
[2022-10-27] MEDS: Ondansetron PF 4 MG/2 ML Vial IVP SCH ×2 (12:07→18:20)
[2022-10-27] MEDS: Clopidogrel Bisulfate 75 MG TAB PO SCH (12:11)
[2022-10-27] MEDS: Heparin 5,000 UNITS/ML VIAL SC SCH ×3 (12:11→20:15)
[2022-10-27] MEDS: Amiodarone 200 MG TAB PO SCH (12:12)
[2022-10-27] MEDS ORDERED: Aspirin 81 mg Enteric Coated Tablet PO SCH (12:15)
[2022-10-27] MEDS: Vasopressin 20 UNIT, Admixture Fee 1 EACH in Sodium Chloride 0.9% 50 ML IV SCH ×2 (12:30→18:41)
[2022-10-27] MEDS ORDERED: Nitroglycerin 0.4 MG TAB (25 Tab Bottle) SL PRN (12:30)
[2022-10-27] MEDS: Ezetimibe 10 MG TAB PO SCH (12:54)
[2022-10-27] MEDS: Cholecalciferol 1,000 UNITS (25 MCG) TAB PO SCH (12:54)
[2022-10-27] MEDS: Atorvastatin Calcium 40 MG TAB PO SCH (12:54)
[2022-10-27] MEDS: Ascorbic Acid 500 mg Chewable Tablet PO SCH ×2 (12:54→20:15)
[2022-10-27] MEDS: Cyanocobalamin (Vitamin B-12) 1,000 MCG TAB PO SCH (12:54)
[2022-10-27] MEDS ORDERED: Benzonatate 100 MG CAP PO PRN (13:09)
[2022-10-27] MEDS ORDERED: Hydrocortisone Sod Succ/PF 100 mg/2 ml Vial ONE (13:10)
[2022-10-27 13:25] LABS: Actual Bicarbonate (HCO3v) 24 mEq/L (22-28); Base Excess -3.1 mEq/L (-2.0 to +3.0); Calcium, Ionized (venous) 1.08 mmol/L (1.16-1.32); Chloride (VBG) 96 mmol/L (98-106); Hemoglobin (Hb) 11.8 g/dL (11.7-16.1); Potassium (VBG) 3.93 mmol/L (3.70-5.30); Sodium 132.1 mmol/L (133-146)
[2022-10-27] MEDS ORDERED: Phenylephrine 40 MG/NS 250 ML 40 MG in Premix Bag 1 BAG IVPB SCH (13:45)
[2022-10-27] MEDS ORDERED: Morphine 4 MG/ML VIAL SLOW IVP PRN (13:45)
[2022-10-27] MEDS ORDERED: Morphine 4 MG/ML VIAL ONE (13:46)
[2022-10-27 13:54] LABS: Troponin I 0.209 ng/mL (< 0.028)
[2022-10-27] MEDS ORDERED: Magnesium 2 GM/50 ML(in water) 2 GM in Premix Bag 1 BAG IVPB SCH (14:00)
[2022-10-27] MEDS: cefTRIAXone\\ROCEPHIN 2 GM in Sodium Chloride 0.9% 100 ML IVPB SCH (16:25)
[2022-10-27] MEDS: HYDROcodone/Acetaminophen 10/325 mg Tablet PO PRN (16:31)
[2022-10-27] MEDS: Midodrine HCl 5 MG TAB PO SCH ×2 (16:33→20:15)
[2022-10-27 16:49] LABS: Pleural Fluid, Protein 1.9 g/dL; RBC Count-Automated (BF) 3057 /cu.mm; WBC/Nucleated-Auto (BF) 115 /cu.mm
[2022-10-27 17:26] LABS: BF Color Yellow; Body Fluid Source Pleural Fluid; Clarity Hazy (Clear); Tube # EDTA
[2022-10-27 17:29] LABS: BF Segmented Neutrophils 19 %; Cell Count Non Hematic 42 %; Eosinophils 1 %; Lymphocytes 37 %
[2022-10-27] MEDS: guaiFENesin ER 600 MG TAB PO SCH (20:15)
[2022-10-27] MEDS: Norepinephrine 16 MG in Dextrose 5% in Water 234 ML IVPB PRN (20:16)
[2022-10-28] MEDS: Ondansetron PF 4 MG/2 ML Vial IVP SCH ×4 (00:01→18:53)
[2022-10-28] MEDS: HYDROcodone/Acetaminophen 10/325 mg Tablet PO PRN (01:23)
[2022-10-28] MEDS: Vasopressin 20 UNIT, Admixture Fee 1 EACH in Sodium Chloride 0.9% 50 ML IV SCH (03:08)
[2022-10-28] MEDS: Norepinephrine 16 MG in Dextrose 5% in Water 234 ML IVPB PRN ×3 (03:08→18:50)
[2022-10-28 04:33] LABS: #Lymphocytes 0.8 thou/uL (1.20-3.40); #Monocytes 1.5 thou/uL (0.11-0.59); #Neutrophils 8.8 thou/uL (1.40-6.50); %Basophils 0.1 % (0.0-1.0); %Eosinophils 0.4 % (0.0-10.0); %Lymphocytes 7.5 % (21.0-51.0); %Monocytes 13.1 % (0.0-10.0); %Neutrophils 78.9 % (42.0-75.0); Hemoglobin 11.9 g/dL (12.0-16.0); Mean Corpuscular HGB CONC 31.2 g/dL (32.0-36.0); Mean Corpuscular Hemoglobin 35.8 pg (27.0-31.0); Mean Platelet Volume 7.8 fL (7.4-10.4); Platelet Count 247 10x3/uL (130-400); RBC Distribution Width 15.1 % (11.5-14.5); Red Blood Cell (RBC) Count 3.33 mill/uL (4.20-5.40); White Blood Cell (WBC) Count 11.2 10x3/uL (4.8-10.8)
[2022-10-28 04:53] LABS: ALT (SGPT) 37 U/L (8-55); AST (SGOT) 85 U/L (5-34); Albumin 3.5 g/dL (3.4-4.8); Alkaline Phosphatase 79 U/L (40-110); Anion Gap 25 mmol/L (10-20); BUN (Urea Nitrogen) 12 mg/dL (9.8-20.1); Calc. Creatinine Clearance 16 mL/min (70-130); Calcium 9.2 mg/dL (7.8-10.44); Carbon Dioxide 19 mmol/L (23-31); Chloride 94 mmol/L (98-107); Estimated GFR 14; Globulin 3.5 g/dL (2.4-3.5); Glucose 187 mg/dL (83-110); Potassium 4.9 mmol/L (3.5-5.1); Sodium 133 mmol/L (136-145)
[2022-10-28] MEDS: Mometasone 100 MCG/Formoterol 5 MCG 120 PUFF INHALER INH SCH ×2 (07:19→18:37)
[2022-10-28] MEDS: Albuterol Sulfate 2.5 mg/3 ml Neb NEB SCH ×4 (07:19→23:19)
[2022-10-28] MEDS: Atorvastatin Calcium 40 MG TAB PO SCH (09:00)
[2022-10-28] MEDS: Cyanocobalamin (Vitamin B-12) 1,000 MCG TAB PO SCH (09:00)
[2022-10-28] MEDS: Clopidogrel Bisulfate 75 MG TAB PO SCH (09:00)
[2022-10-28] MEDS: Cholecalciferol 1,000 UNITS (25 MCG) TAB PO SCH (09:00)
[2022-10-28] MEDS: Midodrine HCl 5 MG TAB PO SCH ×3 (09:00→21:07)
[2022-10-28] MEDS: guaiFENesin ER 600 MG TAB PO SCH ×2 (09:00→23:34)
[2022-10-28] MEDS: Ascorbic Acid 500 mg Chewable Tablet PO SCH ×2 (09:00→21:08)
[2022-10-28] MEDS: Amiodarone 200 MG TAB PO SCH (09:00)
[2022-10-28] MEDS: Ezetimibe 10 MG TAB PO SCH (09:00)
[2022-10-28] MEDS ORDERED: Sodium Bicarb 50 MEQ/50 ML VIAL IVP SCH (09:15)
[2022-10-28] MEDS: Sodium Bicarb 50 MEQ/50 ML VIAL ONE ×4 (09:19→09:26)
[2022-10-28] MEDS: Sodium Bicarbonate 150 MEQ in Dextrose 5% in Water 1,000 ML IV SCH ×2 (10:09→21:45)
[2022-10-28] MEDS: Heparin 5,000 UNITS/ML VIAL SC SCH ×3 (10:54→22:55)
[2022-10-28] MEDS: Lidocaine 5% Patch TD SCH (10:54)
[2022-10-28] MEDS: Albumin 25% 25 GM/100 ML BOT IVPB SCH (10:58)
[2022-10-28] MEDS: Hydrocortisone Sod Succ/PF 100 mg/2 ml Vial IVP SCH ×3 (10:58→23:20)
[2022-10-28] MEDS ORDERED: Pantoprazole 40 MG VIAL IVP SCH (11:00)
[2022-10-28] MEDS ORDERED: PROPOFOL 200 MG/20 ML VIAL IV SCH (12:20)
[2022-10-28] MEDS ORDERED: PROPOFOL 200 MG/20 ML VIAL IVP SCH (13:00)
[2022-10-28 13:08] LABS: Actual Bicarbonate (HCO3a) 16.6 mEq/L (22-28); Base Excess (BEa) -10.3 mEq/L (-2.0 to +3.0); CO2 Tension 40.5 mmHg (35.0-45.0); Calcium, Ionized (arterial) 1.06 mmol/L (1.12-1.30); Carboxyhemoglobin (COHb) 0.3 gm% (0.0-3.0); Hemoglobin (Hb) 11.4 g/dL (12.0-16.0); O2 Tension (PaO2), arterial 145.2 mmHg (> 60.0); Potassium - ABG Lab 4.29 mmol/L (3.70-5.30); pH, Arterial 7.23 (7.35-7.45)
[2022-10-28 13:17] LABS: Puncture Site RRA
[2022-10-28 13:18] LABS: ALV-art Gradient 517.175 mmHg (0-20); Peep/CPAP 8.5 cmH2O
[2022-10-28] MEDS ORDERED: Fentanyl CADD 100 ML ONE (13:21)
[2022-10-28] MEDS ORDERED: Fentanyl CADD 100 ML IV SCH (13:30)
[2022-10-28] MEDS: cefTRIAXone\\ROCEPHIN 2 GM in Sodium Chloride 0.9% 100 ML IVPB SCH (14:31)
[2022-10-28 14:36] LABS: Actual Bicarbonate (HCO3a) 15.8 mEq/L (22-28); Base Excess (BEa) -15.3 mEq/L (-2.0 to +3.0); Calcium, Ionized (arterial) 1.15 mmol/L (1.12-1.30); Carboxyhemoglobin (COHb) 0.4 gm% (0.0-3.0); Hemoglobin (Hb) 12.6 g/dL (12.0-16.0); O2 Tension (PaO2), arterial 73.7 mmHg (> 60.0); Potassium - ABG Lab 4.98 mmol/L (3.70-5.30)
[2022-10-28 14:37] LABS: Puncture Site LRA; pH, Arterial 7.03 (7.35-7.45)
[2022-10-28] MEDS: HumaLOG 300 UNITS/3 ML VIAL SC PRN (16:59)
[2022-10-28] MEDS ORDERED: Amiodarone 450 MG, Admixture Fee 1 EACH in Dextrose 5% in Water 250 ML IVPB SCH (20:15)
[2022-10-28] MEDS ORDERED: Insulin Glargine 30 UNITS/0.3 ML VIAL SC SCH (21:00)
[2022-10-28] MEDS ORDERED: Transdermal Patch Removal TOP SCH (21:00)
[2022-10-28] MEDS ORDERED: Magnesium 2 GM/50 ML(in water) 2 GM in Premix Bag 1 BAG IVPB SCH (23:00)
[2022-10-29] MEDS: Vasopressin 20 UNIT, Admixture Fee 1 EACH in Sodium Chloride 0.9% 50 ML IV SCH ×2 (00:11→09:29)
[2022-10-29] MEDS: HumaLOG 300 UNITS/3 ML VIAL SC PRN (04:51)
[2022-10-29] MEDS: Hydrocortisone Sod Succ/PF 100 mg/2 ml Vial IVP SCH ×3 (04:51→12:03)
[2022-10-29] MEDS: Norepinephrine 16 MG in Dextrose 5% in Water 234 ML IVPB PRN (05:24)
[2022-10-29 05:28] LABS: ALT (SGPT) 993 U/L (8-55); AST (SGOT) 2815 U/L (5-34); Alkaline Phosphatase 84 U/L (40-110); Anion Gap 35 mmol/L (10-20); BUN (Urea Nitrogen) 19 mg/dL (9.8-20.1); Bilirubin, Total 1.3 mg/dL (0.2-1.2); Calc. Creatinine Clearance 14 mL/min (70-130); Carbon Dioxide 12 mmol/L (23-31); Chloride 88 mmol/L (98-107); Estimated GFR 11; Globulin 2.7 g/dL (2.4-3.5); Glucose 133 mg/dL (83-110); Magnesium 3.4 mg/dL (1.6-2.6); Protein, Total 5.7 g/dL (5.8-8.1); Sodium 129 mmol/L (136-145)
[2022-10-29 05:56] LABS: Potassium 6.3 mmol/L (3.5-5.1)
[2022-10-29] MEDS ORDERED: LOKELMA 10 GM PACKET PO SCH (06:00)
[2022-10-29 06:02] LABS: Anisocytosis SLIGHT = 6-15 cells (100X) (0-5/hpf); Band 15 % (5-11); Burr Cells SLIGHT = 2-5 cells (100X) (0-1/hpf); Eosinophils 1 % (0-10); Hemoglobin 10.3 g/dL (12.0-16.0); Hypochromia SLIGHT = 6-15 cells (100X) (0-5/hpf); Lymphocytes 15 % (21-51); MDiff Complete? YES; Macrocytosis MODERATE=16-30 cells (100X) (0-5/hpf); Mean Corpuscular HGB CONC 29.1 g/dL (32.0-36.0); Mean Corpuscular Hemoglobin 33.7 pg (27.0-31.0); Mean Platelet Volume 8.6 fL (7.4-10.4); Monocytes 4 % (0-10); Myelocyte 1 % (0-0); Neutrophil 64 % (42-75); Nucleated RBC 16 % (0); Ovalocytes SLIGHT = 2-5 cells (100X) (0-1/hpf); Platelet Count 198 10x3/uL (130-400); Platelet Morphology Comment Appears Adequate; Polychromasia SLIGHT = 2-3 cells (100X) (0-2/hpf); RBC Distribution Width 15.4 % (11.5-14.5); Red Blood Cell (RBC) Count 3.07 mill/uL (4.20-5.40)
[2022-10-29] MEDS ORDERED: Dextrose 50% Abboject 50 ML SYRINGE SLOW IVP SCH (06:15)
[2022-10-29] MEDS ORDERED: Calcium Gluc 4.6 MEQ/10 ML (100 MG/ML) SLOW IVP SCH (06:15)
[2022-10-29] MEDS ORDERED: Sodium Bicarb 50 MEQ/50 ML VIAL IVP SCH (06:15)
[2022-10-29] MEDS ORDERED: Insulin Regular 300 UNITS/3 ML VIAL IVP SCH (06:15)
[2022-10-29] MEDS ORDERED: Albuterol Sulfate 2.5 mg/3 ml Neb NEB SCH (06:15)
[2022-10-29 07:40] LABS: Calcium, Ionized (venous) 1.02 mmol/L (1.16-1.32); Chloride (VBG) 87 mmol/L (98-106); Potassium (VBG) 5.97 mmol/L (3.70-5.30); Sodium 128.8 mmol/L (133-146)
[2022-10-29 07:44] LABS: Actual Bicarbonate (HCO3v) 12 mEq/L (22-28); pH (venous) 6.96 (7.32-7.43)
[2022-10-29] MEDS: Albuterol Sulfate 2.5 mg/3 ml Neb NEB SCH (07:49)
[2022-10-29] MEDS: Mometasone 100 MCG/Formoterol 5 MCG 120 PUFF INHALER INH SCH ×2 (07:50→12:03)
[2022-10-29] MEDS ORDERED: Pantoprazole 40 MG VIAL IVP SCH (09:00)
[2022-10-29] MEDS ORDERED: GUAIFENESIN SF SOLN 200 MG/10 ML UDCUP PO SCH (09:00)
[2022-10-29] MEDS: Heparin 5,000 UNITS/ML VIAL SC SCH ×2 (09:23→12:03)
[2022-10-29] MEDS: Ascorbic Acid 500 mg Chewable Tablet PO SCH (09:24)
[2022-10-29] MEDS: Ezetimibe 10 MG TAB PO SCH (09:24)
[2022-10-29] MEDS: Amiodarone 200 MG TAB PO SCH (09:25)
[2022-10-29] MEDS: Clopidogrel Bisulfate 75 MG TAB PO SCH (09:25)
[2022-10-29] MEDS: Cholecalciferol 1,000 UNITS (25 MCG) TAB PO SCH (09:25)
[2022-10-29] MEDS: Cyanocobalamin (Vitamin B-12) 1,000 MCG TAB PO SCH (09:27)
[2022-10-29] MEDS: Sodium Bicarbonate 150 MEQ in Dextrose 5% in Water 1,000 ML IV SCH (09:27)
[2022-10-29] MEDS: Lidocaine 5% Patch TD SCH (09:28)
[2022-10-29] MEDS: Albumin 25% 25 GM/100 ML BOT IVPB SCH (09:28)
[2022-10-29] MEDS: Midodrine HCl 5 MG TAB PO SCH ×2 (09:28→12:03)
[2022-10-29 10:29] VITALS: TEMP 98.6
[2022-10-29] MEDS: cefTRIAXone\\ROCEPHIN 2 GM in Sodium Chloride 0.9% 100 ML IVPB SCH (12:02)
[2022-10-30] MEDS ORDERED: EPOETIN ALFA-EPBX (ESRD) 10,000 UNIT/ML VIAL SC SCH (09:00)
== END 2022-10-29 11:35 | disposition expired | DRG 208 ==
LOC: ERS 22:33 → ERHOLD 10-27 01:30 → CCU 10-27 04:26
PROVIDERS: ADMIT Family Medicine; ATTEND Family Medicine
PROC: 02H633Z Insertion of Infusion Device into Right Atrium, Percutaneous Approach (ICD-10-PCS; 2022-10-27)
PROC: 5A1935Z Respiratory Ventilation, Less than 24 Consecutive Hours (ICD-10-PCS; principal; 2022-10-28)
PROC: 3E043XZ Introduction of Vasopressor into Central Vein, Percutaneous Approach (ICD-10-PCS; 2022-10-28)
PROC: 0BH17EZ Insertion of Endotracheal Airway into Trachea, Via Natural or Artificial Opening (ICD-10-PCS; 2022-10-28)
DX: J96.01 Acute respiratory failure with hypoxia (principal); G93.41 Metabolic encephalopathy; I21.A1 Myocardial infarction type 2; N18.6 End stage renal disease; K72.00 Acute and subacute hepatic failure without coma; J90 Pleural effusion, not elsewhere classified; E87.20 Acidosis, unspecified; I48.91 Unspecified atrial fibrillation; R57.8 Other shock; E87.5 Hyperkalemia; Z51.5 Encounter for palliative care; Z20.822 Contact with and (suspected) exposure to COVID-19; E87.70 Fluid overload, unspecified; E11.22 Type 2 diabetes mellitus with diabetic chronic kidney disease; D63.1 Anemia in chronic kidney disease; Z95.0 Presence of cardiac pacemaker; Z99.81 Dependence on supplemental oxygen; Z99.2 Dependence on renal dialysis; I46.8 Cardiac arrest due to other underlying condition
CPT/HCPCS: 36415; 36416; 36556; 36600; 71045; 80053; 82553; 82805; 82945; 83605; 83615; 83735; 83880; 84145; 84157; 84484; 85025; 85060; 87040; 87070; 87205; 88112; 88305; 89051; 90935; 93005; 93010; 93306; 94002; 94003; 94640; 94660; 94760; 96374; C9113; G0257; J0282; J0610; J0696; J1644; J1720; J1815; J2270; J2405; J2704; J3010; J3475; J3490; J7070; J7611; J7999; P9047; U0003; U0005